=== PATIENT | male | born 1955 | race Caucasian/White ===

== ENCOUNTER 2017-04-07 00:15 | Inpatient (IN) | payer MEDICARE, OTHER ==
[2017-04-07] VITALS (7 sets, daily range): BP systolic 84–120; BP diastolic 55–76; PULSE 86–105; RESP 15–18; TEMP 97.5–98.6; O2SAT 95–97
[~2017-04-07] VITALS: Ht 182.9 cm; Wt 72.6 kg
[~2017-04-07 00:15] MED LIST: MORP30SU PO; POTA-267 PO; RANI150 PO; WARF7.5 PO
[2017-04-07] MEDS ORDERED: GABA300C5 PO (00:40)
[2017-04-07] MEDS ORDERED: TRAD5TAB PO (01:01)
[2017-04-07] MEDS ORDERED: THAL50CA PO (01:01)
[2017-04-07] MEDS ORDERED: WARF-20 PO (01:01)
[2017-04-07] MEDS ORDERED: ACYC400T PO (01:02)
[2017-04-07] MEDS ORDERED: ZANT150T2 PO (01:02)
[2017-04-07] MEDS ORDERED: METO25TA3 PO (01:02)
[2017-04-07] MEDS ORDERED: DEXA4TAB PO (01:05)
[2017-04-07] MEDS ORDERED: ATOR80TA45 PO (01:05)
[2017-04-07 01:24] LABS: INTERNATIONAL NORMALIZED RATIO 1.2 RATIO; PROTHROMBIN TIME - PATIENT 12.6 SEC (9.8-11.6)
[2017-04-07] MEDS ORDERED: CHEMO MEDICATION (01:31)
[2017-04-07 02:03] LABS: AUTOMATED NEUTROPHIL # 8.8 TH/MM3 (1.8-7.7); BASOPHIL % 0.1 % (0.0-2.0); EOSINOPHIL % 0.1 % (0.0-4.0); HEMATOCRIT 34.1 % (39.0-51.0); HEMOGLOBIN 11.5 GM/DL (13.0-17.0); LYMPH % 8.1 % (9.0-44.0); LYMPHOCYTE # 0.9 TH/MM3 (1.0-4.8); MEAN CORPUSCULAR HEMOGLOBIN 30.6 PG (27.0-34.0); MEAN CORPUSCULAR HGB CONC 33.6 % (32.0-36.0); MEAN PLATELET VOLUME 9.1 FL (7.0-11.0); MONO % 12.4 % (0.0-8.0); MONOCYTE # 1.4 TH/MM3 (0-0.9); NEUT % 79.3 % (16.0-70.0); PLATELET COUNT 120 TH/MM3 (150-450); RED BLOOD COUNT 3.75 MIL/MM3 (4.50-5.90); RED CELL DISTRIBUTION WIDTH 16.9 % (11.6-17.2); WHITE BLOOD COUNT 11.1 TH/MM3 (4.0-11.0)
[2017-04-07 02:38] LABS: BANDS 8 % (0-6); CORRECTED NUCLEATED RBC 1 /100 WBC (0-0); LYMPHOCYTES 2 % (9-44); MONOCYTES 6 % (0-8); MYELOCYTES 2 % (0-0); NEUTROPHIL # MANUAL DIFF 10.2 TH/MM3 (1.8-7.7); NUCLEATED RED BLOOD CELL 1 (0-0); POLYS (SEG NEUTROPHILS) 82 % (16-70)
--- NOTE | 2017-04-07 03:23 | PD ---
HPI Chief Complaint: Suicide Ideation/Attempt Time Seen by Provider: 00:31 Travel History International Travel<30 days: No Contact w/Intl Traveler<30days: No Traveled to known affect area: No History of Present Illness HPI 62-year-old white male with a history of multiple myeloma and hemodialysis presents to emergency department under Holly act for making suicidal statements of overdosing on his medicines. The patient states that he has terminal cancer. He had been living with his son. He was just recently [facility]. He has been out of the hospital now only for last few days. He states that she was concerned that he might be dying. He states that he had his hemodialysis yesterday. Patient is followed by Dr. Huerta. Patient denies any fevers fever or chills. No chest pain or shortness of breath. No nausea vomiting. No abdominal pain or urinary symptoms. He denies any bone pain. PFSH Past Medical History Asthma: No Cancer: Yes (MULTIPLE MYELOMA) Cardiovascular Problems: Yes (PT. STATES RAPID PULSE AT TIMES OVER PAST 10 YRS , ONLY LAST 10 MIN) COPD: No Diabetes: No Patient Takes Glucophage: No Diminished Hearing: No Endocrine: No Genitourinary: No Hepatitis: No Hiatal Hernia: No Hypertension: Yes Immune Disorder: No Kidney Stones: Yes Musculoskeletal: No Neurologic: No Psychiatric: No (PT DENIES) Reproductive: No Respiratory: No Immunizations Current: Yes Thyroid Disease: No Past Surgical History Abdominal Surgery: Yes (APPENDECTOMY) Appendectomy: Yes Endocrine Surgery: No Neurologic Surgery: No Other Surgery: Yes Social History Alcohol Use: No (PT DENIES) Tobacco Use: No Substance Use: No Allergies-Medications (Allergen,Severity, Reaction): Coded Allergies: No Known Allergies (Verified , 10/29/12) Reported Meds & Prescriptions Reported Meds & Active Scripts Active Reported [Chemo Medication] Dexamethasone 4 Mg Tab 12 Mg PO SATURDAY Atorvastatin (Atorvastatin Calcium) 80 Mg Tab 80 Mg PO DAILY Acyclovir 400 Mg Tab 400 Mg PO DAILY Metoprolol Tartrate 25 Mg Tab 12.5 Mg PO BID Zantac (Ranitidine HCl) 150 Mg Tab 150 Mg PO DAILY Warfarin 4 Mg Tab 4 Mg PO DAILY Tradjenta (Linagliptin) 5 Mg Tab 5 Mg PO DAILY Thalomid (Thalidomide) 50 Mg Cap 50 Mg PO DAILY Gabapentin 300 Mg Cap 300 Mg PO DAILY Review of Systems General / Constitutional: No: Fever Eyes: No: Visual changes HENT: No: Headaches Cardiovascular: No: Chest Pain or Discomfort Respiratory: No: Shortness of Breath Gastrointestinal: No: Abdominal Pain Genitourinary: No: Dysuria Musculoskeletal: No: Pain Skin: No Rash Neurologic: No: Weakness Psychiatric: Positive: Depression, Mood Disorder, No: Anxiety, Suicidal Ideations, Disorder of Thought, Substance Abuse, Homicidal Ideation Endocrine: No: Polydipsia Hematologic/Lymphatic: No: Easy Bruising Physical Exam Narrative GENERAL: Well-nourished, well-developed patient. Chronically ill appearing. SKIN: Warm and dry. HEAD: Normocephalic and atraumatic. EYES: No scleral icterus. No injection or drainage. ENT: No nasal drainage noted. Mucous membranes pink and somewhat dry. Airway patent. NECK: Supple, trachea midline. Moves head freely without obvious discomfort. Prior dialysis catheter in the right upper chest. There is a dialysis catheter in the left upper chest CARDIOVASCULAR: Regular rate and rhythm without murmurs, gallops, or rubs. RESPIRATORY: Breath sounds equal bilaterally. No accessory muscle use. GASTROINTESTINAL: Abdomen soft, non-tender, nondistended. EXTREMITIES: No cyanosis or edema. BACK: Nontender without obvious deformity. No CVA tenderness. NEURO: Patient is alert and oriented. no sensorimotor deficits. Nonfocal. Normal speech. PSYCH: No delusions. No auditory or visual hallucinations. Data Data Last Documented VS Vital Signs Date Time Temp Pulse Resp B/P (MAP) Pulse Ox O2 Delivery O2 Flow Rate FiO2 04/07/17 02:09 98 16 91/55 (67) 96 Room Air 04/07/17 00:57 98.6 Orders Orders Complete Blood Count With Diff (04/07/17 00:30) Comprehensive Metabolic Panel (04/07/17 00:30) Psych Screen (04/07/17 00:30) Drug Screen, Random Urine (04/07/17 00:30) Alcohol (Ethanol) (04/07/17 00:30) Salicylates (Aspirin) (04/07/17 00:30) Tylenol (Acetaminophen) (04/07/17 00:30) Prothrombin Time / Inr (Pt) (04/07/17 00:35) Act Partial Throm Time (Ptt) (04/07/17 00:35) Labs Laboratory Tests Test 04/07/17 00:50 04/07/17 01:40 Prothrombin Time 12.6 SEC Prothromb Time International Ratio 1.2 RATIO Activated Partial Thromboplast Time 21.9 SEC Salicylates Level LESS THAN 1.7 MG/DL White Blood Count 11.1 TH/MM3 Red Blood Count 3.75 MIL/MM3 Hemoglobin 11.5 GM/DL Hematocrit 34.1 % Mean Corpuscular Volume 91.0 FL Mean Corpuscular Hemoglobin 30.6 PG Mean Corpuscular Hemoglobin Concent 33.6 % Red Cell Distribution Width 16.9 % Platelet Count 120 TH/MM3 Mean Platelet Volume 9.1 FL Neutrophils (%) (Auto) 79.3 % Lymphocytes (%) (Auto) 8.1 % Monocytes (%) (Auto) 12.4 % Eosinophils (%) (Auto) 0.1 % Basophils (%) (Auto) 0.1 % Neutrophils # (Auto) 8.8 TH/MM3 Lymphocytes # (Auto) 0.9 TH/MM3 Monocytes # (Auto) 1.4 TH/MM3 Eosinophils # (Auto) 0.0 TH/MM3 Basophils # (Auto) 0.0 TH/MM3 CBC Comment AUTO DIFF Differential Total Cells Counted 100 Neutrophils % (Manual) 82 % Band Neutrophils % 8 % Lymphocytes % 2 % Monocytes % 6 % Neutrophils # (Manual) 10.2 TH/MM3 Myelocytes 2 % Nucleated Red Blood Cells 1 /100 WBC Differential Comment FINAL DIFF MANUAL Platelet Estimate LOW Platelet Morphology Comment NORMAL MDM Medical Decision Making Medical Screen Exam Complete: Yes Emergency Medical Condition: Yes Medical Record Reviewed: Yes Differential Diagnosis MDM: High Differential diagnoses: Schizophrenia, schizoaffective disorder, bipolar, anxiety, depression, adjustment reaction, mood disorder NOS, ODD, depressive disorder NOS, dementia, dementia with agitation, psychosis NOS, substance induced mood disorder, DMDD, Asperger syndrome, infection,electrolyte abnormality, malingering. Narrative Course We will attempt to get his medical records from [place] The patient is medically cleared. Finn Schroeder Apr 07, 2017 03:23
[2017-04-07 03:56] LABS: ACETAMINOPHEN LESS THAN 2.0 MCG/ML (10.0-30.0); ALBUMIN 2.5 GM/DL (3.4-5.0); ALKALINE PHOSPHATASE 132 U/L (45-117); ALT (GPT) 18 U/L (12-78); AST (GOT) 44 U/L (15-37); BICARBONATE 27.2 MEQ/L (21.0-32.0); BLOOD UREA NITROGEN 12 MG/DL (7-18); CALCIUM 8.3 MG/DL (8.5-10.1); CHLORIDE 102 MEQ/L (98-107); CREATININE 3.12 MG/DL (0.60-1.30); GLOMERULAR FILTRATION RATE 20 ML/MIN (>89); GLUCOSE,RANDOM 101 MG/DL (74-106); SODIUM (NA) 137 MEQ/L (136-145); TOTAL BILIRUBIN ADULT 0.8 MG/DL (0.2-1.0); TOTAL PROTEIN 9.8 GM/DL (6.4-8.2)
[2017-04-07 06:51] LABS: AMORPHOUS SEDIMENT, URINE FEW; BACTERIA, URINE FEW /hpf; BLOOD, URINE MOD (NEG); GLUCOSE,URINE NEG (NEG); HYALINE CAST, URINE 1 /lpf (RARE); KETONE, URINE TRACE mg/dL (NEG); MUCUS URINE FEW /lpf (OCC); NITRITE,URINE NEG (NEG); SQUAMOUS EPITHELIAL CELL URINE 14 /hpf (0-5); URINE COLOR YELLOW (YELLW/STRAW); URINE LEUKOCYTE ESTERASE TRACE (NEG)
[2017-04-07 06:57] LABS: BILIRUBIN, URINE NEG (NEG)
[2017-04-07] MEDS: CEPHALEXIN MONOHYDRATE 250 MG CAP PO SCH ×2 (08:39→15:01)
--- NOTE | 2017-04-07 08:39 | PD ---
Physical Exam Time Seen by Provider: 08:30 Narrative 0830: I reviewed the patient's labs and urinalysis with signs of infection. Reflex to urine culture. Patient on hemodialysis. Keflex 250 mg ordered every 8 hours for calculated creatinine clearance of 31. Data Data Last Documented VS Vital Signs Date Time Temp Pulse Resp B/P (MAP) Pulse Ox O2 Delivery O2 Flow Rate FiO2 04/07/17 04:18 109/62 (78) 04/07/17 03:14 90 15 96 Room Air 04/07/17 00:57 98.6 Orders Orders Complete Blood Count With Diff (04/07/17 00:30) Comprehensive Metabolic Panel (04/07/17 00:30) Psych Screen (04/07/17 00:30) Drug Screen, Random Urine (04/07/17 00:30) Alcohol (Ethanol) (04/07/17 00:30) Salicylates (Aspirin) (04/07/17 00:30) Tylenol (Acetaminophen) (04/07/17 00:30) Prothrombin Time / Inr (Pt) (04/07/17 00:35) Act Partial Throm Time (Ptt) (04/07/17 00:35) Urinalysis - C+S If Indicated (04/07/17 05:48) Urine Culture (04/07/17 06:05) Diet Regular Basic (04/07/17 Breakfast) Cephalexin (Keflex) (04/07/17 08:30) Labs Laboratory Tests Test 04/07/17 00:50 04/07/17 01:40 04/07/17 06:05 Prothrombin Time 12.6 SEC Prothromb Time International Ratio 1.2 RATIO Activated Partial Thromboplast Time 21.9 SEC Blood Urea Nitrogen 12 MG/DL Creatinine 3.12 MG/DL Random Glucose 101 MG/DL Total Protein 9.8 GM/DL Albumin 2.5 GM/DL Calcium Level 8.3 MG/DL Alkaline Phosphatase 132 U/L Aspartate Amino Transf (AST/SGOT) 44 U/L Alanine Aminotransferase (ALT/SGPT) 18 U/L Total Bilirubin 0.8 MG/DL Sodium Level 137 MEQ/L Potassium Level 3.3 MEQ/L Chloride Level 102 MEQ/L Carbon Dioxide Level 27.2 MEQ/L Anion Gap 8 MEQ/L Estimat Glomerular Filtration Rate 20 ML/MIN Salicylates Level LESS THAN 1.7 MG/DL Acetaminophen Level LESS THAN 2.0 MCG/ML Ethyl Alcohol Level LESS THAN 3 MG/DL White Blood Count 11.1 TH/MM3 Red Blood Count 3.75 MIL/MM3 Hemoglobin 11.5 GM/DL Hematocrit 34.1 % Mean Corpuscular Volume 91.0 FL Mean Corpuscular Hemoglobin 30.6 PG Mean Corpuscular Hemoglobin Concent 33.6 % Red Cell Distribution Width 16.9 % Platelet Count 120 TH/MM3 Mean Platelet Volume 9.1 FL Neutrophils (%) (Auto) 79.3 % Lymphocytes (%) (Auto) 8.1 % Monocytes (%) (Auto) 12.4 % Eosinophils (%) (Auto) 0.1 % Basophils (%) (Auto) 0.1 % Neutrophils # (Auto) 8.8 TH/MM3 Lymphocytes # (Auto) 0.9 TH/MM3 Monocytes # (Auto) 1.4 TH/MM3 Eosinophils # (Auto) 0.0 TH/MM3 Basophils # (Auto) 0.0 TH/MM3 CBC Comment AUTO DIFF Differential Total Cells Counted 100 Neutrophils % (Manual) 82 % Band Neutrophils % 8 % Lymphocytes % 2 % Monocytes % 6 % Neutrophils # (Manual) 10.2 TH/MM3 Myelocytes 2 % Nucleated Red Blood Cells 1 /100 WBC Differential Comment FINAL DIFF MANUAL Platelet Estimate LOW Platelet Morphology Comment NORMAL Urine Color YELLOW Urine Turbidity HAZY Urine pH 6.0 Urine Specific [place] 1.024 Urine Protein GREATER THAN 600 mg/dL Urine Glucose (UA) NEG mg/dL Urine Ketones TRACE mg/dL Urine Occult Blood MOD Urine Nitrite NEG Urine Bilirubin NEG Urine Urobilinogen 2.0 MG/DL Urine Leukocyte Esterase TRACE Urine RBC 3 /hpf Urine WBC 9 /hpf Urine Squamous Epithelial Cells 14 /hpf Urine Amorphous Sediment FEW Urine Bacteria FEW /hpf Urine Hyaline Casts 1 /lpf Urine Mucus FEW /lpf Microscopic Urinalysis Comment CULTURE INDICATED Urine Opiates Screen NEG Urine Barbiturates Screen NEG Urine Amphetamines Screen NEG Urine Benzodiazepines Screen POS Urine Cocaine Screen NEG Urine Cannabinoids Screen NEG MDM Supervised Visit with CHRIS: No Narrative Course 0830: I reviewed the patient's labs and urinalysis with signs of infection. Reflex to urine culture. Patient on hemodialysis. Keflex 250 mg ordered every 8 hours for calculated creatinine clearance of 31. Diagnosis Primary Impression: Urinary tract infection Qualified Codes: N39.0 - Urinary tract infection, site not specified Arely Gomez [facility] Apr 07, 2017 08:39
--- NOTE | 2017-04-07 11:18 | MB ---
cc: ÁNGEL SERRANO DATE OF CONSULTATION: 04/07/2017 PHYSICIAN REQUESTING CONSULTATION Emergency department REASON FOR CONSULTATION Holly Act HISTORY OF PRESENT ILLNESS Mr. Benitez is a 62-year-old male with possible history of some depression issues who presents under a Holly Act by [facility]'s Department alleging that the patient stated to the family that he wanted to end it all. Of note the patient has multiple myeloma and is on hemodialysis and told the ED provider that he has terminal cancer. Reviewing the electronic medical record, I see no previous psychiatric contact within our system. The patient is seen and examined. Chart reviewed. Case discussed with nurse in the J pod. On my examination today, the patient admits to making statements regarding wanting to end it all. He says that he had just gone to dialysis and was "feeling pretty low." He endorses poor sleep and poor appetite. He endorses anhedonia. He endorses hopeless and worthless feelings. He is fairly inert and psychomotor slowed. He denies any actual suicidal or homicidal ideation but seems unreliable to contract for safety in his present state. Denies audiovisual hallucinations. No delusions elicited. Denies subjective confusion although mental status testing suggests a delirious process, see below. The remainder of psychiatric ROS is negative. No physical complaints. With the patient's permission, I did endeavor to obtain collateral from his son Blaine Benitez at [phone] and left a generic voice mail requesting a call back. I also tried to reach Blaine at an alternate number [phone] and left a generic voice mail there as well. PAST PSYCHIATRIC HISTORY Unclear if the patient is a reliable historian as he is somewhat confused as I said. The patient initially denies a history of psychiatric diagnosis but then does admit to a course of treatment with antidepressants but says that they were ineffective. He is not currently under the care of a psychiatrist. He denies a history of psychiatric admissions or suicide attempts. FAMILY HISTORY The patient denies family history of serious mental illness or suicide. CHEMICAL DEPENDENCY HISTORY: The patient denies any abuse of drugs or alcohol. SOCIAL HISTORY The patient initially could not tell me with whom he lived but then clarified that he lives with his son, Blaine. He is with three children. He is college educated and previously worked as an junior accountant bookkeeper. He denies any history. Denies any access to guns or firearms. He believes in God. PAST MEDICAL HISTORY See electronic medical record. MEDICATIONS 1. Acyclovir 400 mg daily. 2. Warfarin 4 mg daily. 3. Atorvastatin 80 mg daily. 4. Metoprolol 12.5 mg twice daily. 5. Gabapentin 300 mg daily. 6. Zantac 150 mg daily. 7. Dexamethasone 12 mg on Saturday. 8. Tradjenta 5 mg daily. 9. Thalidomide 50 mg daily. ALLERGIES No known allergies. REVIEW OF SYSTEMS Except as noted in HPI this is negative. PHYSICAL EXAMINATION Vital signs: Temperature 98.6, pulse 90, respirations 15, blood pressure 84/60, pulse oximetry 96% on room air. Physical examination completed by the ED provider. On my examination today, the patient appears to be in no acute physical distress. He is somewhat ill-appearing. No motor abnormalities noted. LABORATORY Reviewed: CBC reveals mild leukocytosis with white blood cell count of 11.1. Mild anemia with a hemoglobin of 11.5 and mild thrombocytopenia with platelet count 120. CMP reveals mild transaminitis and hypokalemia at 3.3. Urine toxicology is positive for benzodiazepines. Alcohol level undetectable. Urinalysis concerning for UTI and urine culture is pending. No head imaging on file. MENTAL STATUS EXAM The patient is in hospital attire. He is fairly disheveled and ill-appearing. He is awake and alert and oriented to person, month and year only. He is unsure of the location. His registration is 3/3 but his recall at three minutes is 0/3. He is able to spell the word world forwards but gives it backwards as WORLD. He is unable to perform vigilance A testing. He is able to name two items but cannot repeat a phrase. He gives the current president as Trump but is unsure of any previous presidents. No motor abnormalities noted. Speech is somewhat slow but otherwise within normal limits for tone and volume. Language and fund of knowledge are fair. Focus and concentration seem impaired. Memory seems impaired on clinical exam. Mood is dysphoric and affect restricted. Thought process somewhat disorganized consistent with his confusional state. No delusions elicited. Denies audiovisual hallucinations. Denies suicidal or homicidal ideation but it is not clear that he is reliable to contract for safety. Insight and judgment seem poor. ASSESSMENT/PLAN 1. Adjustment disorder with depressed mood, F43.21. Rule out major depressive episode. 2. Delirium due to general medical condition, F05. This is a 62-year-old male with psychiatric history as detailed above who is presented to the emergency department under a Holly Act. On my evaluation today, the patient elaborates numerous depressive symptoms. He is confused on my examination today and I wonder about a delirium due to perhaps UTI verses some sort of more persistent neurocognitive disorder. The patient does admit to making statements regarding wanting to end it all to his family but denies suicidal ideation now. I fear that his judgment is quite poor, perhaps because of depressed mood or due to delirium. In any event, I school lunch manager that he is not reliable to contract for safety in his present state. Consequently, I will leave the Holly Act in place and we will plan to admit to the inpatient psychiatric unit for observation. As our inpatient unit is full, I have instructed the nurse to refer the patient for inpatient psychiatric services elsewhere. Recommend the patient be retained in the emergency room until inpatient placement can be found. Thank you very much for this consultation. Ángel Serrano DC/RANDA /10:03 AM /10:43 AM ISABEL
[2017-04-07] MEDS ORDERED: MAGNESIUM HYDROXIDE SUSP 30 ML CUP PO PRN (15:15)
[2017-04-07] MEDS ORDERED: LORazepam 2 MG/ML VIAL IM PRN (15:15)
[2017-04-07] MEDS ORDERED: ACETAMINOPHEN 325 MG TAB PO PRN (15:15)
[2017-04-07] MEDS ORDERED: ALUMINUM/MAGNESIUM/SIMETH 30 ML CUP PO PRN (15:15)
[2017-04-07] MEDS ORDERED: NICOTINE 21 MG/24 HR PATCH T-DERMAL PRN (15:15)
[2017-04-07] MEDS ORDERED: LORazepam 0.5 MG TAB PO PRN (15:15)
[2017-04-07] MEDS ORDERED: BENZTROPINE MESYLATE 2 MG/2 ML VIAL IM PRN (15:15)
[2017-04-07] MEDS ORDERED: BENZTROPINE MESYLATE 1 MG TAB PO PRN (15:15)
[2017-04-07] MEDS ORDERED: diphenhydrAMINE HCL 25 MG CAP PO PRN (15:30)
[2017-04-07] MEDS ORDERED: HYDROmorphone HCL 4 MG TAB PO PRN (17:00)
[2017-04-07] MEDS ORDERED: PROC10003 SQ (17:06)
[2017-04-07] MEDS ORDERED: LORA1TAB12 PO (17:06)
[2017-04-07] MEDS ORDERED: TAMS5CAP PO (17:06)
[2017-04-07] MEDS ORDERED: HYDR4TAB PO (17:06)
[2017-04-07] MEDS ORDERED: MIRA3350 PO (17:06)
[2017-04-07] MEDS ORDERED: VANC1000P IV (17:06)
[2017-04-07] MEDS ORDERED: IPRASOL INH (17:06)
--- NOTE | 2017-04-07 17:09 | PD.CONS ---
HPI Service [facility] Hospitalists Consult Requested By Dr. Dl Serrano Reason for Consult Medical Management Primary Care Physician Dr. Adrian Whitfield MD Diagnoses: History of Present Illness Mr. Benitez is a pleasant 62 y/o male with Multiple Myeloma, diagnosed in 2010 and had multiple pathologic fractures s/p radiation therapy and chemo and underwent autologous bone marrow transplant in 2013, chronic renal failure on HD , and who was recently hospitalized at [facility] from 03/27/17 to 04/05/17 with Methicillin resistant Staph Epidermidis bacteremia and had PermCath removed on 03/30/17. According to the discharge summary from [facility] he was found to have an acute metabolic encephalopathy secondary to sepsis and possible uremia and an infected PermCath with Methicillin resistant Staph Epidermidis and was treated with Vancomycin 1 gram post-dialysis on . The pt states that he only does dialysis two days per week. He states that he did receive his normal dialysis on 04/06/17. Prior to his hospitalization at [facility] the pts Coumadin, which he was taking for recurrent DVTs, was stopped due to hematuria and was following outpt with Urology. Pt was admitted to [facility] on 04/07/17 under Holly Act for reported suicidal ideation. Pt states that after his prolonged hospitalization he wasn't sure he wanted to continue with things and was trying to decide about Hospice. He states that his son thought that he was being suicidal and called the police. Pt denies any suicidal ideation at the time of my evaluation. Review of Systems Constitutional: DENIES: Fever, Chills Eyes: DENIES: Vision loss Ears, nose, mouth, throat: DENIES: Hearing loss Respiratory: DENIES: Cough, Shortness of breath Cardiovascular: DENIES: Chest pain, Palpitations Gastrointestinal: DENIES: Abdominal pain, Black stools, Bloody stools, Diarrhea , Nausea, Vomiting Genitourinary: DENIES: Urgency, Hematuria, Dysuria Musculoskeletal: DENIES: Back pain, Neck pain Integumentary: DENIES: Rash Neurologic: DENIES: Headache Psychiatric: COMPLAINS OF: Depression, DENIES: Confusion Past Family Social History Past Medical History Recently hospitalized at [facility] with Methicillin resistant Staph Epidermidis bacteremia and had PermCath removed on 03/30 Multiple Myeloma, diagnosed in 2010 and had multiple pathologic fractures s/p radiation therapy and chemo and underwent autologous bone marrow transplant in 2014 Chronic renal failure on HD ? Recurrent DVTs, was on chronic anticoagulation with coumadin up until he recently developed hematuria Chemo induced peripheral neuropathy Hx of pathologic fractures due to multiple myeloma, left femur, right shoulder, lumbar vertebrae Steroid induced diabetes mellitus Chronic pain on chronic opiate Past Surgical History Autologous bone marrow transplant 2014 Bone marrow biopsy Appendectomy PermCath placement and recent removal on 03/30/17 Port placement, left chest Orthopedic surgery for femur fracture and humerus fracture Knee arthroscopy Reported Medications -Atorvastatin 80 Mg PO DAILY -Metoprolol Tartrate 12.5 Mg PO BID -Zantac 150 Mg PO DAILY -Warfarin 4 Mg PO DAILY -Tradjenta 5 Mg PO DAILY -Thalomid 50 Mg PO DAILY -Gabapentin 300 Mg PO DAILY -Dilaudid 4mg Q4H PRN -Tamsulosin 0.4mf PO DAILY -Lorazepam 1mg TID PRN Anxiety -Albuterol/Ipratropium 2.5,g-0.5mg/3mL TID -Acyclovir 200 Mg PO BID --Vancomycin 1gram IV --Dexamethasone 4 Mg Tab 12 Mg PO SATURDAY (?4mg ) --Epoetin Juan 10,000units/mL IV Allergies: Coded Allergies: No Known Allergies (Verified , 10/29/12) Family History Father at age 87 from lymphoma Mother at age 86 from Alzheimer dementia Social History Denies any alcohol, tobacco or illicit drug use Physical Exam Vital Signs Vital Signs Date Time Temp Pulse Resp B/P (MAP) Pulse Ox O2 Delivery O2 Flow Rate FiO2 04/07/17 12:02 97.5 95 18 120/76 (91) 97 Room Air 04/07/17 11:46 86 18 116/66 (83) 97 Room Air 04/07/17 04:18 109/62 (78) 04/07/17 03:14 90 15 84/60 (68) 96 Room Air 04/07/17 02:09 98 16 91/55 (67) 96 Room Air 04/07/17 00:57 98.6 94 16 98/56 (70) 96 Room Air Physical Exam GENERAL: This is a well-nourished, well-developed patient, in no apparent distress. SKIN: No rashes, ecchymoses or lesions. Cool and dry. HEENT: Atraumatic. Normocephalic. No temporal or scalp tenderness. No scleral icterus. No injection or drainage. Airway patent. NECK: Trachea midline, supple, nontender. IJ in left neck CARDIO: Regular. RESP: CTA bilaterally. No wheezes, rales, or rhonchi. ABD: +BS, soft, non-tender, nondistended. EXT: Extremities without clubbing, cyanosis, or edema. NEURO: Awake and alert. Motor and sensory grossly within normal limits. Normal speech. Laboratory Laboratory Tests Test 04/07/17 00:50 04/07/17 01:40 04/07/17 06:05 Prothrombin Time 12.6 Prothromb Time International Ratio 1.2 Activated Partial Thromboplast Time 21.9 Blood Urea Nitrogen 12 Creatinine 3.12 Random Glucose 101 Total Protein 9.8 Albumin 2.5 Calcium Level 8.3 Alkaline Phosphatase 132 Aspartate Amino Transf (AST/SGOT) 44 Alanine Aminotransferase (ALT/SGPT) 18 Total Bilirubin 0.8 Sodium Level 137 Potassium Level 3.3 Chloride Level 102 Carbon Dioxide Level 27.2 Anion Gap 8 Estimat Glomerular Filtration Rate 20 Salicylates Level LESS THAN 1.7 Acetaminophen Level LESS THAN 2.0 Ethyl Alcohol Level LESS THAN 3 White Blood Count 11.1 Red Blood Count 3.75 Hemoglobin 11.5 Hematocrit 34.1 Mean Corpuscular Volume 91.0 Mean Corpuscular Hemoglobin 30.6 Mean Corpuscular Hemoglobin Concent 33.6 Red Cell Distribution Width 16.9 Platelet Count 120 Mean Platelet Volume 9.1 Neutrophils (%) (Auto) 79.3 Lymphocytes (%) (Auto) 8.1 Monocytes (%) (Auto) 12.4 Eosinophils (%) (Auto) 0.1 Basophils (%) (Auto) 0.1 Neutrophils # (Auto) 8.8 Lymphocytes # (Auto) 0.9 Monocytes # (Auto) 1.4 Eosinophils # (Auto) 0.0 Basophils # (Auto) 0.0 CBC Comment AUTO DIFF Differential Total Cells Counted 100 Neutrophils % (Manual) 82 Band Neutrophils % 8 Lymphocytes % 2 Monocytes % 6 Neutrophils # (Manual) 10.2 Myelocytes 2 Nucleated Red Blood Cells 1 Differential Comment FINAL DIFF MANUAL Platelet Estimate LOW Platelet Morphology Comment NORMAL Urine Color YELLOW Urine Turbidity HAZY Urine pH 6.0 Urine Specific Pool 1.024 Urine Protein GREATER THAN 600 Urine Glucose (UA) NEG Urine Ketones TRACE Urine Occult Blood MOD Urine Nitrite NEG Urine Bilirubin NEG Urine Urobilinogen 2.0 Urine Leukocyte Esterase TRACE Urine RBC 3 Urine WBC 9 Urine Squamous Epithelial Cells 14 Urine Amorphous Sediment FEW Urine Bacteria FEW Urine Hyaline Casts 1 Urine Mucus FEW Microscopic Urinalysis Comment CULTURE INDICATED Urine Opiates Screen NEG Urine Barbiturates Screen NEG Urine Amphetamines Screen NEG Urine Benzodiazepines Screen POS Urine Cocaine Screen NEG Urine Cannabinoids Screen NEG Date/Time Source Procedure Growth Status 04/07/17 06:05 Urine Clean Catch Urine Culture Pending Worksheet Result Diagram: 04/07/17 0140 04/07/17 0050 Assessment and Plan Problem List: (1) Depression ICD Codes: F32.9 - Major depressive disorder, single episode, unspecified Plan: - Pt is a 62 y/o male with Multiple Myeloma, chronic renal failure on HD, and who was recently hospitalized at [facility] from 03/27/17 to 04/05/17 with Methicillin resistant Staph Epidermidis bacteremia and had PermCath removed on 03/30/17. According to the discharge summary from [facility] he was found to have an acute metabolic encephalopathy secondary to sepsis and possible uremia and an infected PermCath with Methicillin resistant Staph Epidermidis and was treated with Vancomycin 1 gram post-dialysis on , to be completed on . The pt states that he only does dialysis two days per week. He states that he did receive his normal dialysis on 04/06/17. Prior to his hospitalization at [facility] the pts Coumadin, which he was taking for recurrent DVTs, was stopped due to hematuria and was following outpt with Urology. Depression Holly Act for suicidal ideation -Pt was admitted to [facility] on 04/07/17 under Holly Act for reported suicidal ideation. Pt states that after his prolonged hospitalization he wasn't sure he wanted to continue with things and was trying to decide about Hospice. He states that his son thought that he was being suicidal and called the police. Pt denies any suicidal ideation at the time of my evaluation. - Psychiatry is following - Depression management per Psychiatry ESRD on HD Recent Methicillin resistant Staph Epidermidis bacteremia and had PermCath removed on 03/30/17 - Nephrology is consulted - Pt was previously being treated with Vancomycin 1 gram post-dialysis on Tue -Thurs-Sat, to be completed on 04/13/16 according to discharge summary from [facility]. - Monitor labs - Pt also reportedly receives Procrit three times per week according to the discharge summary Multiple Myeloma - diagnosed in 2010 and had multiple pathologic fractures s/p radiation therapy and chemo and underwent autologous bone marrow transplant in 2013 - He follows with Dr. Mayes - Cont. on Thalomid 50 Mg PO DAILY Recurrent DVTs Recent hematuria - Pt had been on Coumadin. This has been on hold due to hematuria - Pt follows as an outpt with Urology - Heparin 5000 units BID for now Steroid induced diabetes mellitus - NovoLog SSI - Accu checks - Home meds continued (2) ESRD (end stage renal disease) ICD Codes: N18.6 - End stage renal disease (3) Myeloma ICD Codes: C90.00 - Multiple myeloma not having achieved remission (4) Anemia ICD Codes: D64.9 - Anemia, unspecified Karen Sharp Apr 07, 2017 17:08
[2017-04-07] MEDS ORDERED: POTASSIUM CHLORIDE 20 MEQ CONTROLLED RELEASE TAB PO ONE (17:15)
--- NOTE | 2017-04-07 17:17 | PD.CONS ---
[facility] Service Nephrology Consult Requested By Reason for Consult ESRD Primary Care Physician Dl Higgins MD History of Present Illness Mr. Azul apparently has multiple myeloma. He has CKD, requiring dialysis. He says he gets dialysis twice weekly but according to previous notes he gets dialysis 3 times /week. Last dialysis was yesterday. He was admitted to [facility] after developing confusion and disorientation. He probably was diagnosed with catheter related sepsis. He is on Vancomycin. PermCath was removed. He now has left IJ Vascath. He has been Holly acted and admitted after he allegedly became suicidal. Patient himself reports that all he wanted to do was talk to hospice about his options. Review of Systems Constitutional: COMPLAINS OF: Fatigue, Weight loss, DENIES: Chills Cardiovascular: DENIES: Chest pain, Palpitations, Syncope Gastrointestinal: DENIES: Abdominal pain, Black stools, Bloody stools Musculoskeletal: DENIES: Joint pain Past Family Social History Allergies: Coded Allergies: No Known Allergies (Verified , 10/29/12) Past Medical History DM 2 Hypertension Multiple myeloma ESRD Anemia Reported Medications Dexamethasone 4 Mg Tab 12 Mg PO SATURDAY Atorvastatin (Atorvastatin Calcium) 80 Mg Tab 80 Mg PO DAILY Acyclovir 400 Mg Tab 400 Mg PO DAILY Metoprolol Tartrate 25 Mg Tab 12.5 Mg PO BID Zantac (Ranitidine HCl) 150 Mg Tab 150 Mg PO DAILY Warfarin 4 Mg Tab 4 Mg PO DAILY Tradjenta (Linagliptin) 5 Mg Tab 5 Mg PO DAILY Thalomid (Thalidomide) 50 Mg Cap 50 Mg PO DAILY Gabapentin 300 Mg Cap 300 Mg PO DAILY Active Ordered Medications Current Medications Medications (Trade) Dose Ordered Sig/Saranya Route Start Time Stop Time Status Last Admin (Keflex) 250 mg Q8HR PO 04/07/17 08:30 04/14/17 08:29 04/07/17 15:01 (Ativan) 0.5 mg Q12H PRN PO 04/07/17 15:15 (Ativan Inj) 0.5 mg Q12H PRN IM 04/07/17 15:15 (Benadryl) 25 mg HS PRN PO 04/07/17 15:30 (Tylenol) 650 mg Q4H PRN PO 04/07/17 15:15 (Milk Of Magnesia Liq) 30 ml DAILY PRN PO 04/07/17 15:15 (Mag-Al Plus Susp Liq) 30 ml Q6H PRN PO 04/07/17 15:15 (Habitrol 21 Mg Patch.24 Hr) 1 patch DAILY PRN T-DERMAL 04/07/17 15:15 (Cogentin) 0.5 mg Q12H PRN PO 04/07/17 15:15 (Cogentin Inj) 0.5 mg Q12H PRN IM 04/07/17 15:15 Miscellaneous Information 1 DAILY T-DERMAL 04/08/17 09:00 (Zovirax) 400 mg DAILY PO 04/08/17 09:00 (Lipitor) 80 mg DAILY PO 04/08/17 09:00 (Decadron) 12 mg Fr@0900 PO 04/12/17 09:00 (Neurontin) 300 mg DAILY PO 04/08/17 09:00 (Lopressor) 12.5 mg BID PO 04/07/17 21:00 (Coumadin) 4 mg DAILY@1600 PO 04/08/17 16:00 Non-Formulary Medication 5 mg DAILY PO 04/08/17 09:00 UNV (Pepcid) 20 mg DAILY PO 04/08/17 09:00 Non-Formulary Medication 50 mg DAILY PO 04/08/17 09:00 UNV Patient Own Medication PT OWN MED: TRADJE... DAILY PO 04/08/17 09:00 UNV Family History reviewed, non contributory Social History Lives with his son in [place]. Physical Exam Vital Signs Vital Signs Date Time Temp Pulse Resp B/P (MAP) Pulse Ox O2 Delivery O2 Flow Rate FiO2 04/07/17 12:02 97.5 95 18 120/76 (91) 97 Room Air 04/07/17 11:46 86 18 116/66 (83) 97 Room Air 04/07/17 04:18 109/62 (78) 04/07/17 03:14 90 15 84/60 (68) 96 Room Air 04/07/17 02:09 98 16 91/55 (67) 96 Room Air 04/07/17 00:57 98.6 94 16 98/56 (70) 96 Room Air Physical Exam GENERAL: awake, alert, oriented. Left IJ Vascath. SKIN: Warm and dry. HEAD: Normocephalic. EYES: No scleral icterus. No injection or drainage. NECK: Supple, trachea midline. No JVD or lymphadenopathy. CARDIOVASCULAR: Regular rate and rhythm without murmurs, gallops, or rubs. RESPIRATORY: Breath sounds equal bilaterally. No accessory muscle use. GASTROINTESTINAL: Abdomen soft, non-tender, nondistended. MUSCULOSKELETAL: No cyanosis, or edema. BACK: Nontender without obvious deformity. No CVA tenderness. Laboratory Laboratory Tests Test 04/07/17 00:50 04/07/17 01:40 04/07/17 06:05 Prothrombin Time 12.6 Prothromb Time International Ratio 1.2 Activated Partial Thromboplast Time 21.9 Blood Urea Nitrogen 12 Creatinine 3.12 Random Glucose 101 Total Protein 9.8 Albumin 2.5 Calcium Level 8.3 Alkaline Phosphatase 132 Aspartate Amino Transf (AST/SGOT) 44 Alanine Aminotransferase (ALT/SGPT) 18 Total Bilirubin 0.8 Sodium Level 137 Potassium Level 3.3 Chloride Level 102 Carbon Dioxide Level 27.2 Anion Gap 8 Estimat Glomerular Filtration Rate 20 Salicylates Level LESS THAN 1.7 Acetaminophen Level LESS THAN 2.0 Ethyl Alcohol Level LESS THAN 3 White Blood Count 11.1 Red Blood Count 3.75 Hemoglobin 11.5 Hematocrit 34.1 Mean Corpuscular Volume 91.0 Mean Corpuscular Hemoglobin 30.6 Mean Corpuscular Hemoglobin Concent 33.6 Red Cell Distribution Width 16.9 Platelet Count 120 Mean Platelet Volume 9.1 Neutrophils (%) (Auto) 79.3 Lymphocytes (%) (Auto) 8.1 Monocytes (%) (Auto) 12.4 Eosinophils (%) (Auto) 0.1 Basophils (%) (Auto) 0.1 Neutrophils # (Auto) 8.8 Lymphocytes # (Auto) 0.9 Monocytes # (Auto) 1.4 Eosinophils # (Auto) 0.0 Basophils # (Auto) 0.0 CBC Comment AUTO DIFF Differential Total Cells Counted 100 Neutrophils % (Manual) 82 Band Neutrophils % 8 Lymphocytes % 2 Monocytes % 6 Neutrophils # (Manual) 10.2 Myelocytes 2 Nucleated Red Blood Cells 1 Differential Comment FINAL DIFF MANUAL Platelet Estimate LOW Platelet Morphology Comment NORMAL Urine Color YELLOW Urine Turbidity HAZY Urine pH 6.0 Urine Specific [place] 1.024 Urine Protein GREATER THAN 600 Urine Glucose (UA) NEG Urine Ketones TRACE Urine Occult Blood MOD Urine Nitrite NEG Urine Bilirubin NEG Urine Urobilinogen 2.0 Urine Leukocyte Esterase TRACE Urine RBC 3 Urine WBC 9 Urine Squamous Epithelial Cells 14 Urine Amorphous Sediment FEW Urine Bacteria FEW Urine Hyaline Casts 1 Urine Mucus FEW Microscopic Urinalysis Comment CULTURE INDICATED Urine Opiates Screen NEG Urine Barbiturates Screen NEG Urine Amphetamines Screen NEG Urine Benzodiazepines Screen POS Urine Cocaine Screen NEG Urine Cannabinoids Screen NEG Date/Time Source Procedure Growth Status 04/07/17 06:05 Urine Clean Catch Urine Culture Pending Worksheet Result Diagram: 04/07/17 0140 04/07/17 0050 Assessment and Plan Problem List: (1) ESRD (end stage renal disease) ICD Codes: N18.6 - End stage renal disease Plan: Last dialysis was yesterday. No indication for dialysis today. Monitor electrolytes and fluid status. Avoid Gadolinium. High protein diet. Fluid restriction to 1500 ml/day. (2) Myeloma ICD Codes: C90.00 - Multiple myeloma not having achieved remission Plan: Has been on chemotherapy. Details of his disease and prognosis are not known to me at this time. (3) Sepsis ICD Codes: A41.9 - Sepsis, unspecified organism Plan: Apparently diagnosed with MRSA sepsis recently. PermCath was removed, and now he has a Vascath. Has been on Vancomycin. We will continue it with dialysis. Review old records. (4) Anemia ICD Codes: D64.9 - Anemia, unspecified Plan: Hemoglobin is acceptable. Assessment and Plan Thanks for the consult. I will follow. Dawit Huber MD Apr 07, 2017 17:17
[2017-04-07] MEDS ORDERED: DEXTROSE 50% IN WATER 50 ML VIAL(D50) IV PUSH PRN (17:30)
[2017-04-07] MEDS ORDERED: GLUCAGON 1 MG/ML VIAL OTHER PRN (17:30)
[2017-04-07] MEDS: INSULIN ASPART SUPPLEMENTAL SCALE SQ SCH (21:00)
[2017-04-07] MEDS: HEPARIN SODIUM - SQ 10,000 UNITS/ML VIAL SQ SCH (21:40)
[2017-04-07] MEDS: TAMSULOSIN HCL 0.4 MG CAP PO SCH (21:41)
[2017-04-07] MEDS: METOPROLOL TARTRATE 25 MG TAB PO SCH (21:41)
[2017-04-08 06:01] LABS: AUTOMATED NEUTROPHIL # 3.5 TH/MM3 (1.8-7.7); BASOPHIL % 0.1 % (0.0-2.0); EOSINOPHIL % 0.4 % (0.0-4.0); HEMATOCRIT 33.1 % (39.0-51.0); HEMOGLOBIN 11.2 GM/DL (13.0-17.0); LYMPH % 16.2 % (9.0-44.0); LYMPHOCYTE # 0.9 TH/MM3 (1.0-4.8); MEAN CELL VOLUME 91.2 FL (80.0-100.0); MEAN CORPUSCULAR HEMOGLOBIN 30.9 PG (27.0-34.0); MEAN CORPUSCULAR HGB CONC 33.9 % (32.0-36.0); MONO % 17.8 % (0.0-8.0); NEUT % 65.5 % (16.0-70.0); PLATELET COUNT 95 TH/MM3 (150-450); RED BLOOD COUNT 3.63 MIL/MM3 (4.50-5.90); RED CELL DISTRIBUTION WIDTH 16.9 % (11.6-17.2); WHITE BLOOD COUNT 5.4 TH/MM3 (4.0-11.0)
[2017-04-08 06:29] VITALS: BP 134/82; PULSE 89; RESP 18; TEMP 97.4; O2SAT 96
[2017-04-08 06:43] LABS: ALBUMIN 2.2 GM/DL (3.4-5.0); ALKALINE PHOSPHATASE 109 U/L (45-117); ALT (GPT) 14 U/L (12-78); AST (GOT) 23 U/L (15-37); BICARBONATE 26.1 MEQ/L (21.0-32.0); BLOOD UREA NITROGEN 21 MG/DL (7-18); CALCIUM 8.3 MG/DL (8.5-10.1); CHLORIDE 104 MEQ/L (98-107); CHOLESTEROL 75 MG/DL (120-200); CHOLESTEROL/ HDL RATIO 2.35 RATIO; CREATININE 4.62 MG/DL (0.60-1.30); GLOMERULAR FILTRATION RATE 13 ML/MIN (>89); GLUCOSE,RANDOM 96 MG/DL (74-106); HDL CHOLESTEROL 31.9 MG/DL (40.0-60.0); LDL CHOLESTEROL 1 MG/DL (0-99); PHOSPHORUS 2.5 MG/DL (2.5-4.9); SODIUM (NA) 137 MEQ/L (136-145); TOTAL BILIRUBIN ADULT 0.7 MG/DL (0.2-1.0); TOTAL PROTEIN 8.8 GM/DL (6.4-8.2); TRIGLYCERIDES 212 MG/DL (42-150)
[2017-04-08 07:21] LABS: BANDS 21 % (0-6); LYMPHOCYTES 6 % (9-44); METAMYELOCYTES 2 % (0-1); MONOCYTES 14 % (0-8); MYELOCYTES 1 % (0-0); NEUTROPHIL # MANUAL DIFF 4.3 TH/MM3 (1.8-7.7); POLYS (SEG NEUTROPHILS) 55 % (16-70); PROMYELOCYTES 1 % (0-0)
[2017-04-08] MEDS: INSULIN ASPART SUPPLEMENTAL SCALE SQ SCH ×4 (07:24→21:00)
[2017-04-08] MEDS: REMOVE OLD PATCH T-DERMAL SCH (07:29)
[2017-04-08] MEDS ORDERED: POTASSIUM CHLORIDE 20 MEQ CONTROLLED RELEASE TAB PO ONE (08:15)
[2017-04-08] MEDS: ATORVASTATIN 80 MG TAB PO SCH (09:00)
[2017-04-08] MEDS ORDERED: NON-FORMULARY DRUG (Linagliptin (Tradjenta) 5 MG) PO SCH (09:00)
[2017-04-08] MEDS: GABAPENTIN 300 MG CAP PO SCH (09:00)
[2017-04-08] MEDS: HEPARIN SODIUM - SQ 10,000 UNITS/ML VIAL SQ SCH ×2 (09:00→21:52)
[2017-04-08] MEDS ORDERED: FAMOTIDINE 20 MG TAB PO SCH (09:00)
[2017-04-08] MEDS ORDERED: PT:TRADJENTA 5 MG PO SCH (09:00)
[2017-04-08] MEDS: ACYCLOVIR 200 MG CAP PO SCH (09:00)
[2017-04-08] MEDS ORDERED: THALIDOMIDE 50 MG PO SCH (09:00)
[2017-04-08] MEDS: METOPROLOL TARTRATE 25 MG TAB PO SCH ×2 (09:00→21:52)
[2017-04-08] MEDS ORDERED: [UNRECOGNIZED DRUG - OTHER] PO SCH (09:00)
--- NOTE | 2017-04-08 10:49 | HHI.HP ---
Provisional Diagnosis Admission Date Apr 07, 2017 at 15:09 [place] I. Adjustment disorder with depressed mood vs major depressive disorder, recurrent , severe Certification of Person's Competence To Provide Express and Informed Consent I have personally examined Reilly Azul , a person being served at [facility] on, Apr 08, 2017 10:49. Express and informed consent means consent voluntarily given in writing, by a competent person, after sufficient explanation and disclosure of the subject matter involved to enable the person to make a knowing and willful decision without any element of force, fraud, deceit, duress, or other form of constraint or coercion. This person is 18 years of age or older, is not now known to be incompetent to consent to treatment with a guardian advocate, and does not have a health care surrogate or proxy currently making medical treatment decisions. I have found this person to be one of the following: [] Competent to provide express and informed consent, as defined above, for voluntary admission to this facility and is competent to provide express and informed consent for treatment. He/she has the consistent capacity to make well reasoned, willful, and knowing decisions concerning his or her medical or mental health treatment. The person fully and consistently understands the purpose of the admission for examination/placement and is fully capable of personally exercising all rights assured [place] [] Incompetent to provide express and informed consent to voluntary admission, and this is incompetent to provide express and informed consent to treatment. The person must be transferred to involuntary status and a petition for a guardian advocate filed with the Circuit Court. [x] Refusing to provide express and informed consent to voluntary admission but is competent to provide express and informed consent for treatment. The person must be discharged or transferred to involuntary status. Form shall be completed within 24 hours of a person's arrival at the receiving facility and filed in the clinical record of each person: 1. Admitted on a voluntary basis 2. Permitted to provide express and informed consent to his/her own treatment 3. Allowed to transfer from involuntary to voluntary status 4. Prior to permitting a person to consent to his or her own treatment after having been previously found incompetent to consent to treatment. History of Present Illness Capacity: Has Capacity HPI As per initial evaluation by Dr. Serrano: "Mr. Azul is a 62-year-old male with possible history of some depression issues who presents under a Holly Act by [facility]'s Department alleging that the patient stated to the family that he wanted to endit all. Of note the patient has multiple myeloma and is on hemodialysis and told the ED provider that he has terminal cancer. Reviewing the electronic medical record, I see no previous psychiatric contact within our system.The patient is seen and examined. Chart reviewed. Case discussed with nurse in the J pod.On my examination today, the patient admits to making statements regarding wanting to end it all. He says that he had just gone to dialysis and was "feeling pretty low." He endorses poor sleep and poor appetite. He endorses anhedonia. He endorses hopeless and worthless feelings. He is fairly inert and psychomotor slowed. He denies any actual suicidal or homicidal ideation but seems unreliable to contract for safety in his present state. Denies audiovisual hallucinations. No delusions elicited. Denies subjective confusion although mental status testing suggests a delirious process, see below. The remainder of psychiatric ROS is negative. No physical complaints.With the patient's permission, I did endeavor to obtain collateral from his son Blaine Azul at [phone] and left a generic voice mail requesting a call back. I also tried to reach Blaine at an alternate number [phone] and left a generic voice mail there as well" Today patient was seen for psychiatric reevaluation. The case was discussed with nurse in charge in morning report. Documentation from weekend psychiatrist and EMR was reviewed. On psychiatric evaluation the patient is calm, superficially cooperative, he looks objectively depressed. She has marked psychomotor retardation and flat affect. However, he reports that he is doing okay, he says that his mood is improved to 8/10 compared with yesterday 2/ 10. The patient says that the reason he was depressed is because he has been very frustrated with his medical situation and after a disagreement with his son. He reports that he never expressed suicidal ideation, he denies SI at this moment. The patient says that he has too many reasons to live for including his family, his son, and also athical and latter-day beliefs. He does report difficulty sleeping, poor energy, poor appetite, but he denies hopelessness, he denies helplessness, he denies worthlessness at this moment. Patient reported that he prefers that his son is not involved in his medical care decisions. He says that he will think about if he wants to meet with his son here in the hospital in order to clarify the situation in a discharge plan. Patient is receptive to take medication to help him with sad mood and poor sleep at night. The patient is fully oriented 3, without any attention deficit , no fluctuation of consciousness at this moment. Patient was able to verbalize and elaborate logically about his medical situation and prognosis. Review of Systems Constitutional: DENIES: Diaphoretic episodes, Fatigue, Fever, Weight gain, Weight loss, Chills, Dizziness, Change in appetite, Night Sweats Endocrine: DENIES: Heat/cold intolerance, Polydipsia, Polyuria, Polyphagia Eyes: DENIES: Blurred vision, Diplopia, Eye inflammation, Eye pain, Vision loss , Photosensitivity, Double Vision Respiratory: DENIES: Apneas, Cough, Snoring, Wheezing, Hemoptysis, Sputum production, Shortness of breath Cardiovascular: DENIES: Chest pain, Palpitations, Syncope, Dyspnea on Exertion , PND, Lower Extremity Edema, Orthopnea, Claudication Gastrointestinal: DENIES: Abdominal pain, Black stools, Bloody stools, Constipation, Diarrhea, Nausea, Vomiting, Difficulty Swallowing, Anorexia Genitourinary: DENIES: Sexual dysfunction, Urinary frequency, Urinary incontinence, Urgency, Hematuria, Dysuria, Nocturia, Penile Discharge, Testicular Pain, Testicular Swelling Musculoskeletal: DENIES: Joint pain, Muscle aches, Stiffness, Joint Swelling, Back pain, Neck pain Integumentary: DENIES: Abnormal pigmentation, Nail changes, Pruritus, Rash Hematologic/lymphatic: DENIES: Bruising, Lymphadenopathy Immunologic/allergic: DENIES: Eczema, Urticaria Neurologic: DENIES: Abnormal gait, Headache, Localized weakness, Paresthesias, Seizures, Speech Problems, Tremor, Poor Balance Psychiatric: COMPLAINS OF: Mood changes, Suicidal Ideation, DENIES: Anxiety, Confusion, Depression, Hallucinations, Agitation, Homicidal Ideation, Delusions Past Psych History Violence risk - self (6 mos) Increased Past Family Social History Coded Allergies: No Known Allergies (Verified , 10/29/12) Reported Medications Epoetin Inj (Procrit Inj) 10,000 Unit/Ml Inj, 98679 UNITS SQ 3XWEEK for Anemia, #12 VIAL 0 Refills 04/07/17 Ipratropium-Albuterol Neb (Duoneb) 0.5-2.5 Mg/3 Ml Neb, 1 NEBULE INH TID NEB for Breathing Treatment, #90 NEBULE 0 Refills 04/07/17 Vancomycin Inj (Vancomycin Inj) 1 Gram Inj, 1000 MG IV TuThSa post dialysis for Infection, BAG 0 Refills To be completed on 04/13/17 04/07/17 Hydromorphone (Hydromorphone) 4 Mg Tab, 4 MG PO Q4HR Y for PAIN, #30 TAB 0 Refills 04/07/17 Lorazepam (Lorazepam) 1 Mg Tab, 1 MG PO Q8H Y for ANXIETY, TAB 0 Refills 04/07/17 Polyethylene Glycol 3350 Powder (Miralax Powder) 17 Gm Powd, 17 GM PO DAILY Y for constipation, #1 CAN 0 Refills Mix and dissolve one measuring cap-ful (17 grams) in water or juice. 04/07/17 Tamsulosin (Flomax) 0.4 Mg Cap, 0.4 MG PO HS for Manage Prostate Problems, #30 CAP 0 Refills 04/07/17 Dexamethasone (Dexamethasone) 4 Mg Tab, 12 MG PO SATURDAY, #60 TAB 0 Refills 04/07/17 Atorvastatin (Atorvastatin) 80 Mg Tab, 80 MG PO DAILY for Cholesterol Management , #30 TAB 0 Refills 04/07/17 Acyclovir (Acyclovir) 400 Mg Tab, 200 MG PO DAILY for Mgmt Viral Infection, TAB 0 Refills 04/07/17 Metoprolol Tartrate (Metoprolol Tartrate) 25 Mg Tab, 12.5 MG PO BID, #60 TAB 0 Refills 04/07/17 Ranitidine (Zantac) 150 Mg Tab, 150 MG PO DAILY for Reduce Stomach Acid, #30 TAB 0 Refills 04/07/17 Warfarin (Warfarin) 4 Mg Tab, 4 MG PO DAILY for Blood Clot Prevention, #30 TAB 0 Refills 04/07/17 Linagliptin (Tradjenta) 5 Mg Tab, 5 MG PO DAILY for Blood Sugar Management, #30 TAB 0 Refills 04/07/17 Thalidomide (Thalomid) 50 Mg Cap, 50 MG PO DAILY for Chemotherapy Management, CAP 0 Refills 04/07/17 Gabapentin (Gabapentin) 300 Mg Cap, 300 MG PO DAILY, #30 CAP 0 Refills 04/07/17 Discontinued Reported Medications Warfarin Sod (Coumadin) 7.5 Mg Tab, 7.5 MG PO DAILY 10/29/12 Morphine Sulfate (Morphine Sulfate) 30 Mg Tab, 15 MG PO Q6 10/29/12 Potassium Chloride (Klor-Con 10) 10 Meq Tab, 10 MEQ PO DAILY 10/29/12 Ranitidine Hcl (Zantac) 150 Mg Tab, 150 MG PO DAILY 10/29/12 Current Medications Medications (Trade) Dose Ordered Sig/[place] Route Start Time Stop Time Status Last Admin (Ativan) 0.5 mg Q12H PRN PO 04/07/17 15:15 04/08/17 03:03 (Ativan Inj) 0.5 mg Q12H PRN IM 04/07/17 15:15 (Benadryl) 25 mg HS PRN PO 04/07/17 15:30 04/08/17 03:03 (Tylenol) 650 mg Q4H PRN PO 04/07/17 15:15 (Milk Of Magnesia Liq) 30 ml DAILY PRN PO 04/07/17 15:15 (Mag-Al Plus Susp Liq) 30 ml Q6H PRN PO 04/07/17 15:15 (Habitrol 21 Mg Patch.24 Hr) 1 patch DAILY PRN T-DERMAL 04/07/17 15:15 (Cogentin) 0.5 mg Q12H PRN PO 04/07/17 15:15 (Cogentin Inj) 0.5 mg Q12H PRN IM 04/07/17 15:15 Miscellaneous Information 1 DAILY T-DERMAL 04/08/17 09:00 (Zovirax) 400 mg DAILY PO 04/08/17 09:00 04/08/17 09:00 (Lipitor) 80 mg DAILY PO 04/08/17 09:00 04/08/17 09:00 (Decadron) 12 mg Fr@0900 PO 04/12/17 09:00 (Neurontin) 300 mg DAILY PO 04/08/17 09:00 04/08/17 09:00 (Lopressor) 12.5 mg BID PO 04/07/17 21:00 04/08/17 09:00 (Pepcid) 20 mg DAILY PO 04/08/17 09:00 04/08/17 09:00 Patient Own Medication PT OWN MED: TRADJE... DAILY PO 04/08/17 09:00 Future Hold (Dilaudid) 4 mg Q4H PRN PO 04/07/17 17:00 (Flomax) 0.4 mg HS PO 04/07/17 21:00 04/07/17 21:41 (Heparin Inj) 5,000 units Q12HR SQ 04/07/17 21:00 04/08/17 09:00 (NovoLOG SUPPLEMENTAL SCALE) 1 ACHS SLIDING SCALE SQ 04/07/17 21:00 (D50w (Vial) Inj) 50 ml UNSCH PRN IV PUSH 04/07/17 17:30 (Glucagon Inj) 1 mg UNSCH PRN OTHER 04/07/17 17:30 Patient Own Medication PT OWN MED: THALO... DAILY PO 04/08/17 09:00 Future Hold (Remeron) 15 mg HS PO 04/08/17 21:00 UNV Physical Exam Vital Signs Vital Signs Date Time Temp Pulse Resp B/P (MAP) Pulse Ox O2 Delivery O2 Flow Rate FiO2 04/08/17 06:29 97.4 89 18 134/82 (99) 96 04/07/17 12:02 Room Air I/O 04/08/17 04/08/17 04/09/17 08:00 16:00 00:00 Intake Total 240 ml Output Total 2 ml Balance 238 ml Lab Results Test 04/08/17 05:22 White Blood Count 5.4 TH/MM3 Red Blood Count 3.63 MIL/MM3 Hemoglobin 11.2 GM/DL Hematocrit 33.1 % Mean Corpuscular Volume 91.2 FL Mean Corpuscular Hemoglobin 30.9 PG Mean Corpuscular Hemoglobin Concent 33.9 % Red Cell Distribution Width 16.9 % Platelet Count 95 TH/MM3 Mean Platelet Volume 9.0 FL Neutrophils (%) (Auto) 65.5 % Lymphocytes (%) (Auto) 16.2 % Monocytes (%) (Auto) 17.8 % Eosinophils (%) (Auto) 0.4 % Basophils (%) (Auto) 0.1 % Neutrophils # (Auto) 3.5 TH/MM3 Lymphocytes # (Auto) 0.9 TH/MM3 Monocytes # (Auto) 1.0 TH/MM3 Eosinophils # (Auto) 0.0 TH/MM3 Basophils # (Auto) 0.0 TH/MM3 CBC Comment AUTO DIFF Differential Total Cells Counted 100 Neutrophils % (Manual) 55 % Band Neutrophils % 21 % Lymphocytes % 6 % Monocytes % 14 % Neutrophils # (Manual) 4.3 TH/MM3 Metamyelocytes 2 % Myelocytes 1 % Promyelocytes 1 % Differential Comment FINAL DIFF MANUAL Platelet Estimate LOW Platelet Morphology Comment NORMAL Blood Urea Nitrogen 21 MG/DL Creatinine 4.62 MG/DL Random Glucose 96 MG/DL Total Protein 8.8 GM/DL Albumin 2.2 GM/DL Calcium Level 8.3 MG/DL Phosphorus Level 2.5 MG/DL Alkaline Phosphatase 109 U/L Aspartate Amino Transf (AST/SGOT) 23 U/L Alanine Aminotransferase (ALT/SGPT) 14 U/L Total Bilirubin 0.7 MG/DL Sodium Level 137 MEQ/L Potassium Level 3.4 MEQ/L Chloride Level 104 MEQ/L Carbon Dioxide Level 26.1 MEQ/L Anion Gap 7 MEQ/L Estimat Glomerular Filtration Rate 13 ML/MIN Triglycerides Level 212 MG/DL Cholesterol Level 75 MG/DL LDL Cholesterol 1 MG/DL HDL Cholesterol 31.9 MG/DL Cholesterol/HDL Ratio 2.35 RATIO Thyroid Stimulating Hormone 3rd Gen 1.700 uIU/ML Date/Time Source Procedure Growth Status 04/07/17 06:05 Urine Clean Catch Urine Culture - Preliminary NO GROWTH IN 24 HOURS. Resulted Mental Status Examination Appearance: Appropriate Consciousness: Alert Orientation: x4 Motor Activity: Abnormal gait (retarded) Speech: Hesitant, Slow Language: Perseveration Fund of Knowledge: Adequate Attention and Concentration: Adequate Memory: Unremarkable Mood: Sad Affect: Sad Thought Process & Associations: Intact Thought Content: Appropriate Hallucination Type: None Delusion Type: None Suicidal Ideation: No Suicidal Plan: No Suicidal Intention: No Homicidal Ideation: No Homicidal Plan: No Homicidal Intention: No Insight: Fair Judgment: Impulsive Assessment & Plan Problem List: (1) Adjustment disorder with depressed mood ICD Codes: F43.21 - Adjustment disorder with depressed mood Assessment & Plan: At the moment of this evaluation the patient seems to be minimizing recent suicidal statement and symptoms of depression. However, patient admits having difficulty sleeping at night, poor concentration level, low level of energy and also decreased sensitivity to frustration. At this moment he denies suicidal and homicidal ideation, he denies visual and auditory hallucinations. Collateral information has not been obtained so far. I will start the patient and Remeron 15 mg at bedtime to help with depression and insomnia. plate worker helper intervention is his still needed for psychosocial assessment, collateral information, individual and group therapy, and to coordinating a safe discharge. Brief supportive psychotherapy, psychoeducation motivation provided. I will consult psychiatry for second opinion, and hospitalist to continue follow-up of his medical conditions. Assessment & Plan Estimated LOS: Braulio Cortes MD Apr 08, 2017 10:49
[2017-04-08] MEDS ORDERED: SODIUM CHLOR 0.9% 1000 ML INJ 1,000 ML IV PRN (11:01)
[2017-04-08] MEDS ORDERED: SODIUM CHLOR 0.9% 1000 ML INJ 1,000 ML OTHER PRN ×2 (11:01)
--- NOTE | 2017-04-08 11:05 | HHI.NPPN ---
Subjective Interval History notes were reviewed. We will plan on dialyzing him tomorrow. Review of Systems General Constitutional: Fatigue Objective Data Data Vital Signs Date Time Temp Pulse Resp B/P (MAP) Pulse Ox O2 Delivery O2 Flow Rate FiO2 04/08/17 06:29 97.4 89 18 134/82 (99) 96 04/07/17 17:00 97.5 105 18 120/75 (90) 95 04/07/17 16:20 04/07/17 12:02 97.5 95 18 120/76 (91) 97 Room Air 04/07/17 11:46 86 18 116/66 (83) 97 Room Air -: 04/08/17 0522 04/08/17 0522 Physical Exam General Appearance: Well Developed, Comfortable, Malnourished Eyes Eye Exam: Pupils Equal Ears & Nose Ears & Nose Exam: Tympanic Membranes Normal Neck Neck Exam: Neck Supple, Trachea Midline Pulmonary Resp Exam: Clear Bilaterally, Breath Sounds Equal Cardiology CV Exam: Regular Gastrointestinal/Abdomen GI Exam: Soft, Non-Tender Extremeties Extremities Exam: No Edema Assessment/Plan Problem List: (1) ESRD (end stage renal disease) ICD Codes: N18.6 - End stage renal disease Plan: We will plan on dialyzing him TTS. Monitor electrolytes and fluid status. Avoid Gadolinium. High protein diet. Fluid restriction to 1500 ml/day. (2) Myeloma ICD Codes: C90.00 - Multiple myeloma not having achieved remission Plan: Has been on chemotherapy. Details of his disease and prognosis are not known to me at this time. (3) Sepsis ICD Codes: A41.9 - Sepsis, unspecified organism Plan: Apparently diagnosed with MRSA sepsis recently. PermCath was removed, and now he has a Vascath. Has been on Vancomycin. We will continue it with dialysis. Stop date is 04/13/17 (4) Anemia ICD Codes: D64.9 - Anemia, unspecified Plan: Hemoglobin is acceptable. Dawit Huber MD Apr 08, 2017 11:05
[2017-04-08] MEDS ORDERED: SODIUM CHLORIDE 0.9% FLUSH 10 ML FLUSH IV FLUSH PRN (11:15)
[2017-04-08] MEDS ORDERED: ALBUMIN 25% INJ 100 ML IV PRN (11:15)
[2017-04-08] MEDS ORDERED: ONDANSETRON HCL 4 MG/2 ML VIAL IV PUSH PRN (11:15)
[2017-04-08] MEDS ORDERED: HEPARIN SODIUM - IV 10,000 UNITS/10 ML VIAL PRN (11:15)
[2017-04-08] MEDS ORDERED: MANNITOL 12.5 GM/50 ML VIAL IV PRN (11:15)
[2017-04-08] MEDS ORDERED: diphenhydrAMINE HCL 25 MG CAP PO PRN (11:15)
[2017-04-08] MEDS ORDERED: GELATIN 12 MM/7 MM FOAM TOP PRN (11:15)
[2017-04-08] MEDS ORDERED: EPOETIN ALFA 10,000 UNITS/ML VIAL IV PUSH PRN (11:15)
[2017-04-08] MEDS ORDERED: HEPARIN SODIUM - IV 10,000 UNITS/10 ML VIAL IV FLUSH PRN (11:15)
[2017-04-08] MEDS ORDERED: cloNIDine HCL 0.1 MG TAB PO PRN (11:15)
[2017-04-08] MEDS ORDERED: ACETAMINOPHEN 325 MG TAB PO PRN (11:15)
[2017-04-08] MEDS ORDERED: NITROGLYCERIN 0.4 MG SL 25 TABS/BTL SL PRN (11:15)
[2017-04-08 12:35] LABS: HEMOGLOBIN A1C 5.9 % (4.3-6.0)
--- NOTE | 2017-04-08 12:40 | HHI.PR ---
Subjective Remarks Pt more confused at the time of examination Nursing staff reports that the pt is intermittently confused. He is without any specific complaints. Objective Vitals Vital Signs Date Time Temp Pulse Resp B/P (MAP) Pulse Ox O2 Delivery O2 Flow Rate FiO2 04/08/17 06:29 97.4 89 18 134/82 (99) 96 04/07/17 17:00 97.5 105 18 120/75 (90) 95 04/07/17 16:20 Result Diagram: 04/08/17 0522 04/08/17 05 Other Results Laboratory Tests Test 04/07/17 00:50 04/07/17 01:40 04/07/17 06:05 04/08/17 05:22 Prothrombin Time 12.6 SEC Prothromb Time International Ratio 1.2 RATIO Activated Partial Thromboplast Time 21.9 SEC Blood Urea Nitrogen 12 MG/DL 21 MG/DL Creatinine 3.12 MG/DL 4.62 MG/DL Random Glucose 101 MG/DL 96 MG/DL Total Protein 9.8 GM/DL 8.8 GM/DL Albumin 2.5 GM/DL 2.2 GM/DL Calcium Level 8.3 MG/DL 8.3 MG/DL Alkaline Phosphatase 132 U/L 109 U/L Aspartate Amino Transf (AST/SGOT) 44 U/L 23 U/L Alanine Aminotransferase (ALT/SGPT) 18 U/L 14 U/L Total Bilirubin 0.8 MG/DL 0.7 MG/DL Sodium Level 137 MEQ/L 137 MEQ/L Potassium Level 3.3 MEQ/L 3.4 MEQ/L Chloride Level 102 MEQ/L 104 MEQ/L Carbon Dioxide Level 27.2 MEQ/L 26.1 MEQ/L Anion Gap 8 MEQ/L 7 MEQ/L Estimat Glomerular Filtration Rate 20 ML/MIN 13 ML/MIN Salicylates Level LESS THAN 1.7 MG/DL Acetaminophen Level LESS THAN 2.0 MCG/ML Ethyl Alcohol Level LESS THAN 3 MG/DL White Blood Count 11.1 TH/MM3 5.4 TH/MM3 Red Blood Count 3.75 MIL/MM3 3.63 MIL/MM3 Hemoglobin 11.5 GM/DL 11.2 GM/DL Hematocrit 34.1 % 33.1 % Mean Corpuscular Volume 91.0 FL 91.2 FL Mean Corpuscular Hemoglobin 30.6 PG 30.9 PG Mean Corpuscular Hemoglobin Concent 33.6 % 33.9 % Red Cell Distribution Width 16.9 % 16.9 % Platelet Count 120 TH/MM3 95 TH/MM3 Mean Platelet Volume 9.1 FL 9.0 FL Neutrophils (%) (Auto) 79.3 % 65.5 % Lymphocytes (%) (Auto) 8.1 % 16.2 % Monocytes (%) (Auto) 12.4 % 17.8 % Eosinophils (%) (Auto) 0.1 % 0.4 % Basophils (%) (Auto) 0.1 % 0.1 % Neutrophils # (Auto) 8.8 TH/MM3 3.5 TH/MM3 Lymphocytes # (Auto) 0.9 TH/MM3 0.9 TH/MM3 Monocytes # (Auto) 1.4 TH/MM3 1.0 TH/MM3 Eosinophils # (Auto) 0.0 TH/MM3 0.0 TH/MM3 Basophils # (Auto) 0.0 TH/MM3 0.0 TH/MM3 CBC Comment AUTO DIFF AUTO DIFF Differential Total Cells Counted 100 100 Neutrophils % (Manual) 82 % 55 % Band Neutrophils % 8 % 21 % Lymphocytes % 2 % 6 % Monocytes % 6 % 14 % Neutrophils # (Manual) 10.2 TH/MM3 4.3 TH/MM3 Myelocytes 2 % 1 % Nucleated Red Blood Cells 1 /100 WBC Differential Comment FINAL DIFF MANUAL FINAL DIFF MANUAL Platelet Estimate LOW LOW Platelet Morphology Comment NORMAL NORMAL Urine Color YELLOW Urine Turbidity HAZY Urine pH 6.0 Urine Specific [place] 1.024 Urine Protein GREATER THAN 600 mg/dL Urine Glucose (UA) NEG mg/dL Urine Ketones TRACE mg/dL Urine Occult Blood MOD Urine Nitrite NEG Urine Bilirubin NEG Urine Urobilinogen 2.0 MG/DL Urine Leukocyte Esterase TRACE Urine RBC 3 /hpf Urine WBC 9 /hpf Urine Squamous Epithelial Cells 14 /hpf Urine Amorphous Sediment FEW Urine Bacteria FEW /hpf Urine Hyaline Casts 1 /lpf Urine Mucus FEW /lpf Microscopic Urinalysis Comment CULTURE INDICATED Urine Opiates Screen NEG Urine Barbiturates Screen NEG Urine Amphetamines Screen NEG Urine Benzodiazepines Screen POS Urine Cocaine Screen NEG Urine Cannabinoids Screen NEG Metamyelocytes 2 % Promyelocytes 1 % Phosphorus Level 2.5 MG/DL Triglycerides Level 212 MG/DL Cholesterol Level 75 MG/DL LDL Cholesterol 1 MG/DL HDL Cholesterol 31.9 MG/DL Cholesterol/HDL Ratio 2.35 RATIO Thyroid Stimulating Hormone 3rd Gen 1.700 uIU/ML Objective Remarks General: NAD, Awake and alert, confused Chest: CTA Cardiac: Regular Abd: +BS, soft ND/NT Ext: No edema A/P Problem List: (1) Depression ICD Codes: F32.9 - Major depressive disorder, single episode, unspecified Plan: - Pt is a 62 y/o male with Multiple Myeloma, chronic renal failure on HD, and who was recently hospitalized at [facility] from 03/27/17 to 04/05/17 with Methicillin resistant Staph Epidermidis bacteremia and had PermCath removed on 03/30/17. According to the discharge summary from [facility] he was found to have an acute metabolic encephalopathy secondary to sepsis and possible uremia and an infected PermCath with Methicillin resistant Staph Epidermidis and was treated with Vancomycin 1 gram post-dialysis on , to be completed on . The pt states that he only does dialysis two days per week. He states that he did receive his normal dialysis on 04/06/17. Prior to his hospitalization at [facility] the pts Coumadin, which he was taking for recurrent DVTs, was stopped due to hematuria and was following outpt with Urology. Depression Holly Act for suicidal ideation -Pt was admitted to [facility] on 04/07/17 under Holly Act for reported suicidal ideation. Pt states that after his prolonged hospitalization he wasn't sure he wanted to continue with things and was trying to decide about Hospice. He states that his son thought that he was being suicidal and called the police. Pt denies any suicidal ideation at the time of my evaluation. - Psychiatry is following - Depression management per Psychiatry - Pt somewhat confused at the time of examination today, ?delirium vs. underlying dementia vs. other - Urine culture with no growth in 24 hours - Thyroid studies are WNL ESRD on HD Recent Methicillin resistant Staph Epidermidis bacteremia and had PermCath removed on 03/30/17 - Nephrology is consulted - Pt was previously being treated with Vancomycin 1 gram post-dialysis on Sat, to be completed on 04/13/16 according to discharge summary from [facility]. - Monitor labs - Pt also reportedly receives Procrit three times per week according to the discharge summary Multiple Myeloma - diagnosed in 2010 and had multiple pathologic fractures s/p radiation therapy and chemo and underwent autologous bone marrow transplant in 2013 - He follows with Dr. Mayes - Cont. on Thalomid 50 Mg PO DAILY Recurrent DVTs Recent hematuria - Pt had been on Coumadin. 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 Assessment and plan formulated with Karen Sharp PA-C. I agree with the above. Karen Sharp Apr 08, 2017 12:40 Bobby Magaña DO Apr 11, 2017 22:07
[2017-04-08] MEDS ORDERED: WARFARIN SOD 4 MG TAB PO SCH (16:00)
[2017-04-08 18:00] VITALS: BP 102/64; PULSE 94; RESP 18; TEMP 97.7; O2SAT 95
[2017-04-08] MEDS ORDERED: MIRTAZAPINE 15 MG TAB PO SCH (21:00)
[2017-04-08] MEDS: TAMSULOSIN HCL 0.4 MG CAP PO SCH (21:53)
[2017-04-09 06:08] VITALS: BP 101/63; PULSE 91; RESP 17; TEMP 97.9; O2SAT 97
[2017-04-09] MEDS: INSULIN ASPART SUPPLEMENTAL SCALE SQ SCH ×4 (08:00→21:00)
[2017-04-09] MEDS: METOPROLOL TARTRATE 25 MG TAB PO SCH ×2 (09:00→20:55)
[2017-04-09] MEDS: REMOVE OLD PATCH T-DERMAL SCH (09:00)
--- NOTE | 2017-04-09 09:32 | HHI.NPPN ---
Subjective General Problems: Anemia Renal Failure: Chronic, End Stage Renal Disease Interval History Seen during dialysis. He is not talkative this morning. Not in distress. (Nadia Aguilar) Review of Systems General Constitutional: Fatigue (Nadia Aguilar) Objective Data Data 04/09/17 04/10/17 19:00 07:00 Intake Total 120 ml Balance 120 ml Intake Oral 120 ml Vital Signs Date Time Temp Pulse Resp B/P (MAP) Pulse Ox O2 Delivery O2 Flow Rate FiO2 04/09/17 06:08 97.9 91 17 101/63 (76) 97 04/08/17 18:00 97.7 94 18 102/64 (77) 95 (Nadia Aguilar) -: 04/08/17 0522 04/08/17 0522 Tubes & Lines: Vas-Cath (Nadia Aguilar) Physical Exam General Appearance: Well Developed, Comfortable, Malnourished (Nadia Aguilar) Eyes Eye Exam: Pupils Equal (Nadia Aguilar) Ears & Nose Ears & Nose Exam: Tympanic Membranes Normal (Nadia Aguilar) Neck Neck Exam: Neck Supple, Trachea Midline (Nadia Aguilar) Pulmonary Resp Exam: Clear Bilaterally, Breath Sounds Equal (Nadia Aguilar) Cardiology CV Exam: Regular (Nadia Aguilar) Gastrointestinal/Abdomen GI Exam: Soft, Non-Tender, Bowel Sounds Present (Nadia Aguilar) Musculoskeletal MS Exam: Joints Intact, Atrophy (Nadia Aguilar) Integumentary Skin Exam: Clear, Warm, Dry, Intact (Nadia Aguilar) Extremeties Extremities Exam: No Edema, Pedal Pulses Palpable (Nadia Aguilar) Neurologic Neuro Exam: Alert (Nadia Aguilar) Psychiatric Psych Remarks Difficult to evaluate (Nadia Aguilar) Assessment/Plan Discussed Condition With: Patient Assessment Summary: Anemia of CKD, Hypertension, End Stage Renal Disease Electrolyte Assessment: Hypokalemia Problem List: (1) ESRD (end stage renal disease) ICD Codes: N18.6 - End stage renal disease Plan: Seen during dialysis today n a 4K, 350 BFR, goal 3L Monitor electrolytes and fluid status. Avoid Gadolinium. High protein diet ordered. Supplements added. Fluid restriction to 1500 ml/day. (2) Myeloma ICD Codes: C90.00 - Multiple myeloma not having achieved remission Plan: Has been on chemotherapy. Details of his disease and prognosis are not known to me at this time. Pt reportedly wanted hospice services. Now is preston acted. (3) Sepsis ICD Codes: A41.9 - Sepsis, unspecified organism Plan: Apparently diagnosed with MRSA sepsis recently. PermCath was removed, and now he has a Vascath. Has been on Vancomycin with dialysis. Stop date is 04/13/17 (4) Anemia ICD Codes: D64.9 - Anemia, unspecified Plan: Hemoglobin is acceptable. (Nadia Aguilar) Plan patient was seen and examined. Agree with above assessment and plan. (Dawit Huber MD) Nadia Aguilar Apr 09, 2017 09:32 Dawit Huber MD Apr 09, 2017 20:49
--- NOTE | 2017-04-09 09:37 | PD.PSY.CON ---
Provisional Diagnosis Admission Date Apr 07, 2017 at 15:09 Kirklin I. 1. Adjustment disorder with depressed mood Rule out major depressive disorder 2. Delirium due to general medical condition Rule out some degree of underlying neurocognitive disorder Kirklin II. Deferred History of Present Illness Service Psychiatry Consult Requested By Dr. Caban Reason for Consult Second opinion for involuntary psychiatric hospitalization Primary Care Physician Dl Higgins MD HPI Patient seen and examined with nurse. Chart reviewed. I saw the patient in consultation on 04/07, and the patient was seen for H&P by Dr. Caban yesterday. I have reviewed his documentation. Case discussed with nurse and in treatment team. On my examination today, patient presents as fairly encephalopathic. He is oriented to person only and is unable to perform attention/concentration testing. Affect is dysphoric and somewhat blunted. Thought process is slowed, and the patient appears generally psychomotor slowed. He is anhedonic and withdrawn. Speech is soft. He denies SI/HI but seems unreliable to contract for safety in his present state. He denies AVH. No delusions. No hypomanic/manic symptoms. Complains of feeling tired. No other physical complaints. I obtained patient's past psychiatric, family, chemical dependency and social history during my initial consultation on 04/07, and these data are unchanged today. I was able to obtain collateral information from patient's son, Blaine, today over the phone. He reports that the patient has no psychiatric history but has been intermittently confused over the last 90 days or so. This past Saturday, patient told Blaine that he was ready for hospice. Patient then called Saturday and entreated his son to come urgently to his house. When Blaine arrived, patient reportedly said he was "ready to end it all" and told Blaine that he wanted to take pills and not wake up. Blaine notes that during this period of confusion over the last 3 months or so patient's functional status has been worsening, and he has been neglecting to eat or bathe and has also been missing dialysis treatments. I discuss plan of care with Blaine in his role as presumptive HCS, and he is in agreement. I have also notified Blaine that there are a few medications, including the Thalidomide, that will need to be brought in from home as they are not stocked in the pharmacy, and Blaine says he will bring them in. Review of Systems ROS Limitations: Poor Historian Other Limited ROS secondary to encephalopathy. Past Family Social History Coded Allergies: No Known Allergies (Verified , 10/29/12) Past Medical History See EMR Reported Medications Epoetin Inj (Procrit Inj) 10,000 Unit/Ml Inj, 19432 UNITS SQ 3XWEEK for Anemia, #12 VIAL 0 Refills 04/07/17 Ipratropium-Albuterol Neb (Duoneb) 0.5-2.5 Mg/3 Ml Neb, 1 NEBULE INH TID NEB for Breathing Treatment, #90 NEBULE 0 Refills 04/07/17 Vancomycin Inj (Vancomycin Inj) 1 Gram Inj, 1000 MG IV TuThSa post dialysis for Infection, BAG 0 Refills To be completed on 04/13/17 04/07/17 Hydromorphone (Hydromorphone) 4 Mg Tab, 4 MG PO Q4HR Y for PAIN, #30 TAB 0 Refills 04/07/17 Lorazepam (Lorazepam) 1 Mg Tab, 1 MG PO Q8H Y for ANXIETY, TAB 0 Refills 04/07/17 Polyethylene Glycol 3350 Powder (Miralax Powder) 17 Gm Powd, 17 GM PO DAILY Y for constipation, #1 CAN 0 Refills Mix and dissolve one measuring cap-ful (17 grams) in water or juice. 04/07/17 Tamsulosin (Flomax) 0.4 Mg Cap, 0.4 MG PO HS for Manage Prostate Problems, #30 CAP 0 Refills 04/07/17 Dexamethasone (Dexamethasone) 4 Mg Tab, 12 MG PO SATURDAY, #60 TAB 0 Refills 04/07/17 Atorvastatin (Atorvastatin) 80 Mg Tab, 80 MG PO DAILY for Cholesterol Management , #30 TAB 0 Refills 04/07/17 Acyclovir (Acyclovir) 400 Mg Tab, 200 MG PO DAILY for Mgmt Viral Infection, TAB 0 Refills 04/07/17 Metoprolol Tartrate (Metoprolol Tartrate) 25 Mg Tab, 12.5 MG PO BID, #60 TAB 0 Refills 04/07/17 Ranitidine (Zantac) 150 Mg Tab, 150 MG PO DAILY for Reduce Stomach Acid, #30 TAB 0 Refills 04/07/17 Warfarin (Warfarin) 4 Mg Tab, 4 MG PO DAILY for Blood Clot Prevention, #30 TAB 0 Refills 04/07/17 Linagliptin (Tradjenta) 5 Mg Tab, 5 MG PO DAILY for Blood Sugar Management, #30 TAB 0 Refills 04/07/17 Thalidomide (Thalomid) 50 Mg Cap, 50 MG PO DAILY for Chemotherapy Management, CAP 0 Refills 04/07/17 Gabapentin (Gabapentin) 300 Mg Cap, 300 MG PO DAILY, #30 CAP 0 Refills 04/07/17 Discontinued Reported Medications Warfarin Sod (Coumadin) 7.5 Mg Tab, 7.5 MG PO DAILY 10/29/12 Morphine Sulfate (Morphine Sulfate) 30 Mg Tab, 15 MG PO Q6 10/29/12 Potassium Chloride (Klor-Con 10) 10 Meq Tab, 10 MEQ PO DAILY 10/29/12 Ranitidine Hcl (Zantac) 150 Mg Tab, 150 MG PO DAILY 10/29/12 Current Medications Medications (Trade) Dose Ordered Sig/Saranya Route Start Time Stop Time Status Last Admin (Ativan) 0.5 mg Q12H PRN PO 04/07/17 15:15 04/08/17 03:03 (Ativan Inj) 0.5 mg Q12H PRN IM 04/07/17 15:15 (Benadryl) 25 mg HS PRN PO 04/07/17 15:30 04/08/17 03:03 (Tylenol) 650 mg Q4H PRN PO 04/07/17 15:15 (Milk Of Magnesia Liq) 30 ml DAILY PRN PO 04/07/17 15:15 (Mag-Al Plus Susp Liq) 30 ml Q6H PRN PO 04/07/17 15:15 (Habitrol 21 Mg Patch.24 Hr) 1 patch DAILY PRN T-DERMAL 04/07/17 15:15 (Cogentin) 0.5 mg Q12H PRN PO 04/07/17 15:15 (Cogentin Inj) 0.5 mg Q12H PRN IM 04/07/17 15:15 Miscellaneous Information 1 DAILY T-DERMAL 04/08/17 09:00 (Zovirax) 400 mg DAILY PO 04/08/17 09:00 04/08/17 09:00 (Lipitor) 80 mg DAILY PO 04/08/17 09:00 04/08/17 09:00 (Decadron) 12 mg Fr@0900 PO 04/12/17 09:00 (Neurontin) 300 mg DAILY PO 04/08/17 09:00 04/08/17 09:00 (Lopressor) 12.5 mg BID PO 04/07/17 21:00 04/08/17 21:52 (Pepcid) 20 mg DAILY PO 04/08/17 09:00 04/08/17 09:00 Patient Own Medication PT OWN MED: TRADJE... DAILY PO 04/08/17 09:00 Future Hold (Dilaudid) 4 mg Q4H PRN PO 04/07/17 17:00 (Flomax) 0.4 mg HS PO 04/07/17 21:00 04/08/17 21:53 (Heparin Inj) 5,000 units Q12HR SQ 04/07/17 21:00 04/08/17 21:52 (NovoLOG SUPPLEMENTAL SCALE) 1 ACHS SLIDING SCALE SQ 04/07/17 21:00 (D50w (Vial) Inj) 50 ml UNSCH PRN IV PUSH 04/07/17 17:30 (Glucagon Inj) 1 mg UNSCH PRN OTHER 04/07/17 17:30 Patient Own Medication PT OWN MED: THALO... DAILY PO 04/08/17 09:00 Future Hold (Remeron) 15 mg HS PO 04/08/17 21:00 04/08/17 21:52 Sodium Chloride 1,000 ml @ 0 mls/hr Q0M PRN OTHER 04/08/17 11:01 (Heparin Inj) 8,000 units UNSCH PRN IV FLUSH 04/08/17 11:15 Sodium Chloride 1,000 ml @ 200 mls/hr Q5H PRN IV 04/08/17 11:01 Sodium Chloride 1,000 ml @ 0 mls/hr Q0M PRN OTHER 04/08/17 11:01 (Mannitol Inj) 12.5 gm UNSCH PRN IV 04/08/17 11:15 Albumin Human 100 ml @ 60 mls/hr UNSCH PRN IV 04/08/17 11:15 (NS Flush) 5 ml UNSCH PRN IV FLUSH 04/08/17 11:15 (Heparin Inj) UNSCH PRN .XX 04/08/17 11:15 (Gentamicin (Dialysis) Inj) 20 mg UNSCH PRN OTHER 04/08/17 11:15 (Zofran Inj) 4 mg UNSCH PRN IV PUSH 04/08/17 11:15 (Tylenol) 650 mg UNSCH PRN PO 04/08/17 11:15 (Benadryl) 25 mg UNSCH PRN PO 04/08/17 11:15 (Nitrostat Sl) 0.4 mg UNSCH PRN SL 04/08/17 11:15 (Catapres) 0.1 mg UNSCH PRN PO 04/08/17 11:15 (Epogen Inj) 10,000 units UNSCH PRN IV PUSH 04/08/17 11:15 (Gelfoam 12 Mm/7 Mm Top) 1 foam UNSCH PRN TOP 04/08/17 11:15 Vancomycin HCl 1000 mg/Sodium Chloride 250 ml @ 250 mls/hr WITH DIALYSIS IV 04/09/17 12:00 04/13/17 11:59 Family Psych History See above Social History See above Patient's Strengths (min. 2) Supportive son. In a monitored setting. Physical Exam Physical exam completed by hospitalist [facility] consultant. On my examination today, the patient appears to be in no acute physical distress. He is fairly ill appearing. No motoric abnormalities noted. Laboratories and vitals signs reviewed: Vital Signs Vital Signs Date Time Temp Pulse Resp B/P (MAP) Pulse Ox O2 Delivery O2 Flow Rate FiO2 04/09/17 06:08 97.9 91 17 101/63 (76) 97 04/07/17 12:02 Room Air I/O 04/09/17 04/09/17 04/10/17 08:00 16:00 00:00 Intake Total 120 ml Balance 120 ml Lab Results Item Value Date Time White Blood Count 5.4 TH/MM3 04/08/17 0522 Hemoglobin 11.2 GM/DL L 04/08/17 0522 Platelet Count 95 TH/MM3 L 04/08/17 0522 Sodium Level 137 MEQ/L 04/08/17 0522 Potassium Level 3.4 MEQ/L L 04/08/17 0522 Chloride Level 104 MEQ/L 04/08/17 0522 Carbon Dioxide Level 26.1 MEQ/L 04/08/17 0522 Creatinine 4.62 MG/DL H # 04/08/17 0522 Estimat Glomerular Filtration Rate 13 ML/MIN L 04/08/17 0522 Blood Urea Nitrogen 21 MG/DL H 04/08/17 0522 Hemoglobin A1c 5.9 % 04/08/17 0522 Aspartate Amino Transf (AST/SGOT) 23 U/L 04/08/17 0522 Alanine Aminotransferase (ALT/SGPT) 14 U/L 04/08/17 0522 Alkaline Phosphatase 109 U/L 04/08/17 0522 Thyroid Stimulating Hormone 3rd Gen 1.700 uIU/ML 04/08/17 0522 Urine Benzodiazepines Screen POS H 04/07/17 0605 Ethyl Alcohol Level LESS THAN 3 MG/DL 04/07/17 0050 Date/Time Source Procedure Growth Status 04/07/17 06:05 Urine Clean Catch Urine Culture - Final NO GROWTH IN 48 HOURS. Complete UA concerning for UTI but culture no growth x 48 hours. EKG sinus rhythm with PVCs. QTcH 424ms, not prolonged. Mental Status Examination Appearance: Disheveled Consciousness: Lethargic Orientation: Person Motor Activity: Other (psychomotor slowed.) Speech: Hesitant, Slow Language: Perseveration Attention and Concentration: Other (impaired) Mood: Other (dysphoric) Affect: Blunt, Other (dysphoric) Thought Process & Associations: Other (slowed) Thought Content: Appropriate Hallucination Type: None Delusion Type: None Suicidal Ideation: No Suicidal Plan: No Suicidal Intention: No Homicidal Ideation: No Homicidal Plan: No Homicidal Intention: No Insight: Poor Judgment: Poor Assessment & Plan Problem List: (1) Adjustment disorder with depressed mood ICD Codes: F43.21 - Adjustment disorder with depressed mood (2) Delirium due to another medical condition ICD Codes: F05 - Delirium due to known physiological condition Assessment & Plan Given the circumstances of the patient's presentation here, collateral obtained from family, and the patient's presentation on my examination today, I concur with Dr. Caban that the patient meets criteria for involuntary psychiatric hospitalization. I have completed the second opinion paperwork. I will additionally request a healthcare surrogate and guardian advocate as I do not believe that he has capacitated in his present state to consent for medications. I will be assuming care of the patient's case. The patient is more frankly encephalopathic today. He remains fairly dysphoric and, I suspect , depressed. --Discontinue Remeron, Benadryl, Ativan, Dilaudid as all of these could worsen mental status. Replace Pepcid with PPI. We will in general try to avoid opiates, anticholinergics, antihistamines and benzodiazepines given their deleterious effect on mental status. --Initiate Haldol 0.5mg BID for delirium with additional Haldol p.r.n. severe agitation. Melatonin as needed for sleep. --Check ammonia, B12, thiamine, RPR, HIV, Head CT for other reversible causes of encephalopathy. --Hospitalist and nephrology input noted and appreciated. Case d/w Dr. Magaña from the hospitalist service. I agree with the Palliative Medicine consultation. Son reports that patient has advanced directives on file at [facility] , and I will request these records be obtained. --Continue other medications and care as ordered. Discharge Planning To be determined. Request HC Surrog/Guard Advoc?: Yes Dl Serrano MD Apr 09, 2017 09:37
--- NOTE | 2017-04-09 10:16 | HHI.PR ---
Subjective Remarks Pt seen in dialysis today No new complaints Pt afebrile Vital signs are stable Pt able to tell me he is at [facility] and that it is 2018 today Objective Vitals Vital Signs Date Time Temp Pulse Resp B/P (MAP) Pulse Ox O2 Delivery O2 Flow Rate FiO2 04/09/17 06:08 97.9 91 17 101/63 (76) 97 04/08/17 18:00 97.7 94 18 102/64 (77) 95 04/09/17 04/09/17 04/10/17 15:00 23:00 07:00 Intake Total 120 ml Balance 120 ml Intake Oral 120 ml Result Diagram: 04/08/17 0522 04/08/17 0522 Other Results Laboratory Tests Test 04/08/17 05:22 White Blood Count 5.4 TH/MM3 Red Blood Count 3.63 MIL/MM3 Hemoglobin 11.2 GM/DL Hematocrit 33.1 % Mean Corpuscular Volume 91.2 FL Mean Corpuscular Hemoglobin 30.9 PG Mean Corpuscular Hemoglobin Concent 33.9 % Red Cell Distribution Width 16.9 % Platelet Count 95 TH/MM3 Mean Platelet Volume 9.0 FL Neutrophils (%) (Auto) 65.5 % Lymphocytes (%) (Auto) 16.2 % Monocytes (%) (Auto) 17.8 % Eosinophils (%) (Auto) 0.4 % Basophils (%) (Auto) 0.1 % Neutrophils # (Auto) 3.5 TH/MM3 Lymphocytes # (Auto) 0.9 TH/MM3 Monocytes # (Auto) 1.0 TH/MM3 Eosinophils # (Auto) 0.0 TH/MM3 Basophils # (Auto) 0.0 TH/MM3 CBC Comment AUTO DIFF Differential Total Cells Counted 100 Neutrophils % (Manual) 55 % Band Neutrophils % 21 % Lymphocytes % 6 % Monocytes % 14 % Neutrophils # (Manual) 4.3 TH/MM3 Metamyelocytes 2 % Myelocytes 1 % Promyelocytes 1 % Differential Comment FINAL DIFF MANUAL Platelet Estimate LOW Platelet Morphology Comment NORMAL Blood Urea Nitrogen 21 MG/DL Creatinine 4.62 MG/DL Random Glucose 96 MG/DL Total Protein 8.8 GM/DL Albumin 2.2 GM/DL Calcium Level 8.3 MG/DL Phosphorus Level 2.5 MG/DL Alkaline Phosphatase 109 U/L Aspartate Amino Transf (AST/SGOT) 23 U/L Alanine Aminotransferase (ALT/SGPT) 14 U/L Total Bilirubin 0.7 MG/DL Sodium Level 137 MEQ/L Potassium Level 3.4 MEQ/L Chloride Level 104 MEQ/L Carbon Dioxide Level 26.1 MEQ/L Anion Gap 7 MEQ/L Estimat Glomerular Filtration Rate 13 ML/MIN Hemoglobin A1c 5.9 % Triglycerides Level 212 MG/DL Cholesterol Level 75 MG/DL LDL Cholesterol 1 MG/DL HDL Cholesterol 31.9 MG/DL Cholesterol/HDL Ratio 2.35 RATIO Thyroid Stimulating Hormone 3rd Gen 1.700 uIU/ML Objective Remarks General: NAD, Awake and alert Chest: CTA Cardiac: Regular Abd: +BS, soft ND/NT Ext: No edema A/P Problem List: (1) Depression ICD Codes: F32.9 - Major depressive disorder, single episode, unspecified Plan: - Pt is a 62 y/o male with Multiple Myeloma, chronic renal failure on HD, and who was recently hospitalized at [facility] from 03/27/17 to 04/05/17 with Methicillin resistant Staph Epidermidis bacteremia and had PermCath removed on 03/30/17. According to the discharge summary from [facility] he was found to have an acute metabolic encephalopathy secondary to sepsis and possible uremia and an infected PermCath with Methicillin resistant Staph Epidermidis and was treated with Vancomycin 1 gram post-dialysis on [id number], to be completed on . The pt states that he only does dialysis two days per week. He states that he did receive his normal dialysis on 04/06/17. Prior to his hospitalization at [facility] the pts Coumadin, which he was taking for recurrent DVTs, was stopped due to hematuria and was following outpt with Urology. Depression [place] Act for suicidal ideation -Pt was admitted to [facility] on 04/07/17 under Holly Act for reported suicidal ideation. Pt states that after his prolonged hospitalization he wasn't sure he wanted to continue with things and was trying to decide about Hospice. He states that his son thought that he was being suicidal and called the police. Pt denies any suicidal ideation at the time of my evaluation. - Psychiatry is following - Depression management per Psychiatry - Discussed the case with Dr. Waite today who has spoken with the pts family and pt reported told his son that he was going to intentionally overdose with pills and wanted his son at the bedside when he did it and this was the reason for the Holly Act. - Pt seems to have some intermittent confusion but on 04/09/17 at the time of my examination pt was AAOx3 ?delirium vs. underlying dementia vs. other - Urine culture with no growth in 48 hours - Thyroid studies are WNL - Pt would benefit from palliative care consultation today to help the pt and family establish goals of care. Pt has expressed wishes to be on Hospice but this needs to be explored further. ESRD on HD Recent Methicillin resistant Staph Epidermidis bacteremia and had PermCath removed on 03/30/17 - Nephrology is following - Pt was previously being treated with Vancomycin 1 gram post-dialysis on Sat-Sat, to be completed on 04/13/16 according to discharge summary from [facility]. - Pt receiving dialysis today, 04/09/17 - Monitor labs - Pt also reportedly receives Procrit three times per week according to the discharge summary Multiple Myeloma - Diagnosed in 2010 and had multiple pathologic fractures s/p radiation therapy and chemo and underwent autologous bone marrow transplant in 2013 - He follows with Dr. Mayes - Cont. on Thalomid 50 Mg PO DAILY - Dr. Magaña spoke with Dr. Mayes on the phone on 04/09/17 about the pts status with his MM, she reports that the pt has progressive MM and at this point is not a candidate for further treatment. She did states that she felt Hospice would be appropriate. Recurrent DVTs Recent hematuria - Pt had been on Coumadin. 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 Assessment and plan formulated with Karen Sharp PA-C. I agree with the above. Karen Sharp Apr 09, 2017 10:16 Bobby Magaña DO Apr 11, 2017 22:08
[2017-04-09] MEDS: VANCOMYCIN INJ 1,000 MG in SODIUM CHLOR 0.9% 250 ML INJ 250 ML IV SCH (11:10)
[2017-04-09] MEDS: GENTAMICIN SULFATE (DIALYSIS USE ONLY) 20 MG/2 ML VIAL OTHER PRN (12:10)
[2017-04-09] MEDS ORDERED: HALOPERIDOL LACTATE 5 MG/ML AMP IM PRN (13:00)
[2017-04-09] MEDS: ATORVASTATIN 80 MG TAB PO SCH (13:21)
[2017-04-09] MEDS: GABAPENTIN 300 MG CAP PO SCH (13:21)
[2017-04-09] MEDS: ACYCLOVIR 200 MG CAP PO SCH (13:21)
[2017-04-09] MEDS: HEPARIN SODIUM - SQ 10,000 UNITS/ML VIAL SQ SCH ×2 (13:23→20:56)
[2017-04-09 13:49] LABS: CREATININE 4.05 MG/DL (0.60-1.30); MAGNESIUM 1.9 MG/DL (1.5-2.5)
[2017-04-09 16:50] LABS: AUTOMATED NEUTROPHIL # 2.7 TH/MM3 (1.8-7.7); BASOPHIL % 0.3 % (0.0-2.0); EOSINOPHIL % 0.7 % (0.0-4.0); HEMATOCRIT 31.3 % (39.0-51.0); HEMOGLOBIN 10.4 GM/DL (13.0-17.0); LYMPH % 17.1 % (9.0-44.0); LYMPHOCYTE # 0.7 TH/MM3 (1.0-4.8); MEAN CELL VOLUME 90.2 FL (80.0-100.0); MEAN CORPUSCULAR HGB CONC 33.2 % (32.0-36.0); MEAN PLATELET VOLUME 8.7 FL (7.0-11.0); MONO % 13.5 % (0.0-8.0); MONOCYTE # 0.5 TH/MM3 (0-0.9); NEUT % 68.4 % (16.0-70.0); PLATELET COUNT 88 TH/MM3 (150-450); RED BLOOD COUNT 3.47 MIL/MM3 (4.50-5.90); RED CELL DISTRIBUTION WIDTH 16.6 % (11.6-17.2); WHITE BLOOD COUNT 3.9 TH/MM3 (4.0-11.0)
--- NOTE | 2017-04-09 16:59 | EKG ---
Date Performed: 04/09/2017 Time Performed: 11:16:01 PTAGE: 62 years EKG: Sinus rhythm WITH OCCASIONAL SUPRAVENTRICULAR PREMATURE COMPLEXES MODERATE T-WAVE ABNORMALITY, CONSIDER ANTERIOR ISCHEMIA. When compared to previous tracing, previously noted Supraventricular tachycardia is no long er present. ABNORMAL ECG PREVIOUS TRACING : 02/19/2003 05.05 DOCTOR: Terrell Rush Interpretating Date/Time 04/09/2017 17:01:40
--- NOTE | 2017-04-09 17:07 | PD.CONS ---
Consult Service Palliative Care . Consult Requested By Dr. Bobby Magaña . Primary Care Physician Dl Higgins MD . Reason for Consultation a. To assist with evaluation and management of symptoms including: Confusion ; depression; neuropathic pain b. To assist medical decision maker(s) with: better understanding of current medical conditions; weighing benefits/burdens of medical treatment options; making medical treatment decisions. . HPI History of Present Illness is an unfortunate 62-year-old male with a known history of multiple myeloma ; chronic renal failure on hemodialysis; recurrent DVTs; chemotherapy-induced peripheral neuropathy; multiple pathologic fractures; steroid induced diabetes mellitus; and chronic pain syndrome who was brought to the ED after making suicidal statements to his son and suggesting that he might intentionally overdose on his medications. The patient has been battling his multiple myeloma since 2010. He is currently under the care of Dr. Silvia Mayes. The patient has had multiple treatment modalities including radiation and chemotherapy and underwent autologous bone marrow transplant in 2013. As noted above he has had multiple pathologic fractures. He has had multiple hospitalizations with complications from his disease and treatment. He was most recently hospitalized at [facility] from 03/27/17 through 04/05/17 for a methicillin-resistant staph epidermidis bacteremia. The patient had an acute metabolic encephalopathy secondary to sepsis and possible uremia. There was concern for his permacath being infected and this was removed on 03/30/17. The patient has been receiving hemodialysis 2 days a week and has been receiving vancomycin 1 g post dialysis for his infection. Dr. Magaña has spoken with Dr. Mayes who feels the patient is no longer a candidate for further aggressive myeloma directed treatments. Son reports that the patient has had worsening intermittent confusion over the past weeks. With his confusion comes changes in goals of medical treatment. On the day of hospital admission he apparently said he was ready to and wanted hospice. When a hospice nurse arrived at the home, he told her didn't want hospice. In the emergency department initial vital signs were as follows: Temperature 98.6; pulse 98; respiratory rate 16; blood pressure 91/55; pulse oximetry 96% on room air Initial physical examination by the emergency behavioral sciences department chair noted the following: Patient was well-developed/well-nourished but chronically ill- appearing. There is a dialysis catheter in the upper chest. Cardiovascular, respiratory, gastrointestinal, neurological, and psychiatric evaluations were unremarkable. Initial diagnostic tests included the following; * CBC showed WBC 11.1; hemoglobin 11.5; platelet count 120. There were 8% bands. * Coagulation profile showed PT 12.6; INR 1.2; PTT 21.9 * Urinalysis was remarkable for moderate occult blood, trace leukocyte esterase , negative nitrites, 9 WBC/hpf, few bacteria. * Urine tox screen was positive for benzodiazepines but otherwise negative. * Salicylate level was less than 1.7 Patient has been seen by psychiatry and nephrology. Psychiatry found him confused and was concerned about delirium. At time of my visit, patient denies pain, SOB. He says the only pain he gets is his neuropathic pain in the lower extremities and that is reasonably well controlled at this time. He feels he is less depressed then when he came in. He is intermittently confused and takes a long time to process my questions and answer them. He seems to have little insight at this point into his illness. . Function/Cognitive Trajectory Patient has grown weaker with multiple hospitalizations and recent sepsis. He has been able to get back and forth to dialysis. Confusion has been present for several weeks per his son. . Review of Systems ROS Limitations: Clinical Condition (Patient is confused -- ROS taken as well as possible from available records and from telephone conversation wtih son.) Constitutional: COMPLAINS OF: Fatigue, Pain, Generalized weakness, DENIES: Diaphoretic episodes, Fever, Weight gain, Weight loss, Chills, Dizziness Endocrine: DENIES: Polydipsia, Polyuria, Polyphagia Eyes: DENIES: Eye pain, Vision loss Ears, nose, mouth, throat: DENIES: Hearing loss, Throat pain, Epistaxis Respiratory: DENIES: Apneas, Cough, Snoring, Shortness of breath Cardiovascular: DENIES: Chest pain, Palpitations, Dyspnea on Exertion Gastrointestinal: DENIES: Constipation, Diarrhea, Nausea, Vomiting, Dyspepsia or heartburn, Vomiting blood Genitourinary: DENIES: Urinary frequency, Urinary incontinence, Hematuria, Dysuria Musculoskeletal: DENIES: Joint pain, Muscle aches, Back pain, Neck pain Integumentary: DENIES: Pruritus, Rash Hematologic/Lymphatics: COMPLAINS OF: History of transfusions, DENIES: Bruising Immunologic/Allergic: DENIES: Eczema Neurologic: COMPLAINS OF: Paresthesias, DENIES: Headache, Localized weakness, Seizures, Tremor Psychiatric: COMPLAINS OF: Confusion, Mood changes, Depression, Agitation, Suicidal Ideation, DENIES: Anxiety Other ROS: Dialysis patient . Past Family Social History Coded Allergies: No Known Allergies (Verified , 10/29/12) Past Medical History Recently hospitalized at [facility] with Methicillin resistant Staph Epidermidis bacteremia and had PermCath removed on 03/30 Multiple Myeloma, diagnosed in 2010 and had multiple pathologic fractures s/p radiation therapy and chemo and underwent autologous bone marrow transplant in 2014 Chronic renal failure on HD ?[id number]-[id number] Recurrent DVTs, was on chronic anticoagulation with coumadin up until he recently developed hematuria Chemo induced peripheral neuropathy Hx of pathologic fractures due to multiple myeloma, left femur, right shoulder, lumbar vertebrae Steroid induced diabetes mellitus Chronic pain on chronic opiate Past Surgical History Autologous bone marrow transplant 2014 Bone marrow biopsy Appendectomy PermCath placement and recent removal on 03/30/17 Port placement, left chest Orthopedic surgery for femur fracture and humerus fracture Knee arthroscopy . Reported Medications Prehospital medications included the following: Atorvastatin (Atorvastatin Calcium) 80 Mg Tab 80 Mg PO DAILY Acyclovir 400 Mg Tab 400 Mg PO DAILY Metoprolol Tartrate 25 Mg Tab 12.5 Mg PO BID Zantac (Ranitidine HCl) 150 Mg Tab 150 Mg PO DAILY Warfarin 4 Mg Tab 4 Mg PO DAILY Tradjenta (Linagliptin) 5 Mg Tab 5 Mg PO DAILY Thalomid (Thalidomide) 50 Mg Cap 50 Mg PO DAILY Gabapentin 300 Mg Cap 300 Mg PO DAILY Dilaudid 4mg Q4H PRN Tamsulosin 0.4mf PO DAILY Lorazepam 1mg TID PRN Anxiety Albuterol/Ipratropium 2.5,g-0.5mg/3mL TID Vancomycin 1gram IV Lcca-Ocsel-Uer Dexamethasone 4 Mg Tab 12 Mg PO SATURDAY (?4mg ) Epoetin Juan 10,000units/mL IV [id number] . . Current Medications Medications (Trade) Dose Ordered Sig/Saranya Route Start Time Stop Time Status Last Admin (Tylenol) 650 mg Q4H PRN PO 04/07/17 15:15 (Milk Of Magnesia Liq) 30 ml DAILY PRN PO 04/07/17 15:15 (Mag-Al Plus Susp Liq) 30 ml Q6H PRN PO 04/07/17 15:15 (Habitrol 21 Mg Patch.24 Hr) 1 patch DAILY PRN T-DERMAL 04/07/17 15:15 Miscellaneous Information 1 DAILY T-DERMAL 04/08/17 09:00 (Zovirax) 400 mg DAILY PO 04/08/17 09:00 04/09/17 13:21 (Lipitor) 80 mg DAILY PO 04/08/17 09:00 04/09/17 13:21 (Decadron) 12 mg Fr@0900 PO 04/12/17 09:00 (Neurontin) 300 mg DAILY PO 04/08/17 09:00 04/09/17 13:21 (Lopressor) 12.5 mg BID PO 04/07/17 21:00 04/08/17 21:52 Patient Own Medication PT OWN MED: TRADJE... DAILY PO 04/08/17 09:00 Future Hold (Flomax) 0.4 mg HS PO 04/07/17 21:00 04/08/17 21:53 (Heparin Inj) 5,000 units Q12HR SQ 04/07/17 21:00 04/09/17 13:23 (NovoLOG SUPPLEMENTAL SCALE) 1 ACHS SLIDING SCALE SQ 04/07/17 21:00 (D50w (Vial) Inj) 50 ml UNSCH PRN IV PUSH 04/07/17 17:30 (Glucagon Inj) 1 mg UNSCH PRN OTHER 04/07/17 17:30 Patient Own Medication PT OWN MED: THALO... DAILY PO 04/08/17 09:00 Future Hold Sodium Chloride 1,000 ml @ 0 mls/hr Q0M PRN OTHER 04/08/17 11:01 04/09/17 12:10 (Heparin Inj) 8,000 units UNSCH PRN IV FLUSH 04/08/17 11:15 Sodium Chloride 1,000 ml @ 200 mls/hr Q5H PRN IV 04/08/17 11:01 Sodium Chloride 1,000 ml @ 0 mls/hr Q0M PRN OTHER 04/08/17 11:01 (Mannitol Inj) 12.5 gm UNSCH PRN IV 04/08/17 11:15 Albumin Human 100 ml @ 60 mls/hr UNSCH PRN IV 04/08/17 11:15 04/09/17 09:56 (NS Flush) 5 ml UNSCH PRN IV FLUSH 04/08/17 11:15 (Heparin Inj) UNSCH PRN .XX 04/08/17 11:15 04/09/17 12:10 (Gentamicin (Dialysis) Inj) 20 mg UNSCH PRN OTHER 04/08/17 11:15 04/09/17 12:10 (Zofran Inj) 4 mg UNSCH PRN IV PUSH 04/08/17 11:15 (Tylenol) 650 mg UNSCH PRN PO 04/08/17 11:15 (Nitrostat Sl) 0.4 mg UNSCH PRN SL 04/08/17 11:15 (Catapres) 0.1 mg UNSCH PRN PO 04/08/17 11:15 (Epogen Inj) 10,000 units UNSCH PRN IV PUSH 04/08/17 11:15 (Gelfoam 12 Mm/7 Mm Top) 1 foam UNSCH PRN TOP 04/08/17 11:15 Vancomycin HCl 1000 mg/Sodium Chloride 250 ml @ 250 mls/hr WITH DIALYSIS IV 04/09/17 12:00 04/13/17 11:59 04/09/17 11:10 (Protonix) 20 mg DAILY PO 04/10/17 09:00 (Haldol) 0.5 mg BID PO 04/09/17 21:00 (Melatonin) 5 mg HS PRN PO 04/09/17 21:00 (Haldol Inj) 0.5 mg Q8H PRN IM 04/09/17 13:00 . Family History Father at age 87 from lymphoma Mother at age 86 from Alzheimer dementia . Substance Use Tobacco: Non-smoker Alcohol: No hx of abuse Prescription med abuse: No hx of abuse Illicits: No known use of illicits . Psychosocial History Originally from [place], [place]. Has lived in [place] about 30 years. College educated. Worked as an commercial accountant. No history. x 7 years Three children: Jerardo lives locally and has been the primary caregiver. Preston lives locally and has been less involved. Landon lives in [place] and has not seen his father for many years. . Spiritual/Cultural Factors Roman Catholic background. Believes in God. . Living Will: Never completed Health Care Surrogate: Never completed Durable Power of Conference Reservationist: Never completed Date completed: No one is able to find an advance directive. . Health Care Surrogate(s): No written designation of health care surrogate available. . Documented care wishes: No written documentation of health care preferences / wishes available. . Today's verbally stated goals: Patient is confused and has little insight into his illness at this time. He tells me he has many treatment options remaining for his multiple myeloma and plans to pursue them. . Family/friends goals: Son says patient has been increasingly confused. Patient goes back and forth regarding aggressive goals vs hospice and now does not seem to understand there are really no more aggressive options. Son believes strongly that it is in the patient's best interest to forego further aggressive care including hemodialysis , transition to "comfort measures only," and enroll with hospice. . Ethical and Legal Issues I find the patient incapacitated to make his own health care decisions. He does not have insight into his own medical condition. It is unclear if he will regain capacity. As we have no written designation of health care surrogate, and the patient is legally , healthcare proxy decision-making would fall to the patient's 3 sons. The patient's son-- Jerardo -- has been making most of the medical decisions to date as he has been the primary caregiver. I have placed calls to the 2 other sons to see if they agree to yield to Jerardo as the health care decision-maker. ,. Physical Exam Vital Signs Date Time Temp Pulse Resp B/P (MAP) Pulse Ox O2 Delivery O2 Flow Rate FiO2 04/09/17 06:08 97.9 91 17 101/63 (76) 97 04/08/17 18:00 97.7 94 18 102/64 (77) 95 . 04/09/17 04/10/17 19:00 07:00 Intake Total 120 ml Output Total 700 ml Balance -580 ml Intake Oral 120 ml Hemodialysis 700 ml . Exam CONSTITUTIONAL/GENERAL: This is an adequately nourished patient, in no apparent distress. Intermittently confused with some cognitive slowing. TUBES/LINES/DRAINS: Dialysis catheter left neck SKIN: No jaundice, rashes, or lesions. No wounds seen anteriorly. Skin temperature appropriate. Not diaphoretic. HEAD: Atraumatic. Normocephalic. EYES: Pupils equal and round and reactive. Extraocular motions intact. No scleral icterus. No injection or drainage. Fundi not examined. ENT: Hearing grossly normal. Nose without bleeding or purulent drainage. Throat without visible erythema, exudates, masses, or lesions. NECK: Trachea midline. Supple, nontender. No palpable thyroid enlargement or nodularity. CARDIOVASCULAR: Regular rate and rhythm without murmurs, gallops, or rubs. No JVD. Peripheral pulses symmetric. RESPIRATORY/CHEST: Symmetric, unlabored respirations. Clear to auscultation. Breath sounds equal bilaterally. No wheezes, rales, or rhonchi. Occasional cough. GASTROINTESTINAL: Abdomen soft, non-tender, nondistended. No hepato-splenomegaly , or palpable masses. No guarding. Bowel sounds present. GENITOURINARY: Without palpable bladder distension. MUSCULOSKELETAL: Extremities without clubbing, cyanosis, or edema. No joint tenderness or effusion noted. No calf tenderness. No mottling. LYMPHATICS: No palpable cervical or supraclavicular adenopathy. NEUROLOGICAL: Awake and alert. Motor and sensory grossly within normal limits. Follows commands. Intermittently confused. Cognitively slow. Moves all extremities. PSYCHIATRIC: No obvious anxiety/depression. No apparent hallucinations or other psychotic thought process. . Diagnostic Tests Laboratory Laboratory Tests Test 04/07/17 00:50 04/07/17 01:40 04/07/17 06:05 04/08/17 05:22 Prothrombin Time 12.6 SEC (9.8-11.6) Prothromb Time International Ratio 1.2 RATIO Activated Partial Thromboplast Time 21.9 SEC (24.3-30.1) Blood Urea Nitrogen 12 MG/DL (7-18) 21 MG/DL (7-18) Creatinine 3.12 MG/DL (0.60-1.30) 4.62 MG/DL (0.60-1.30) Random Glucose 101 MG/DL (74-106) 96 MG/DL (74-106) Total Protein 9.8 GM/DL (6.4-8.2) 8.8 GM/DL (6.4-8.2) Albumin 2.5 GM/DL (3.4-5.0) 2.2 GM/DL (3.4-5.0) Calcium Level 8.3 MG/DL (8.5-10.1) 8.3 MG/DL (8.5-10.1) Alkaline Phosphatase 132 U/L (45-117) 109 U/L (45-117) Aspartate Amino Transf (AST/SGOT) 44 U/L (15-37) 23 U/L (15-37) Alanine Aminotransferase (ALT/SGPT) 18 U/L (12-78) 14 U/L (12-78) Total Bilirubin 0.8 MG/DL (0.2-1.0) 0.7 MG/DL (0.2-1.0) Sodium Level 137 MEQ/L (136-145) 137 MEQ/L (136-145) Potassium Level 3.3 MEQ/L (3.5-5.1) 3.4 MEQ/L (3.5-5.1) Chloride Level 102 MEQ/L (98-107) 104 MEQ/L (98-107) Carbon Dioxide Level 27.2 MEQ/L (21.0-32.0) 26.1 MEQ/L (21.0-32.0) Anion Gap 8 MEQ/L (5-15) 7 MEQ/L (5-15) Estimat Glomerular Filtration Rate 20 ML/MIN (>89) 13 ML/MIN (>89) Salicylates Level LESS THAN 1.7 MG/DL Acetaminophen Level LESS THAN 2.0 MCG/ML Ethyl Alcohol Level LESS THAN 3 MG/DL (0-5) White Blood Count 11.1 TH/MM3 (4.0-11.0) 5.4 TH/MM3 (4.0-11.0) Red Blood Count 3.75 MIL/MM3 (4.50-5.90) 3.63 MIL/MM3 (4.50-5.90) Hemoglobin 11.5 GM/DL (13.0-17.0) 11.2 GM/DL (13.0-17.0) Hematocrit 34.1 % (39.0-51.0) 33.1 % (39.0-51.0) Mean Corpuscular Volume 91.0 FL (80.0-100.0) 91.2 FL (80.0-100.0) Mean Corpuscular Hemoglobin 30.6 PG (27.0-34.0) 30.9 PG (27.0-34.0) Mean Corpuscular Hemoglobin Concent 33.6 % (32.0-36.0) 33.9 % (32.0-36.0) Red Cell Distribution Width 16.9 % (11.6-17.2) 16.9 % (11.6-17.2) Platelet Count 120 TH/MM3 (150-450) 95 TH/MM3 (150-450) Mean Platelet Volume 9.1 FL (7.0-11.0) 9.0 FL (7.0-11.0) Neutrophils (%) (Auto) 79.3 % (16.0-70.0) 65.5 % (16.0-70.0) Lymphocytes (%) (Auto) 8.1 % (9.0-44.0) 16.2 % (9.0-44.0) Monocytes (%) (Auto) 12.4 % (0.0-8.0) 17.8 % (0.0-8.0) Eosinophils (%) (Auto) 0.1 % (0.0-4.0) 0.4 % (0.0-4.0) Basophils (%) (Auto) 0.1 % (0.0-2.0) 0.1 % (0.0-2.0) Neutrophils # (Auto) 8.8 TH/MM3 (1.8-7.7) 3.5 TH/MM3 (1.8-7.7) Lymphocytes # (Auto) 0.9 TH/MM3 (1.0-4.8) 0.9 TH/MM3 (1.0-4.8) Monocytes # (Auto) 1.4 TH/MM3 (0-0.9) 1.0 TH/MM3 (0-0.9) Eosinophils # (Auto) 0.0 TH/MM3 (0-0.4) 0.0 TH/MM3 (0-0.4) Basophils # (Auto) 0.0 TH/MM3 (0-0.2) 0.0 TH/MM3 (0-0.2) CBC Comment AUTO DIFF AUTO DIFF Differential Total Cells Counted 100 100 Neutrophils % (Manual) 82 % (16-70) 55 % (16-70) Band Neutrophils % 8 % (0-6) 21 % (0-6) Lymphocytes % 2 % (9-44) 6 % (9-44) Monocytes % 6 % (0-8) 14 % (0-8) Neutrophils # (Manual) 10.2 TH/MM3 (1.8-7.7) 4.3 TH/MM3 (1.8-7.7) Myelocytes 2 % (0-0) 1 % (0-0) Nucleated Red Blood Cells 1 /100 WBC (0-0) Differential Comment FINAL DIFF MANUAL FINAL DIFF MANUAL Platelet Estimate LOW (NORMAL) LOW (NORMAL) Platelet Morphology Comment NORMAL (NORMAL) NORMAL (NORMAL) Urine Color YELLOW (YELLW/STRAW) Urine Turbidity HAZY (CLEAR) Urine pH 6.0 (5.0-8.5) Urine Specific Martin 1.024 (1.002-1.035) Urine Protein GREATER THAN 600 mg/dL Urine Glucose (UA) NEG mg/dL (NEG) Urine Ketones TRACE mg/dL (NEG) Urine Occult Blood MOD (NEG) Urine Nitrite NEG (NEG) Urine Bilirubin NEG (NEG) Urine Urobilinogen 2.0 MG/DL (LESS THAN Urine Leukocyte Esterase TRACE (NEG) Urine RBC 3 /hpf (0-3) Urine WBC 9 /hpf (0-5) Urine Squamous Epithelial Cells 14 /hpf (0-5) Urine Amorphous Sediment FEW Urine Bacteria FEW /hpf (NONE) Urine Hyaline Casts 1 /lpf (RARE) Urine Mucus FEW /lpf (OCC) Microscopic Urinalysis Comment CULTURE INDICATED Urine Opiates Screen NEG (NEG) Urine Barbiturates Screen NEG (NEG) Urine Amphetamines Screen NEG (NEG) Urine Benzodiazepines Screen POS (NEG) Urine Cocaine Screen NEG (NEG) Urine Cannabinoids Screen NEG (NEG) Metamyelocytes 2 % (0-1) Promyelocytes 1 % (0-0) Phosphorus Level 2.5 MG/DL (2.5-4.9) Hemoglobin A1c 5.9 % (4.3-6.0) Triglycerides Level 212 MG/DL (42-150) Cholesterol Level 75 MG/DL (120-200) LDL Cholesterol 1 MG/DL (0-99) HDL Cholesterol 31.9 MG/DL (40.0-60.0) Cholesterol/HDL Ratio 2.35 RATIO Thyroid Stimulating Hormone 3rd Gen 1.700 uIU/ML (0.358-3.740) Test 04/09/17 09:30 04/09/17 16:28 Blood Urea Nitrogen 18 MG/DL (7-18) Creatinine 4.05 MG/DL (0.60-1.30) Random Glucose 94 MG/DL (74-106) Calcium Level 10.0 MG/DL (8.5-10.1) Magnesium Level 1.9 MG/DL (1.5-2.5) Sodium Level 139 MEQ/L (136-145) Potassium Level 4.3 MEQ/L (3.5-5.1) Chloride Level 103 MEQ/L (98-107) Carbon Dioxide Level 30.0 MEQ/L (21.0-32.0) Anion Gap 6 MEQ/L (5-15) Estimat Glomerular Filtration Rate 15 ML/MIN (>89) . Result Diagram: 04/08/1722 04/09/17 0930 Microbiology Microbiology Date/Time Source Procedure Growth Status 04/07/17 06:05 Urine Clean Catch Urine Culture - Final NO GROWTH IN 48 HOURS. Complete Patient/Family Conference Present at Family Conference: Son-- Jerardo . Family Conference Time (mins): 30 Family Conference Location: Telephone Issues Discussed: * Palliative care role, purpose, approach * Additional medical, psychosocial, and spiritual history * Patients general health, functional status, and cognitive changes in the months leading up to the current hospitalization * Family understanding of the current medical problems * Family understanding of prognosis * Patients goals of care as best understood from conversations and/or values * Current medical treatment options and benefits/burdens of those options * Likely scenarios comparing ongoing aggressive care with a transition to comfort measures only * Questions answered to the best of my ability . Assessment and Plan Disease Oriented Problem List: (1) Myeloma Comment: End stage. Has been through multiple treatment modalities including bone marrow transplant. Heme / onc (Dr. Mayes) does not feel he is a candidate for further cancer directed treatments. . . (2) Anemia Comment: Probably myeloma related. . (3) Thrombocytopenia Comment: Probably secondary to the myeloma. . (4) ESRD (end stage renal disease) Comment: On hemodialysis. . (5) Recurrent deep vein thrombosis (DVT) (6) Hypoalbuminemia (7) Delirium due to another medical condition (8) Adjustment disorder with depressed mood Symptom Scale: (1) Neuropathic pain 0-10 Scale: Unable to quantify Comment: Mostly inovlves lower extremities. [place] to be chemo induced. Patient reports it is adequately controlled at this time. . (2) Confusion 0-10 Scale: Unable to quantify Comment: . (3) Depression 0-10 Scale: Unable to quantify Comment: Probably secondary to delirium from disease, medications. Also exacerbated by depression and adjustment disorder. Pertinent Non-Medical Issues Psychosocial: x 7 years. 3 sons -- jerardo is most involved. Preston also lives locally but is peripherally involved. Landon lives in [place], [place] and has not seen his father for years. Spiritual: Chart indicates he comes from a Roman Catholic tradition. He believes in God. Legal: No known advance directive. Since he is legally , health care proxy would fall to his three adult children. Ethical issues impacting care: No known ethical issues at this time. . Important Contacts Blaine Azul (son) [phone] and [phone] Jerardo is the primary caregiver. Preston Azul [phone] (also lives locally, but has been less involved in patient's care) Landon Azul (1/2 brother of Jerardo and Preston -- lives in [place] and has not seen his father for years) [phone] . Prognosis Patient has end stage Multiple Myeloma. He has had frequent hospitalizations, multiple pathologic fractures, and is dialysis dependent. His oncologist does not consider him a candidate for further aggressive disease directed treatments. Hospice has been recommended. In my clinical opinion, the patient has a terminal condition. . Code Status: Full Code Plan == Code Status : Code status will remain FULL CODE until legal decision maker( s) are clear. == Decision making: Patient is frequently confused and has little insight at this time into his disease. I believe he is incapacitated to make his own health care decisions. As there is no known designated health care surrogate and there is no legal spouse, proxy decision making would fall to his three sons. The son he lives with -- Omkar -- has been making most of the health decisions with his father. I have placed calls to the other two sons to see if they want to be part of all decisions or if they want to yield to Jerardo who is happy to do assume this role. == Goals of medical treatment: Patient is confused and cannot provide his own coherent goals. Son, Jerardo, believes that it would be in the patient's best interest to forego further aggressive care, stop dialysis, enroll with hospice, and transition to comfort measures only. We will see if the other sons want to weigh in on this. == Symptoms: * Neuropathic pain: appears to be adequately controlled on the gabapentin. Should he need an opiate, would recommend low dose methadone (e.g. 2.5 mg po/sl q 6 hours prn pain/sob) as methadone does not require kidneys for metabolism. * Confusion: As noted above, this is probably a medical delirium. Agree with the haloperidol. No further recommendations at this time. * Depression: Might benefit from an anti-depressant. Will yield to psych in this regard. == Palliative care has left message with the two sons we have not spoken to in order to clarify decision maker. == If other sons agree with Jerardo, the plan will be... * Change code status to DNR * Hospice consult * Discharge to [facility] in [place] * Discontinue dialysis . Thank you for the opportunity to participate in the care of Mr. Azul. . Attestation To help prompt me to consider important information that might be impacting today's encounter and assessment, information from prior notes written by myself or my colleagues may have been "brought forward" into today's note. My signature on this note, however, is an attestation that I personally performed the exam, history, and/or decision-making noted today, and, unless otherwise indicated, the interactions with patient, family, and staff as well as the review of records all occurred today. I also attest that the listed assessment and stated plan reflect my best clinical judgment today based on the combination of historical information, prior notes, and today's exam/ interactions. When time spent is documented, it refers only to time spent today by the signer, or if indicated, combined time spent today by collaborating physician/nurse practitioner. . Jed Randolph MD Apr 09, 2017 17:07
[2017-04-09 17:29] LABS: BANDS 9 % (0-6); LYMPHOCYTES 13 % (9-44); METAMYELOCYTES 2 % (0-1); MONOCYTES 9 % (0-8); MYELOCYTES 2 % (0-0); POLYS (SEG NEUTROPHILS) 65 % (16-70)
[2017-04-09 18:00] VITALS: BP 110/73; PULSE 94; RESP 18; TEMP 98.6; O2SAT 98
[2017-04-09] MEDS: HALOPERIDOL 0.5 MG TAB PO SCH (20:55)
[2017-04-09] MEDS: TAMSULOSIN HCL 0.4 MG CAP PO SCH (20:55)
[2017-04-09] MEDS ORDERED: MELATONIN 5 MG TAB PO PRN (21:00)
[2017-04-10 06:06] VITALS: BP 89/59; PULSE 97; RESP 18; TEMP 98.1; O2SAT 91
[2017-04-10 07:40] VITALS: BP 94/62; PULSE 96; RESP 18; TEMP 98.1; O2SAT 96
[2017-04-10] MEDS: INSULIN ASPART SUPPLEMENTAL SCALE SQ SCH ×4 (08:00→20:06)
[2017-04-10] MEDS: HALOPERIDOL 0.5 MG TAB PO SCH ×2 (08:23→20:03)
[2017-04-10] MEDS: PANTOPRAZOLE SOD 20 MG DELAYED RELEASE TAB PO SCH (08:23)
[2017-04-10] MEDS: ATORVASTATIN 80 MG TAB PO SCH (08:24)
[2017-04-10] MEDS: GABAPENTIN 300 MG CAP PO SCH (08:24)
[2017-04-10] MEDS: ACYCLOVIR 200 MG CAP PO SCH (08:27)
[2017-04-10] MEDS: METOPROLOL TARTRATE 25 MG TAB PO SCH ×2 (08:27→20:03)
[2017-04-10] MEDS: REMOVE OLD PATCH T-DERMAL SCH (09:00)
[2017-04-10] MEDS: HEPARIN SODIUM - SQ 10,000 UNITS/ML VIAL SQ SCH (09:00)
--- NOTE | 2017-04-10 09:47 | HHI.PR ---
Subjective Remarks Patient awake and watching TV able to provide his name correctly, reports feeling, "pretty well." Offers no complaints Objective Vitals Vital Signs Date Time Temp Pulse Resp B/P (MAP) Pulse Ox O2 Delivery O2 Flow Rate FiO2 04/10/17 07:40 98.1 96 18 94/62 (73) 96 04/10/17 06:06 98.1 97 18 89/59 (69) 91 04/09/17 18:00 98.6 94 18 110/73 (85) 98 Result Diagram: 04/09/17 1628 04/09/17 0930 Other Results Laboratory Tests Test 04/08/17 05:22 04/09/17 09:30 04/09/17 16:28 White Blood Count 5.4 TH/MM3 3.9 TH/MM3 Red Blood Count 3.63 MIL/MM3 3.47 MIL/MM3 Hemoglobin 11.2 GM/DL 10.4 GM/DL Hematocrit 33.1 % 31.3 % Mean Corpuscular Volume 91.2 FL 90.2 FL Mean Corpuscular Hemoglobin 30.9 PG 30.0 PG Mean Corpuscular Hemoglobin Concent 33.9 % 33.2 % Red Cell Distribution Width 16.9 % 16.6 % Platelet Count 95 TH/MM3 88 TH/MM3 Mean Platelet Volume 9.0 FL 8.7 FL Neutrophils (%) (Auto) 65.5 % 68.4 % Lymphocytes (%) (Auto) 16.2 % 17.1 % Monocytes (%) (Auto) 17.8 % 13.5 % Eosinophils (%) (Auto) 0.4 % 0.7 % Basophils (%) (Auto) 0.1 % 0.3 % Neutrophils # (Auto) 3.5 TH/MM3 2.7 TH/MM3 Lymphocytes # (Auto) 0.9 TH/MM3 0.7 TH/MM3 Monocytes # (Auto) 1.0 TH/MM3 0.5 TH/MM3 Eosinophils # (Auto) 0.0 TH/MM3 0.0 TH/MM3 Basophils # (Auto) 0.0 TH/MM3 0.0 TH/MM3 CBC Comment AUTO DIFF AUTO DIFF Differential Total Cells Counted 100 100 Neutrophils % (Manual) 55 % 65 % Band Neutrophils % 21 % 9 % Lymphocytes % 6 % 13 % Monocytes % 14 % 9 % Neutrophils # (Manual) 4.3 TH/MM3 3.0 TH/MM3 Metamyelocytes 2 % 2 % Myelocytes 1 % 2 % Promyelocytes 1 % Differential Comment FINAL DIFF MANUAL FINAL DIFF MANUAL Platelet Estimate LOW LOW Platelet Morphology Comment NORMAL NORMAL Blood Urea Nitrogen 21 MG/DL 18 MG/DL Creatinine 4.62 MG/DL 4.05 MG/DL Random Glucose 96 MG/DL 94 MG/DL Total Protein 8.8 GM/DL Albumin 2.2 GM/DL Calcium Level 8.3 MG/DL 10.0 MG/DL Phosphorus Level 2.5 MG/DL Alkaline Phosphatase 109 U/L Aspartate Amino Transf (AST/SGOT) 23 U/L Alanine Aminotransferase (ALT/SGPT) 14 U/L Total Bilirubin 0.7 MG/DL Sodium Level 137 MEQ/L 139 MEQ/L Potassium Level 3.4 MEQ/L 4.3 MEQ/L Chloride Level 104 MEQ/L 103 MEQ/L Carbon Dioxide Level 26.1 MEQ/L 30.0 MEQ/L Anion Gap 7 MEQ/L 6 MEQ/L Estimat Glomerular Filtration Rate 13 ML/MIN 15 ML/MIN Hemoglobin A1c 5.9 % Triglycerides Level 212 MG/DL Cholesterol Level 75 MG/DL LDL Cholesterol 1 MG/DL HDL Cholesterol 31.9 MG/DL Cholesterol/HDL Ratio 2.35 RATIO Thyroid Stimulating Hormone 3rd Gen 1.700 uIU/ML Magnesium Level 1.9 MG/DL Atypical Lymphocytes % Ammonia 28 MCMOL/L Vitamin B12 Level GREATER THAN 2000 PG/ML Objective Remarks General: NAD, Awake and alert Chest: CTA Cardiac: Regular Abd: +BS, soft ND/NT Ext: No edema A/P Problem List: (1) Depression ICD Codes: F32.9 - Major depressive disorder, single episode, unspecified Plan: - Pt is a 62 y/o male with Multiple Myeloma, chronic renal failure on HD, and who was recently hospitalized at [facility] from 03/27/17 to 04/05/17 with Methicillin resistant Staph Epidermidis bacteremia and had PermCath removed on 03/30/17. According to the discharge summary from [facility] he was found to have an acute metabolic encephalopathy secondary to sepsis and possible uremia and an infected PermCath with Methicillin resistant Staph Epidermidis and was treated with Vancomycin 1 gram post-dialysis on [id number], to be completed on . The pt states that he only does dialysis two days per week. He states that he did receive his normal dialysis on 04/06/17. Prior to his hospitalization at [facility] the pts Coumadin, which he was taking for recurrent DVTs, was stopped due to hematuria and was following outpt with Urology. Depression [place] Act for suicidal ideation -[place] [facility] Act for reported suicidal ideation. Pt states that after his prolonged hospitalization he wasn't sure he wanted to continue with things and was trying to decide about Hospice. He states that his son thought that he was being suicidal and called the police. Pt denies any suicidal ideation at the time of my evaluation. - Psychiatry is following - Depression management per Psychiatry - Discussed the case with Dr. Waite today who has spoken with the pts family and pt reported told his son that he was going to intentionally overdose with pills and wanted his son at the bedside when he did it and this was the reason for the Holly Act. - Pt seems to have some intermittent confusion but on 04/09/17 at the time of examination pt was AAOx3 ?delirium vs. underlying dementia vs. other - Urine culture with no growth in 48 hours - Thyroid studies are WNL - Palliative care consultation 04/09/17 to help the pt and family establish goals of care. Pt has expressed wishes to be on Hospice but this needs to be explored further. - per Palliative consult note -> If other sons agree with [place], the plan will be... Change code status to DNR Hospice consult Discharge to [facility] in [place] Discontinue dialysis -await other sons ESRD on HD Recent Methicillin resistant Staph Epidermidis bacteremia and had PermCath removed on 03/30/17 - Nephrology is following - Pt was previously being treated with Vancomycin 1 gram post-dialysis on Sat-Sat, to be completed on 04/13/16 according to discharge summary from [facility]. - Pt receiving dialysis, 04/09/17 - Monitor labs - Pt also reportedly receives Procrit three times per week according to the previous discharge summary Multiple Myeloma - Diagnosed in 2010 and had multiple pathologic fractures s/p radiation therapy and chemo and underwent autologous bone marrow transplant in 2013 - He follows with Dr. Mayes - Cont. on Thalomid 50 Mg PO DAILY - Dr. Magaña spoke with Dr. Mayes on the phone on 04/09/17 about the pts status with his MM, she reports that the pt has progressive MM and at this point is not a candidate for further treatment. She did states that she felt Hospice would be appropriate. Recurrent DVTs Recent hematuria - Pt had been on Coumadin. 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 Assessment and plan formulated with Majo Vasquez PA-C. I agree with the above. Majo Vasquez Apr 10, 2017 09:47 Bobby Magaña DO Apr 11, 2017 22:09
--- NOTE | 2017-04-10 10:31 | HHI.HCSW ---
Snorkelling Instructor Visit Significant Family/Friend Left message with son, Landon, to inquire if he would like to be involved with medical decision making for Mr. Azul. Unable to reach. Left message requesting call back. Nery Garg MSW, [employer]IVESTOCK SLAUGHTERER Apr 10, 2017 10:31
--- NOTE | 2017-04-10 11:01 | HHI.NPPN ---
Subjective General Problems: Anemia Renal Failure: Chronic, End Stage Renal Disease Interval History He is still preston acted. Appears competent and coherent today. There is discussion about possible hospice transfer and/or court proceedings tomorrow. (Nadia Aguilar) Review of Systems General Constitutional: Fatigue (Nadia Aguilar) Objective Data Data Vital Signs Date Time Temp Pulse Resp B/P (MAP) Pulse Ox O2 Delivery O2 Flow Rate FiO2 04/10/17 07:40 98.1 96 18 94/62 (73) 96 04/10/17 06:06 98.1 97 18 89/59 (69) 91 04/09/17 18:00 98.6 94 18 110/73 (85) 98 (Nadia Aguilar) -: 04/09/17 1628 04/09/17 0930 Tubes & Lines: Vas-Cath (Nadia Aguilar) Physical Exam General Appearance: Well Developed, Comfortable, Malnourished (Nadia Aguilar) Eyes Eye Exam: Pupils Equal (Nadia Aguilar) Ears & Nose Ears & Nose Exam: Tympanic Membranes Normal (Nadia Aguilar) Neck Neck Exam: Neck Supple, Trachea Midline (Nadia Aguilar) Pulmonary Resp Exam: Clear Bilaterally, Breath Sounds Equal (Nadia Aguilar) Cardiology CV Exam: Regular (Nadia Aguilar) Gastrointestinal/Abdomen GI Exam: Soft, Non-Tender, Bowel Sounds Present (Nadia Aguilar) Musculoskeletal MS Exam: Joints Intact, Atrophy (Nadia Aguilar) Integumentary Skin Exam: Clear, Warm, Dry, Intact (Nadia Aguilar) Extremeties Extremities Exam: No Edema, Pedal Pulses Palpable (Nadia Aguilar) Neurologic Neuro Exam: Alert (Nadia Aguilar) Psychiatric Psych Remarks Difficult to evaluate (Nadia Aguilar) Assessment/Plan Discussed Condition With: Patient Assessment Summary: Anemia of CKD, Hypertension, End Stage Renal Disease Electrolyte Assessment: Hypokalemia Problem List: (1) ESRD (end stage renal disease) ICD Codes: N18.6 - End stage renal disease Plan: Dialysis will be TTS, due tomorrow Monitor electrolytes and fluid status. Avoid Gadolinium. High protein diet ordered. Supplements added. Fluid restriction to 1500 ml/day. (2) Myeloma ICD Codes: C90.00 - Multiple myeloma not having achieved remission Plan: Has been on chemotherapy. Details of his disease and prognosis are not known to me at this time. Pt reportedly wanted hospice services at admission, possible transfer tomorrow. Palliative following. Now is preston acted. (3) Sepsis ICD Codes: A41.9 - Sepsis, unspecified organism Plan: Apparently diagnosed with MRSA sepsis recently. PermCath was removed, and now he has a Vascath. Has been on Vancomycin with dialysis. Stop date is 04/13/17 (4) Anemia ICD Codes: D64.9 - Anemia, unspecified Plan: Hemoglobin is acceptable. (Nadia Aguilar) Plan patient was seen and examined. Agree with above assessment and plan. Family apparently is considering hospice (Dawit Huber MD) Nadia Aguilar Apr 10, 2017 11:01 Dawit Huber MD Apr 10, 2017 17:49
--- NOTE | 2017-04-10 11:55 | HHI.PYPN ---
Subjective Remarks Patient seen and examined with nurse. Chart reviewed. Case discussed with nursing staff. On my exam, patient remains confused: he is oriented to person and month only. He is unable to complete Vigilance A testing. He denies AVH. Mood is "ok." Denies SI/HI. He is more alert today. Denies side effects from medications. No physical complaints. Review of Systems ROS Limitations: Poor Historian Except as stated in HPI: all other systems reviewed are Neg Mental Status Examination Appearance: Disheveled Consciousness: Alert Orientation: Person, Date/Time (month) Motor Activity: Other (a little less psychomotor slowed.) Speech: Hesitant, Slow Language: Adequate Attention and Concentration: Other (remains impaired) Mood: Other ("ok") Affect: Blunt Thought Process & Associations: Other (slowed) Thought Content: Appropriate Hallucination Type: None Delusion Type: None Suicidal Ideation: No Suicidal Plan: No Suicidal Intention: No Homicidal Ideation: No Homicidal Plan: No Homicidal Intention: No Insight: Poor Judgment: Poor Results Labs Item Value Date Time White Blood Count 3.9 TH/MM3 L 04/09/17 1628 Hemoglobin 10.4 GM/DL L 04/09/17 1628 Platelet Count 88 TH/MM3 L 04/09/17 1628 Ammonia 28 MCMOL/L 04/09/17 1628 Vitamin B12 Level GREATER THAN 2000 PG/ML H 04/09/17 1628 Thyroid Stimulating Hormone 3rd Gen 1.700 uIU/ML 04/08/17 0522 Labs reviewed. Leukopenia noted. Anemia stable. NH3, B12, TSH wnl. Thiamine , RPR, HIV pending. Head CT not yet done. Vitals/IOs Vital Signs Date Time Temp Pulse Resp B/P (MAP) Pulse Ox O2 Delivery O2 Flow Rate FiO2 04/10/17 07:40 98.1 96 18 94/62 (73) 96 04/07/17 12:02 Room Air Intake and Output 04/10/17 04/10/17 04/11/17 08:00 16:00 00:00 Intake Total 240 ml Balance 240 ml Assessment & Plan Problem List: (1) Adjustment disorder with depressed mood ICD Codes: F43.21 - Adjustment disorder with depressed mood (2) Delirium due to another medical condition ICD Codes: F05 - Delirium due to known physiological condition Assessment & Plan Continue with Haldol as ordered for delirium. Could consider titrating this agent, but patient has only received 2 doses so far. Patient seems more alert today but remains encephalopathic. AMS workup so far unrevealing, although there are some outstanding labs and we will get the head CT today. Hospitalist , nephrology, and palliative medicine big machine consultant input noted and appreciated. Continue to monitor on medical psychiatric unit. Continue other medications and care as ordered. Justification for Cont. Inpt. Impairment in self-care. High risk for decompensation in less restrictive environment. Discharge Planning To be determined. Request HC Surrog/Guard Advoc?: Yes Dl Serrano MD Apr 10, 2017 11:55
--- NOTE | 2017-04-10 15:18 | RADRPT ---
EXAM DATE/TIME: 04/10/2017 14:48 [facility] COMPARISON: No previous studies available for comparison. INDICATIONS : Altered mental status with confusion. RADIATION DOSE: 56.35 CTDIvol (mGy) MEDICAL HISTORY : Hypertension. Renal failure, acute. Deep venous thrombosis.Multiple myeloma. SURGICAL HISTORY : AV Shunt. ENCOUNTER: Initial ACUITY: 1 day PAIN SCALE: 4/10 LOCATION: Bilateral cranial TECHNIQUE: Multiple contiguous axial images were obtained of the head. Using automated exposure control and adj ustment of the mA and/or kV according to patient size, radiation dose was kept as low as reasonably a chievable to obtain optimal diagnostic quality images. DICOM format image data is available electro nically for review and comparison. FINDINGS: CEREBRUM: The ventricles are normal for age. No evidence of midline shift, mass lesion, hemorrhage or acute in farction. No extra-axial fluid collections are seen. POSTERIOR FOSSA: The cerebellum and brainstem are intact. The 4th ventricle is midline. The cerebellopontine angle i s unremarkable. EXTRACRANIAL: The visualized portion of the orbits is intact. SKULL: Scattered lucencies are seen in the bony calvarium. This can be seen with multiple myeloma. Correla tion suggested. CONCLUSION: Abnormal calvarium as described above Cranial contents unremarkable. Danie Serrano MD FACR on April 10, 2017 at 15:14 Board Certified Radiologist. This report was verified electronically.
[2017-04-10 16:09] VITALS: BP 93/58; PULSE 94; RESP 22; TEMP 97.7; O2SAT 94
[2017-04-10] MEDS: TAMSULOSIN HCL 0.4 MG CAP PO SCH (20:03)
--- NOTE | 2017-04-10 20:13 | HHI.HCPN ---
Reason for visit a. To assist with evaluation and management of symptoms including: Confusion ; depression; neuropathic pain b. To assist medical decision maker(s) with: better understanding of current medical conditions; weighing benefits/burdens of medical treatment options; making medical treatment decisions. . Subjective/Interval History Patient is sleeping at time of my arrival. He awakens easily. He denies pain, sob. He reports his mood is improving. He denies feeling confused, but still has poor insight into his illness and his capacity to make his own health care decisions remains in doubt. No other complaints. The palliative care team has spoken with all three sons. Landon and Preston are opting out of decision making leaving health care proxy responsibility to son Jerardo, who accepts. . Family/friend interactions The palliative care team has spoken with all three sons. Landon and Preston are opting out of decision making leaving health care proxy responsibility to son Jerardo, who accepts. I have personally notified Dr. Magaña. . Advance Directives Living Will: Never completed Health Care Surrogate: Never completed Durable Power of Painter Interior Finish: Never completed Advance Directive Specifics Date completed: No one is able to find an advance directive. . Health Care Surrogate(s): No written designation of health care surrogate available. . Documented care wishes: No written documentation of health care preferences / wishes available. . Objective Vital Signs Date Time Temp Pulse Resp B/P (MAP) Pulse Ox O2 Delivery O2 Flow Rate FiO2 04/10/17 16:09 97.7 94 22 93/58 (70) 94 04/10/17 07:40 98.1 96 18 94/62 (73) 96 04/10/17 06:06 98.1 97 18 89/59 (69) 91 . Physical Exam CONSTITUTIONAL/GENERAL: This is an adequately nourished patient, in no apparent distress. Intermittently confused with some cognitive slowing. TUBES/LINES/DRAINS: Dialysis catheter left neck SKIN: No jaundice, rashes, or lesions. No wounds seen anteriorly. Skin temperature appropriate. Not diaphoretic. HEAD: Atraumatic. Normocephalic. EYES: Pupils equal and round. Extraocular motions intact. No scleral icterus. No injection or drainage. Fundi not examined. ENT: Hearing grossly normal. Nose without bleeding or purulent drainage. NECK: Trachea midline. Supple, nontender. CARDIOVASCULAR: Regular rate and rhythm without murmurs, gallops, or rubs. No JVD. Peripheral pulses symmetric. RESPIRATORY/CHEST: Symmetric, unlabored respirations. Clear to auscultation. Breath sounds equal bilaterally. No wheezes, rales, or rhonchi. No cough heard today. GASTROINTESTINAL: Abdomen soft, non-tender, nondistended. No hepato-splenomegaly , or palpable masses. No guarding. Bowel sounds present. GENITOURINARY: Not examined. MUSCULOSKELETAL: Extremities without clubbing, cyanosis, or edema. LYMPHATICS: Not examined. NEUROLOGICAL: Awake and alert. Motor and sensory grossly within normal limits. Follows commands. Intermittently confused. Cognitively slow. Moves all extremities. PSYCHIATRIC: No obvious anxiety/depression. No apparent hallucinations or other psychotic thought process. . Diagnostic Tests Laboratory Laboratory Tests Test 04/08/17 05:22 04/09/17 09:30 04/09/17 16:28 White Blood Count 5.4 TH/MM3 (4.0-11.0) 3.9 TH/MM3 (4.0-11.0) Red Blood Count 3.63 MIL/MM3 (4.50-5.90) 3.47 MIL/MM3 (4.50-5.90) Hemoglobin 11.2 GM/DL (13.0-17.0) 10.4 GM/DL (13.0-17.0) Hematocrit 33.1 % (39.0-51.0) 31.3 % (39.0-51.0) Mean Corpuscular Volume 91.2 FL (80.0-100.0) 90.2 FL (80.0-100.0) Mean Corpuscular Hemoglobin 30.9 PG (27.0-34.0) 30.0 PG (27.0-34.0) Mean Corpuscular Hemoglobin Concent 33.9 % (32.0-36.0) 33.2 % (32.0-36.0) Red Cell Distribution Width 16.9 % (11.6-17.2) 16.6 % (11.6-17.2) Platelet Count 95 TH/MM3 (150-450) 88 TH/MM3 (150-450) Mean Platelet Volume 9.0 FL (7.0-11.0) 8.7 FL (7.0-11.0) Neutrophils (%) (Auto) 65.5 % (16.0-70.0) 68.4 % (16.0-70.0) Lymphocytes (%) (Auto) 16.2 % (9.0-44.0) 17.1 % (9.0-44.0) Monocytes (%) (Auto) 17.8 % (0.0-8.0) 13.5 % (0.0-8.0) Eosinophils (%) (Auto) 0.4 % (0.0-4.0) 0.7 % (0.0-4.0) Basophils (%) (Auto) 0.1 % (0.0-2.0) 0.3 % (0.0-2.0) Neutrophils # (Auto) 3.5 TH/MM3 (1.8-7.7) 2.7 TH/MM3 (1.8-7.7) Lymphocytes # (Auto) 0.9 TH/MM3 (1.0-4.8) 0.7 TH/MM3 (1.0-4.8) Monocytes # (Auto) 1.0 TH/MM3 (0-0.9) 0.5 TH/MM3 (0-0.9) Eosinophils # (Auto) 0.0 TH/MM3 (0-0.4) 0.0 TH/MM3 (0-0.4) Basophils # (Auto) 0.0 TH/MM3 (0-0.2) 0.0 TH/MM3 (0-0.2) CBC Comment AUTO DIFF AUTO DIFF Differential Total Cells Counted 100 100 Neutrophils % (Manual) 55 % (16-70) 65 % (16-70) Band Neutrophils % 21 % (0-6) 9 % (0-6) Lymphocytes % 6 % (9-44) 13 % (9-44) Monocytes % 14 % (0-8) 9 % (0-8) Neutrophils # (Manual) 4.3 TH/MM3 (1.8-7.7) 3.0 TH/MM3 (1.8-7.7) Metamyelocytes 2 % (0-1) 2 % (0-1) Myelocytes 1 % (0-0) 2 % (0-0) Promyelocytes 1 % (0-0) Differential Comment FINAL DIFF MANUAL FINAL DIFF MANUAL Platelet Estimate LOW (NORMAL) LOW (NORMAL) Platelet Morphology Comment NORMAL (NORMAL) NORMAL (NORMAL) Blood Urea Nitrogen 21 MG/DL (7-18) 18 MG/DL (7-18) Creatinine 4.62 MG/DL (0.60-1.30) 4.05 MG/DL (0.60-1.30) Random Glucose 96 MG/DL (74-106) 94 MG/DL (74-106) Total Protein 8.8 GM/DL (6.4-8.2) Albumin 2.2 GM/DL (3.4-5.0) Calcium Level 8.3 MG/DL (8.5-10.1) 10.0 MG/DL (8.5-10.1) Phosphorus Level 2.5 MG/DL (2.5-4.9) Alkaline Phosphatase 109 U/L (45-117) Aspartate Amino Transf (AST/SGOT) 23 U/L (15-37) Alanine Aminotransferase (ALT/SGPT) 14 U/L (12-78) Total Bilirubin 0.7 MG/DL (0.2-1.0) Sodium Level 137 MEQ/L (136-145) 139 MEQ/L (136-145) Potassium Level 3.4 MEQ/L (3.5-5.1) 4.3 MEQ/L (3.5-5.1) Chloride Level 104 MEQ/L (98-107) 103 MEQ/L (98-107) Carbon Dioxide Level 26.1 MEQ/L (21.0-32.0) 30.0 MEQ/L (21.0-32.0) Anion Gap 7 MEQ/L (5-15) 6 MEQ/L (5-15) Estimat Glomerular Filtration Rate 13 ML/MIN (>89) 15 ML/MIN (>89) Hemoglobin A1c 5.9 % (4.3-6.0) Triglycerides Level 212 MG/DL (42-150) Cholesterol Level 75 MG/DL (120-200) LDL Cholesterol 1 MG/DL (0-99) HDL Cholesterol 31.9 MG/DL (40.0-60.0) Cholesterol/HDL Ratio 2.35 RATIO Thyroid Stimulating Hormone 3rd Gen 1.700 uIU/ML (0.358-3.740) Magnesium Level 1.9 MG/DL (1.5-2.5) Atypical Lymphocytes % (0-0) Ammonia 28 MCMOL/L (11-32) Vitamin B12 Level GREATER THAN 2000 PG/ML Rapid Plasma Reagin NON-REACTIVE (NON-REACTVE) HIV (1&2) Antibody NEGATIVE (NEGATIVE) . Result Diagram: 04/09/17 1628 04/09/17 0930 Microbiology Microbiology Date/Time Source Procedure Growth Status 04/07/17 06:05 Urine Clean Catch Urine Culture - Final NO GROWTH IN 48 HOURS. Complete . Imaging Last Impressions Head CT 04/09/17 0000 Signed Impressions: Service Date/Time: Monday, April 10, 2017 14:48 - CONCLUSION: Abnormal calvarium as described above Cranial contents unremarkable. Danie Serrano MD FACR . Assessment and Plan Disease Oriented Problem List: (1) Myeloma Comment: End stage. Has been through multiple treatment modalities including bone marrow transplant. Heme / onc (Dr. Mayes) does not feel he is a candidate for further cancer directed treatments. . . (2) Anemia Comment: Probably myeloma related. . (3) Thrombocytopenia Comment: Probably secondary to the myeloma. . (4) ESRD (end stage renal disease) Comment: On hemodialysis. . (5) Recurrent deep vein thrombosis (DVT) (6) Hypoalbuminemia (7) Delirium due to another medical condition (8) Adjustment disorder with depressed mood Symptom Scale: (1) Neuropathic pain 0-10 Scale: Unable to quantify Comment: Mostly inovlves lower extremities. Rawlings to be chemo induced. Patient reports it is adequately controlled at this time. . (2) Confusion 0-10 Scale: Unable to quantify Comment: . (3) Depression 0-10 Scale: Unable to quantify Comment: Probably secondary to delirium from disease, medications. Also exacerbated by depression and adjustment disorder. Pertinent Non-Medical Issues Psychosocial: x 7 years. 3 sons -- jerardo is most involved. Preston also lives locally but is peripherally involved. Landon lives in [place], [place] and has not seen his father for years. Spiritual: Chart indicates he comes from a [employer] tradition. He believes in God. Legal: No known advance directive. Since he is legally , health care proxy would fall to his three adult children. Preston and Landon have opted out leaving Jerardo as the legal proxy. Ethical issues impacting care: No known ethical issues at this time. . Important Contacts Blaine Azul (son and proxy) [phone] and [phone] Jerardo is the primary caregiver. Preston Azul [phone] (also lives locally, but has been less involved in patient's care) Landon Azul (1/2 brother of Lakshmi -- lives in [place] and has not seen his father for years) [phone] . Prognosis Patient has end stage Multiple Myeloma. He has had frequent hospitalizations, multiple pathologic fractures, and is dialysis dependent. His oncologist does not consider him a candidate for further aggressive disease directed treatments. Hospice has been recommended. In my clinical opinion, the patient has a terminal condition. . Code Status: Full Code Plan == Code Status : Full Code at this time . Scheduled for hospice consult visit on 04/11/17 and code status will be revisited. == Decision making: Patient is frequently confused and has little insight at this time into his disease. I believe he is incapacitated to make his own health care decisions. As there is no known designated health care surrogate and there is no legal spouse, proxy decision making would fall to his three sons. Sons Landon and Preston have opted out via telephone conversations. Son , Jerardo, is therefore the legal health care proxy. == Goals of medical treatment: Patient is confused and cannot provide his own coherent goals. Son, Jerardo, believes that it would be in the patient's best interest to forego further aggressive care, stop dialysis, enroll with hospice, and transition to comfort measures only. We will see if the other sons want to weigh in on this. == Symptoms: * Neuropathic pain: appears to be adequately controlled on the gabapentin. Should he need an opiate, would recommend low dose methadone (e.g. 2.5 mg po/sl q 6 hours prn pain/sob) as methadone does not require kidneys for metabolism. * Confusion: As noted above, this is probably a medical delirium. Agree with the haloperidol. No further recommendations at this time. * Depression: Might benefit from an anti-depressant. Will yield to psych in this regard. == Hospice consult has been placed. Proxy cannot meet with hospice until 0900 on 04/11/17. If all agree with prior plan, will likely... * Discharge to [facility] in [place] * Discontinue dialysis . . Attestation To help prompt me to consider important information that might be impacting today's encounter and assessment, information from prior notes written by myself or my colleagues may have been "brought forward" into today's note. My signature on this note, however, is an attestation that I personally performed the exam, history, and/or decision-making noted today, and, unless otherwise indicated, the interactions with patient, family, and staff as well as the review of records all occurred today. I also attest that the listed assessment and stated plan reflect my best clinical judgment today based on the combination of historical information, prior notes, and today's exam/ interactions. When time spent is documented, it refers only to time spent today by the signer, or if indicated, combined time spent today by collaborating physician/nurse practitioner. . Jed Randolph MD Apr 10, 2017 20:13
[2017-04-11 06:02] VITALS: BP 99/63; PULSE 105; RESP 18; TEMP 99; O2SAT 95
[2017-04-11] MEDS: INSULIN ASPART SUPPLEMENTAL SCALE SQ SCH ×2 (08:00→12:00)
[2017-04-11] MEDS: GABAPENTIN 300 MG CAP PO SCH (08:04)
[2017-04-11] MEDS: PANTOPRAZOLE SOD 20 MG DELAYED RELEASE TAB PO SCH (08:04)
[2017-04-11] MEDS: METOPROLOL TARTRATE 25 MG TAB PO SCH (08:05)
[2017-04-11] MEDS: ATORVASTATIN 80 MG TAB PO SCH (08:05)
[2017-04-11] MEDS: ACYCLOVIR 200 MG CAP PO SCH (08:05)
[2017-04-11] MEDS: HALOPERIDOL 0.5 MG TAB PO SCH (08:05)
[2017-04-11] MEDS: REMOVE OLD PATCH T-DERMAL SCH (08:08)
--- NOTE | 2017-04-11 08:31 | HHI.PR ---
Subjective Remarks No new complaints. Objective Vitals Vital Signs Date Time Temp Pulse Resp B/P (MAP) Pulse Ox O2 Delivery O2 Flow Rate FiO2 04/11/17 06:02 99.0 105 18 99/63 (75) 95 04/10/17 16:09 97.7 94 22 93/58 (70) 94 Result Diagram: 04/09/17 1628 04/09/17 0930 Other Results Laboratory Tests Test 04/09/17 09:30 04/09/17 16:28 Blood Urea Nitrogen 18 MG/DL Creatinine 4.05 MG/DL Random Glucose 94 MG/DL Calcium Level 10.0 MG/DL Magnesium Level 1.9 MG/DL Sodium Level 139 MEQ/L Potassium Level 4.3 MEQ/L Chloride Level 103 MEQ/L Carbon Dioxide Level 30.0 MEQ/L Anion Gap 6 MEQ/L Estimat Glomerular Filtration Rate 15 ML/MIN White Blood Count 3.9 TH/MM3 Red Blood Count 3.47 MIL/MM3 Hemoglobin 10.4 GM/DL Hematocrit 31.3 % Mean Corpuscular Volume 90.2 FL Mean Corpuscular Hemoglobin 30.0 PG Mean Corpuscular Hemoglobin Concent 33.2 % Red Cell Distribution Width 16.6 % Platelet Count 88 TH/MM3 Mean Platelet Volume 8.7 FL Neutrophils (%) (Auto) 68.4 % Lymphocytes (%) (Auto) 17.1 % Monocytes (%) (Auto) 13.5 % Eosinophils (%) (Auto) 0.7 % Basophils (%) (Auto) 0.3 % Neutrophils # (Auto) 2.7 TH/MM3 Lymphocytes # (Auto) 0.7 TH/MM3 Monocytes # (Auto) 0.5 TH/MM3 Eosinophils # (Auto) 0.0 TH/MM3 Basophils # (Auto) 0.0 TH/MM3 CBC Comment AUTO DIFF Differential Total Cells Counted 100 Neutrophils % (Manual) 65 % Band Neutrophils % 9 % Lymphocytes % 13 % Monocytes % 9 % Neutrophils # (Manual) 3.0 TH/MM3 Metamyelocytes 2 % Myelocytes 2 % Differential Comment FINAL DIFF MANUAL Atypical Lymphocytes % Platelet Estimate LOW Platelet Morphology Comment NORMAL Ammonia 28 MCMOL/L Vitamin B12 Level GREATER THAN 2000 PG/ML Rapid Plasma Reagin NON-REACTIVE HIV (1&2) Antibody NEGATIVE Imaging Last Impressions Head CT 04/09/17 0000 Signed Impressions: Service Date/Time: Monday, April 10, 2017 14:48 - CONCLUSION: Abnormal calvarium as described above Cranial contents unremarkable. Danie Serrano MD FACR Objective Remarks General: NAD, Awake and alert Chest: CTA Cardiac: Regular Abd: +BS, soft ND/NT Ext: No edema A/P Problem List: (1) Depression ICD Codes: F32.9 - Major depressive disorder, single episode, unspecified Plan: - Pt is a 62 y/o male with Multiple Myeloma, chronic renal failure on HD, and who was recently hospitalized at [facility] from 03/27/17 to 04/05/17 with Methicillin resistant Staph Epidermidis bacteremia and had PermCath removed on 03/30/17. According to the discharge summary from [facility] he was found to have an acute metabolic encephalopathy secondary to sepsis and possible uremia and an infected PermCath with Methicillin resistant Staph Epidermidis and was treated with Vancomycin 1 gram post-dialysis on [id number], to be completed on . The pt states that he only does dialysis two days per week. He states that he did receive his normal dialysis on 04/06/17. Prior to his hospitalization at [facility] the pts Coumadin, which he was taking for recurrent DVTs, was stopped due to hematuria and was following outpt with Urology. Depression Holly Act for suicidal ideation -Pt was admitted to [facility] on 04/07/17 under Holly Act for reported suicidal ideation. Pt states that after his prolonged hospitalization he wasn't sure he wanted to continue with things and was trying to decide about Hospice. He states that his son thought that he was being suicidal and called the police. Pt denies any suicidal ideation at the time of my evaluation. - Psychiatry is following - Depression management per Psychiatry - Discussed the case with Dr. Waite today who has spoken with the pts family and pt reported told his son that he was going to intentionally overdose with pills and wanted his son at the bedside when he did it and this was the reason for the Holly Act. - Pt seems to have some intermittent confusion but on 04/09/17 at the time of examination pt was AAOx3 ?delirium vs. underlying dementia vs. other - Urine culture with no growth in 48 hours - Thyroid studies are WNL - Palliative care consultation 04/09/17 to help the pt and family establish goals of care. Pt has expressed wishes to be on Hospice but this needs to be explored further. - family/palliative making arrangement for hospice - ESRD on HD Recent Methicillin resistant Staph Epidermidis bacteremia and had PermCath removed on 03/30/17 - Nephrology is following - Pt was previously being treated with Vancomycin 1 gram post-dialysis on Sat-Sat, to be completed on 04/13/16 according to discharge summary from [facility]. - Pt receiving dialysis, 04/09/17 - Monitor labs - Pt also reportedly receives Procrit three times per week according to the previous discharge summary Multiple Myeloma - Diagnosed in 2010 and had multiple pathologic fractures s/p radiation therapy and chemo and underwent autologous bone marrow transplant in 2013 - He follows with Dr. Mayes - Cont. on Thalomid 50 Mg PO DAILY - Dr. Magaña spoke with Dr. Mayes on the phone on 04/09/17 about the pts status with his MM, she reports that the pt has progressive MM and at this point is not a candidate for further treatment. She did states that she felt Hospice would be appropriate. Recurrent DVTs Recent hematuria - Pt had been on Coumadin. 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 Assessment and plan formulated with Majo Vasquez PA-C. I agree with the above. Majo Vasquez Apr 11, 2017 08:31 Bobby Magaña DO Apr 11, 2017 11:43
[2017-04-11 08:35] VITALS: O2SAT 95
[2017-04-11] MEDS: VANCOMYCIN INJ 1,000 MG in SODIUM CHLOR 0.9% 250 ML INJ 250 ML IV SCH (10:22)
[2017-04-11] MEDS: GENTAMICIN SULFATE (DIALYSIS USE ONLY) 20 MG/2 ML VIAL OTHER PRN (10:23)
--- NOTE | 2017-04-11 11:12 | HHI.NPPN ---
Subjective General Problems: Anemia Renal Failure: Chronic, End Stage Renal Disease Interval History Seen during dialysis.His son, HUNG, is meeting with hospice this morning. He is alert, verbal, appears competent. (Nadia Aguilar) Review of Systems General Constitutional: Fatigue (Nadia Aguilar) Objective Data Data 04/11/17 04/12/17 19:00 07:00 Intake Total 200 ml Balance 200 ml Intake Oral 200 ml Vital Signs Date Time Temp Pulse Resp B/P (MAP) Pulse Ox O2 Delivery O2 Flow Rate FiO2 04/11/17 08:35 95 21 04/11/17 06:02 99.0 105 18 99/63 (75) 95 04/10/17 16:09 97.7 94 22 93/58 (70) 94 (Nadia Aguilar) -: 04/09/17 1628 04/09/17 0930 Imaging Last [address] 04/09/17 0000 Signed Impressions: Service Date/Time: Monday, April 10, 2017 14:48 - CONCLUSION: Abnormal calvarium as described above Cranial contents unremarkable. Danie Serrano MD FACR Tubes & Lines: Vas-Cath (Nadia Aguilar) Physical Exam General Appearance: Well Developed, No Acute Distress, Comfortable, Malnourished (Nadia Aguilar) Eyes Eye Exam: Pupils Equal (Nadia Aguilar) Ears & Nose Ears & Nose Exam: Tympanic Membranes Normal (Nadia Aguilar) Neck Neck Exam: Neck Supple, Trachea Midline (Nadia Aguilar) Pulmonary Resp Exam: Clear Bilaterally, Breath Sounds Equal (Nadia Aguilar) Cardiology CV Exam: Regular (Nadia Aguilar) Gastrointestinal/Abdomen GI Exam: Soft, Non-Tender, Bowel Sounds Present (Nadia Aguilar) Musculoskeletal MS Exam: Joints Intact, Atrophy, Unable to Ambulate (Nadia Aguilar) Integumentary Skin Exam: Clear, Warm, Dry, Intact (Nadia Aguilar) Extremeties Extremities Exam: No Edema, Pedal Pulses Palpable (Nadia Aguilar) Neurologic Neuro Exam: Alert, Awake, Oriented, Speech Clear, Moving All Extremities (Nadia Aguilar) Psychiatric Psych Exam: Appropriate Responses (Nadia Aguilar) Assessment/Plan Discussed Condition With: Patient Assessment Summary: Anemia of CKD, Hypertension, End Stage Renal Disease Electrolyte Assessment: Hypokalemia Problem List: (1) ESRD (end stage renal disease) ICD Codes: N18.6 - End stage renal disease Plan: Seen during dialysis on a 3K, 350 BFR, goal 2L Continue Dialysis TTS Vascath in L IJ for HD use Monitor electrolytes and fluid status. Avoid Gadolinium. High protein diet ordered. Supplements added. Fluid restriction to 1500 ml/day. (2) Myeloma ICD Codes: C90.00 - Multiple myeloma not having achieved remission Plan: Has been on chemotherapy. Details of his disease and prognosis are not known to me at this time. Pt reportedly wanted hospice services at admission, possible transfer after meeting with hospice services today. (3) Sepsis ICD Codes: A41.9 - Sepsis, unspecified organism Plan: Apparently diagnosed with MRSA sepsis recently. Most likely due to Permcath, which was remoed. He now has a Vascath. Has been on Vancomycin with dialysis. Stop date is 04/13/17 (4) Anemia ICD Codes: D64.9 - Anemia, unspecified Plan: Hemoglobin is acceptable. (Nadia Aguilar) Plan patient was seen and examined. Agree with above assessment and plan. (Dawit Huber MD) Nadia Aguilar Apr 11, 2017 11:12 Dawit Huber MD Apr 11, 2017 15:05
--- NOTE | 2017-04-11 14:06 | HHI.PYPN ---
Subjective Remarks Patient seen and examined with nurse. Chart reviewed. Case d/w Dr. Magaña and Dr. Randolph. Case discussed with nursing staff; no behavioral issues overnight. Patient was apparently refusing hospice placement this morning, although son (acting as HCS) was supportive of placement. On my exam, patient presents as alert but confused. He is ambivalent about hospice but does not decline placement for me. Mental Status Examination Appearance: Disheveled Consciousness: Alert Orientation: Person, Date/Time (month) Motor Activity: Other (a little less psychomotor slowed.) Speech: Hesitant, Slow Language: Adequate Attention and Concentration: Other (remains impaired) Mood: Other ("ok") Affect: Blunt Thought Process & Associations: Other (slowed) Thought Content: Appropriate Hallucination Type: None Delusion Type: None Suicidal Ideation: No Suicidal Plan: No Suicidal Intention: No Homicidal Ideation: No Homicidal Plan: No Homicidal Intention: No Insight: Poor Judgment: Poor Results Labs Date/Time Source Procedure Growth Status 04/07/17 06:05 Urine Clean Catch Urine Culture - Final NO GROWTH IN 48 HOURS. Complete Vitals/IOs Vital Signs Date Time Temp Pulse Resp B/P (MAP) Pulse Ox O2 Delivery O2 Flow Rate FiO2 04/11/17 08:35 95 21 04/11/17 06:02 99.0 105 18 99/63 (75) 04/07/17 12:02 Room Air Intake and Output 04/11/17 04/11/17 04/12/17 08:00 16:00 00:00 Intake Total 0 ml 200 ml Output Total 1200 ml Balance 0 ml -1000 ml Assessment & Plan Problem List: (1) Adjustment disorder with depressed mood ICD Codes: F43.21 - Adjustment disorder with depressed mood (2) Delirium due to another medical condition ICD Codes: F05 - Delirium due to known physiological condition Assessment & Plan Estimated LOS: days Request HC Surrog/Guard Advoc?: Yes Dl Serrano MD Apr 11, 2017 14:06
[2017-04-11] MEDS ORDERED: SODIUM CHLORID 0.9% 500 ML INJ 500 ML IV ONE (14:15)
--- NOTE | 2017-04-11 14:23 | HHI.PR ---
Subjective Remarks Called to reevaluate pt d/t hypotension. Pt with NO acute complaints. But drifting off to sleep during conversation. Objective Vitals Vital Signs Date Time Temp Pulse Resp B/P (MAP) Pulse Ox O2 Delivery O2 Flow Rate FiO2 04/11/17 08:35 95 21 04/11/17 06:02 99.0 105 18 99/63 (75) 95 04/10/17 16:09 97.7 94 22 93/58 (70) 94 04/11/17 04/11/17 04/12/17 15:00 23:00 07:00 Intake Total 200 ml Output Total 1200 ml Balance -1000 ml Intake Oral 200 ml Hemodialysis 1200 ml Result Diagram: 04/09/17 1628 04/09/17 0930 Imaging Last Impressions Head CT 04/09/17 0000 Signed Impressions: Service Date/Time: Monday, April 10, 2017 14:48 - CONCLUSION: Abnormal calvarium as described above Cranial contents unremarkable. Danie Serrano MD FACR Objective Remarks General: NAD, Awake and alert but then drifting off to sleep Chest: CTA Cardiac: Regular Abd: +BS, soft ND/NT Ext: No edema A/P Problem List: (1) Depression ICD Codes: F32.9 - Major depressive disorder, single episode, unspecified Plan: - Pt is a 62 y/o male with Multiple Myeloma, chronic renal failure on HD, and who was recently hospitalized at [facility] from 03/27/17 to 04/05/17 with Methicillin resistant Staph Epidermidis bacteremia and had PermCath removed on 03/30/17. According to the discharge summary from [facility] he was found to have an acute metabolic encephalopathy secondary to sepsis and possible uremia and an infected PermCath with Methicillin resistant Staph Epidermidis and was treated with Vancomycin 1 gram post-dialysis on Rit-Gychm-Heu, to be completed on . The pt states that he only does dialysis two days per week. He states that he did receive his normal dialysis on 04/06/17. Prior to his hospitalization at [facility] the pts Coumadin, which he was taking for recurrent DVTs, was stopped due to hematuria and was following outpt with Urology. Depression [place] Act for suicidal ideation -Pt was admitted to [facility] on 04/07/17 under [place] Act for reported suicidal ideation. Pt states that after his prolonged hospitalization he wasn't sure he wanted to continue with things and was trying to decide about Hospice. He states that his son thought that he was being suicidal and called the police. Pt denies any suicidal ideation at the time of my evaluation. - Psychiatry is following - Depression management per Psychiatry - Discussed the case with Dr. Waite today who has spoken with the pts family and pt reported told his son that he was going to intentionally overdose with pills and wanted his son at the bedside when he did it and this was the reason for the [place] Act. - Pt seems to have some intermittent confusion but on 04/09/17 at the time of examination pt was AAOx3 ?delirium vs. underlying dementia vs. other - Urine culture with no growth in 48 hours - Thyroid studies are WNL - family/POA requesting hospice and DNR - code status changed to DNR - Case d/w Palliative Medicine, Dr. Randolph (04/11/17) - Case d/w Psychiatry, Dr. Alex (04/11/17) - Dr. Alex in agreement with discharge to hospice care center today. ESRD on HD Recent Methicillin resistant Staph Epidermidis bacteremia and had PermCath removed on 03/30/17 - Nephrology is following - Pt was previously being treated with Vancomycin 1 gram post-dialysis on Sat-Sat, to be completed on 04/13/16 according to discharge summary from [facility]. - Pt receiving dialysis, 04/09/17 - Monitor labs - Pt also reportedly receives Procrit three times per week according to the previous discharge summary Multiple Myeloma - Diagnosed in 2010 and had multiple pathologic fractures s/p radiation therapy and chemo and underwent autologous bone marrow transplant in 2013 - He follows with Dr. Mayes - Cont. on Thalomid 50 Mg PO DAILY - Dr. Magaña spoke with Dr. Mayes on the phone on 04/09/17 about the pts status with his MM, she reports that the pt has progressive MM and at this point is not a candidate for further treatment. She did states that she felt Hospice would be appropriate. Recurrent DVTs Recent hematuria - Pt had been on Coumadin. This has been on hold due to hematuria - Pt follows as an outpt with Urology - Heparin 5000 units BID for now Steroid induced diabetes mellitus - NovoLog SSI - Accu checks - Home meds continued (2) ESRD (end stage renal disease) ICD Codes: N18.6 - End stage renal disease (3) Myeloma ICD Codes: C90.00 - Multiple myeloma not having achieved remission (4) Anemia ICD Codes: D64.9 - Anemia, unspecified Bobby Magaña DO Apr 11, 2017 14:23
[2017-04-11] MEDS ORDERED: HALO0.5T PO (14:30)
--- NOTE | 2017-04-11 14:30 | HHI.DS ---
Psychiatry Discharge Summary Inpatient Psychiatric care?: Yes Advance Directive: No Reason Not Provided: offered Mental Health AdvanceDirective: No Health Care Proxy: No Admission Admission Date Apr 07, 2017 at 15:09 Admission Diagnosis: (1) Adjustment disorder with depressed mood ICD Code: F43.21 - Adjustment disorder with depressed mood Brief History Patient seen and examined with nurse. Chart reviewed. I saw the patient in consultation on 04/07, and the patient was seen for H&P by Dr. Caban yesterday. I have reviewed his documentation. Case discussed with nurse and in treatment team. On my examination today, patient presents as fairly encephalopathic. He is oriented to person only and is unable to perform attention/concentration testing. Affect is dysphoric and somewhat blunted. Thought process is slowed, and the patient appears generally psychomotor slowed. He is anhedonic and withdrawn. Speech is soft. He denies SI/HI but seems unreliable to contract for safety in his present state. He denies AVH. No delusions. No hypomanic/manic symptoms. Complains of feeling tired. No other physical complaints. I obtained patient's past psychiatric, family, chemical dependency and social history during my initial consultation on 04/07, and these data are unchanged today. I was able to obtain collateral information from patient's son, Blaine, today over the phone. He reports that the patient has no psychiatric history but has been intermittently confused over the last 90 days or so. This past Saturday, patient told Blaine that he was ready for hospice. Patient then called Saturday and entreated his son to come urgently to his house. When Blaine arrived, patient reportedly said he was "ready to end it all" and told Blaine that he wanted to take pills and not wake up. Blaine notes that during this period of confusion over the last 3 months or so patient's functional status has been worsening, and he has been neglecting to eat or bathe and has also been missing dialysis treatments. I discuss plan of care with Blaine in his role as presumptive HCS, and he is in agreement. I have also notified Blaine that there are a few medications, including the Thalidomide, that will need to be brought in from home as they are not stocked in the pharmacy, and Blaine says he will bring them in. Tobacco Use In Past 30 Days: No Tobacco Past 30 Days Alcohol Use: Never Hospital Course Patient was admitted to a locked, inpatient psychiatric unit. A general medical consultation was obtained. Nephrology consultation was obtained. Palliative medicine consultation was obtained. Patient was seen and examined on the unit by psychiatry and also visited by counselor. Psychotropic medications were adjusted. Patient tolerated medications well without side effects. Patient had some improvement in presenting psychiatric symptomatology during the course of his hospital stay. In particular, the patient became more alert although he remained quite confused on mental status testing. There was no evidence of any suicidality or homicidality on the inpatient unit. Collateral was obtained from patient's son, Marshall. Son Marshall, acting as healthcare surrogate, has elected to pursue hospice for patient, and the patient has been accepted to hospice facility. On the day of discharge: Patient seen and examined on my morning round with nurse. Chart reviewed. Case discussed with nursing staff. No behavioral issues overnight. On my examination this morning, the patient remains quite confused although he is more alert. He is disoriented, his delayed recall is impaired, and he is unable to perform attention/concentration testing. He denies any suicidal or homicidal ideation. He denies any audiovisual hallucinations. He denies issues with mood. He denies side effects from medications. He remains incapacitated to make medical/psychiatric treatment decisions at this time secondary to ongoing encephalopathic state. I was called urgently to the floor this afternoon as patient was becoming increasingly hypotensive and tachycardic. Shortly after my arrival, I was joined by Dr. Randolph and Dr. Magaña. We have evaluated the patient and Dr. Randolph feels that patient is appropriate for hospice placement. Patient is agreeable to proceeding to hospice this afternoon. I have myself notified son Marshall of patient's change in status and plan for transfer to hospice today. He thanks me for the call and is in agreement with the plan. Patient no longer meets criteria for involuntary psychiatric hospitalization, and an appropriate less restrictive setting has been found, namely hospice. Patient will be transferred to hospice today. Patient to return to psychiatric emergency room for any concerning psychiatric symptoms. Results Blood Pressure 99 / 63 Vital Signs Date Time Temp Pulse Resp B/P (MAP) Pulse Ox O2 Delivery O2 Flow Rate FiO2 04/11/17 08:35 95 21 04/11/17 06:02 99.0 105 18 99/63 (75) 04/07/17 12:02 Room Air Laboratory Tests Test 04/09/17 09:30 04/09/17 16:28 Creatinine 4.05 MG/DL (0.60-1.30) Estimat Glomerular Filtration Rate 15 ML/MIN (>89) White Blood Count 3.9 TH/MM3 (4.0-11.0) Red Blood Count 3.47 MIL/MM3 (4.50-5.90) Hemoglobin 10.4 GM/DL (13.0-17.0) Hematocrit 31.3 % (39.0-51.0) Platelet Count 88 TH/MM3 (150-450) Monocytes (%) (Auto) 13.5 % (0.0-8.0) Lymphocytes # (Auto) 0.7 TH/MM3 (1.0-4.8) Band Neutrophils % 9 % (0-6) Monocytes % 9 % (0-8) Metamyelocytes 2 % (0-1) Myelocytes 2 % (0-0) Platelet Estimate LOW (NORMAL) Vitamin B12 Level GREATER THAN 2000 PG/ML Laboratory Results Test 04/08/17 05:22 Cholesterol Level 75 MG/DL (120-200) HDL Cholesterol 31.9 MG/DL (40.0-60.0) Hemoglobin A1c 5.9 % (4.3-6.0) LDL Cholesterol 1 MG/DL (0-99) Triglycerides Level 212 MG/DL (42-150) Summary of Procedures None done Imaging Last Impressions Head CT 04/09/17 0000 Signed Impressions: Service Date/Time: Monday, April 10, 2017 14:48 - CONCLUSION: Abnormal calvarium as described above Cranial contents unremarkable. Danie Serrano MD FACR Pending results at discharge: Yes (Thiamine level) Medications # of Antipsychotic meds at D/C: 1 Approp Antipsych med options 1 - Minimum of three failed multiple trials of monotherapy. 2 - Documented plan to taper to monotherapy due to previous use of multiple meds OR cross-taper in progress at D/C. 3 - Documentation of augmentation of Clozapine. 4 - Justification other than those listed in allowable values 1-3, document here : Discharge Discharge Date: Apr 11, 2017 Discharge Diagnosis: (1) Delirium due to another medical condition Diagnosis: Principal ICD Code: F05 - Delirium due to known physiological condition Pt Condition on Discharge: Deteriorating (medically deteriorating. Psychiatrically stable.) Discharge Disposition: Hospice/Med Facility Discharge Instructions Diet Instructions: Renal Failure Diet Activities you can perform: Weight Bearing as Murali Scheduled Appointment: as per counselor's notes New Medications: Haloperidol (Haloperidol) 0.5 Mg Tab 0.5 MG PO BID for Delirium for 15 Days, #30 TAB 1 Refill Continued Medications: Gabapentin (Gabapentin) 300 Mg Cap 300 MG PO DAILY, #30 CAP 0 Refills Hydromorphone (Hydromorphone) 4 Mg Tab 4 MG PO Q4HR PRN for PAIN, #30 TAB 0 Refills Lorazepam (Lorazepam) 1 Mg Tab 1 MG PO Q8H PRN for ANXIETY, TAB 0 Refills Discontinued Medications: Acyclovir (Acyclovir) 400 Mg Tab 200 MG PO DAILY for Mgmt Viral Infection, TAB 0 Refills Atorvastatin (Atorvastatin) 80 Mg Tab 80 MG PO DAILY for Cholesterol Management, #30 TAB 0 Refills Dexamethasone (Dexamethasone) 4 Mg Tab 12 MG PO SATURDAY, #60 TAB 0 Refills Epoetin Inj (Procrit Inj) 10,000 Unit/Ml Inj 38145 UNITS SQ 3XWEEK for Anemia, #12 VIAL 0 Refills Ipratropium-Albuterol Neb (Duoneb) 0.5-2.5 Mg/3 Ml Neb 1 NEBULE INH TID NEB for Breathing Treatment, #90 NEBULE 0 Refills Linagliptin (Tradjenta) 5 Mg Tab 5 MG PO DAILY for Blood Sugar Management, #30 TAB 0 Refills Metoprolol Tartrate (Metoprolol Tartrate) 25 Mg Tab 12.5 MG PO BID, #60 TAB 0 Refills Polyethylene Glycol 3350 Powder (Miralax Powder) 17 Gm Powd 17 GM PO DAILY PRN for constipation, #1 CAN 0 Refills Mix and dissolve one measuring cap-ful (17 grams) in water or juice. Ranitidine (Zantac) 150 Mg Tab 150 MG PO DAILY for Reduce Stomach Acid, #30 TAB 0 Refills Tamsulosin (Flomax) 0.4 Mg Cap 0.4 MG PO HS for Manage Prostate Problems, #30 CAP 0 Refills Thalidomide (Thalomid) 50 Mg Cap 50 MG PO DAILY for Chemotherapy Management, CAP 0 Refills Vancomycin Inj (Vancomycin Inj) 1 Gram Inj 1000 MG IV TuThSa post dialysis for Infection, BAG 0 Refills To be completed on 04/13/17 Warfarin (Warfarin) 4 Mg Tab 4 MG PO DAILY for Blood Clot Prevention, #30 TAB 0 Refills Discharge Time > 30 minutes Mental Status Examination Appearance: Disheveled Consciousness: Alert Orientation: Person Motor Activity: Other (minimal psychomotor slowing today. No hand tremor, no dystonia, no dyskinesia, no other motor abnormalities noted.) Speech: Hesitant, Slow Language: Adequate Attention and Concentration: Other (impaired) Memory: Impaired Mood: Appropriate Affect: Blunt Thought Process & Associations: Other (slowed) Thought Content: Appropriate Hallucination Type: None Delusion Type: None Suicidal Ideation: No Suicidal Plan: No Suicidal Intention: No Homicidal Ideation: No Homicidal Plan: No Homicidal Intention: No Insight: Poor Judgment: Poor Discharge/Advance Care Plan Health Problems: (1) Delirium due to another medical condition Goals to promote your health * To prevent worsening of your condition and complications * To maintain your health at the optimal level Directions to meet your goals Take your medications as prescribed Follow your dietary instruction Follow activity as directed Keep your appointments as scheduled Take your immunizations and boosters as scheduled If your symptoms worsen call your PCP, if no PCP go to Urgent Care Center or Emergency Room For 29/10 questions related to your inpatient stay or results of tests pending at discharge, please contact Dr. Dl Serrano at Smoking is Dangerous to Your Health. Avoid second hand smoking Dl Serrano MD Apr 11, 2017 14:30
[2017-04-11 14:33] VITALS: BP 74/48; PULSE 107; RESP 20; O2SAT 95
--- NOTE | 2017-04-11 20:31 | HHI.HCPN ---
Reason for visit a. To assist with evaluation and management of symptoms including: Confusion ; depression; neuropathic pain b. To assist medical decision maker(s) with: better understanding of current medical conditions; weighing benefits/burdens of medical treatment options; making medical treatment decisions. . Subjective/Interval History Plans were in place to have patient discharged to [facility]. today. The patient's son heavily endorsed this plan. The patient who is awake and alert but still somewhat confused explicitly said he did not want hospice care. We were in the process of arranging another meeting with the son, the patient, and the palliative care team. However the patient returned from dialysis and per his primary nurse on the floor looked poorly. Vital signs showed a systolic blood pressure in the 70s. I visited the patient at that time with Dr. Magaña and Dr. Serrano the patient denied pain and denied shortness of breath. He was answering questions somewhat slowly and easily drifted to sleep but answers were for the most part appropriate. He, nevertheless, had poor insight and understanding of his illness. Dr. Magaña, Dr. Serrano and myself felt he was incapacitated to make his own health care decisions. I explained to the patient that he was not tolerating dialysis. I also explained that he was not well enough to tolerate any further cancer directed treatments at this time. I recommended that we focus on comfort at this time. Should he improve and become strong enough to tolerate either further dialysis or further cancer directed treatments he could always choose to do so. Patient agreed. I approve going forward with hospice enrollment. Dr. Magaña and Dr. Serrano agreed on discharging the patient to hospice care. CODE STATUS was changed to NO CODE. Case was discussed with the hospice nurse. [facility] orders will be provided by the [facility] physician. . Family/friend interactions I did not personally speak to the patient's son today. The hospice nurse had a conversation. The patient's son endorsed hospice care at the [facility] in [place]. . Advance Directives Living Will: Never completed Health Care Surrogate: Never completed Durable Power of Gas Leak Inspector: Never completed Advance Directive Specifics Date completed: No one is able to find an advance directive. . Health Care Surrogate(s): No written designation of health care surrogate available. . Documented care wishes: No written documentation of health care preferences / wishes available. . Significant change in goals: Son and patient have accepted discharge to [facility]. . Objective Vital Signs Date Time Temp Pulse Resp B/P (MAP) Pulse Ox O2 Delivery O2 Flow Rate FiO2 04/11/17 15:10 2.00 04/11/17 14:33 107 20 74/48 (57) 95 04/11/17 08:35 95 21 04/11/17 06:02 99.0 105 18 99/63 (75) 95 . Physical Exam CONSTITUTIONAL/GENERAL: This is an adequately nourished patient, in no apparent distress. Intermittently confused with some cognitive slowing. Easily drifts off to sleep. TUBES/LINES/DRAINS: Dialysis catheter left neck SKIN: No jaundice, rashes, or lesions. No wounds seen anteriorly. Skin temperature appropriate. Not diaphoretic. HEAD: Atraumatic. Normocephalic. EYES: Pupils equal and round. Extraocular motions intact. No scleral icterus. No injection or drainage. Fundi not examined. ENT: Hearing grossly normal. Nose without bleeding or purulent drainage. NECK: Trachea midline. Supple, nontender. CARDIOVASCULAR: Regular rate and rhythm without murmurs, gallops, or rubs. No JVD. Peripheral pulses symmetric. RESPIRATORY/CHEST: Symmetric, unlabored respirations. Clear to auscultation. Breath sounds equal bilaterally. No wheezes, rales, or rhonchi. No cough heard today. GASTROINTESTINAL: Abdomen soft, non-tender, nondistended. No hepato-splenomegaly , or palpable masses. No guarding. Bowel sounds present. GENITOURINARY: Not examined. MUSCULOSKELETAL: Extremities without clubbing, cyanosis, or edema. LYMPHATICS: Not examined. NEUROLOGICAL: Somewhat sleepy. Can easily drift off to sleep if not engaged in conversation. Follows commands. Intermittently confused. Cognitively slow. Moves all extremities. PSYCHIATRIC: No obvious anxiety/depression. No apparent hallucinations or other psychotic thought process. . Diagnostic Tests Laboratory Laboratory Tests Test 04/09/17 09:30 04/09/17 16:28 Blood Urea Nitrogen 18 MG/DL (7-18) Creatinine 4.05 MG/DL (0.60-1.30) Random Glucose 94 MG/DL (74-106) Calcium Level 10.0 MG/DL (8.5-10.1) Magnesium Level 1.9 MG/DL (1.5-2.5) Sodium Level 139 MEQ/L (136-145) Potassium Level 4.3 MEQ/L (3.5-5.1) Chloride Level 103 MEQ/L (98-107) Carbon Dioxide Level 30.0 MEQ/L (21.0-32.0) Anion Gap 6 MEQ/L (5-15) Estimat Glomerular Filtration Rate 15 ML/MIN (>89) White Blood Count 3.9 TH/MM3 (4.0-11.0) Red Blood Count 3.47 MIL/MM3 (4.50-5.90) Hemoglobin 10.4 GM/DL (13.0-17.0) Hematocrit 31.3 % (39.0-51.0) Mean Corpuscular Volume 90.2 FL (80.0-100.0) Mean Corpuscular Hemoglobin 30.0 PG (27.0-34.0) Mean Corpuscular Hemoglobin Concent 33.2 % (32.0-36.0) Red Cell Distribution Width 16.6 % (11.6-17.2) Platelet Count 88 TH/MM3 (150-450) Mean Platelet Volume 8.7 FL (7.0-11.0) Neutrophils (%) (Auto) 68.4 % (16.0-70.0) Lymphocytes (%) (Auto) 17.1 % (9.0-44.0) Monocytes (%) (Auto) 13.5 % (0.0-8.0) Eosinophils (%) (Auto) 0.7 % (0.0-4.0) Basophils (%) (Auto) 0.3 % (0.0-2.0) Neutrophils # (Auto) 2.7 TH/MM3 (1.8-7.7) Lymphocytes # (Auto) 0.7 TH/MM3 (1.0-4.8) Monocytes # (Auto) 0.5 TH/MM3 (0-0.9) Eosinophils # (Auto) 0.0 TH/MM3 (0-0.4) Basophils # (Auto) 0.0 TH/MM3 (0-0.2) CBC Comment AUTO DIFF Differential Total Cells Counted 100 Neutrophils % (Manual) 65 % (16-70) Band Neutrophils % 9 % (0-6) Lymphocytes % 13 % (9-44) Monocytes % 9 % (0-8) Neutrophils # (Manual) 3.0 TH/MM3 (1.8-7.7) Metamyelocytes 2 % (0-1) Myelocytes 2 % (0-0) Differential Comment FINAL DIFF MANUAL Atypical Lymphocytes % (0-0) Platelet Estimate LOW (NORMAL) Platelet Morphology Comment NORMAL (NORMAL) Ammonia 28 MCMOL/L (11-32) Vitamin B12 Level GREATER THAN 2000 PG/ML Rapid Plasma Reagin NON-REACTIVE (NON-REACTVE) HIV (1&2) Antibody NEGATIVE (NEGATIVE) . Result Diagram: 04/09/17 1628 04/09/17 0930 Microbiology Microbiology Date/Time Source Procedure Growth Status 04/07/17 06:05 Urine Clean Catch Urine Culture - Final NO GROWTH IN 48 HOURS. Complete . Imaging Last Impressions Head CT 04/09/17 0000 Signed Impressions: Service Date/Time: Monday, April 10, 2017 14:48 - CONCLUSION: Abnormal calvarium as described above Cranial contents unremarkable. Danie Serrano MD FACR . Assessment and Plan Disease Oriented Problem List: (1) Myeloma Comment: End stage. Has been through multiple treatment modalities including bone marrow transplant. Heme / onc (Dr. Mayes) does not feel he is a candidate for further cancer directed treatments. . . (2) Anemia Comment: Probably myeloma related. . (3) Thrombocytopenia Comment: Probably secondary to the myeloma. . (4) ESRD (end stage renal disease) Comment: On hemodialysis. . (5) Recurrent deep vein thrombosis (DVT) (6) Hypoalbuminemia (7) Delirium due to another medical condition (8) Adjustment disorder with depressed mood (9) Hypotension Comment: Had systolic blood pressures in the 70s after dialysis on 04/11/17 . Symptom Scale: (1) Neuropathic pain 0-10 Scale: Unable to quantify Comment: Mostly inovlves lower extremities. Bonnyman to be chemo induced. Patient reports it is adequately controlled at this time. . (2) Confusion 0-10 Scale: Unable to quantify Comment: Confusion is probably multifactorial. Part of this is likely a medical delirium. . (3) Depression 0-10 Scale: Unable to quantify Comment: Probably secondary to delirium from disease, medications. Also exacerbated by depression and adjustment disorder. Pertinent Non-Medical Issues Psychosocial: x 7 years. 3 sons -- jerardo is most involved. Preston also lives locally but is peripherally involved. Landon lives in [place], [place] and has not seen his father for years. Spiritual: Chart indicates he comes from a Shinto tradition. He believes in God. Legal: No known advance directive. Since he is legally , health care proxy would fall to his three adult children. Preston and Landon have opted out leaving Jerardo as the legal proxy. Ethical issues impacting care: No known ethical issues at this time. . Important Contacts Blaine Azul (son and proxy) [phone] and [phone] Jerardo is the primary caregiver. Preston Azul [phone] (also lives locally, but has been less involved in patient's care) Landon Azul (1/2 brother of Lakshmi -- lives in [place] and has not seen his father for years) [phone] . Prognosis Patient has end stage Multiple Myeloma. He has had frequent hospitalizations, multiple pathologic fractures, and is dialysis dependent. His oncologist does not consider him a candidate for further aggressive disease directed treatments. He is having difficulty tolerating dialysis due to hypotension Hospice has been recommended. In my clinical opinion, the patient has a terminal condition. . Code Status: No Code (CODE STATUS changed to No Code on 04/11/17.) Plan == Code Status : Code status changed to NO CODE on 04/11/17. == Decision making: Patient is frequently confused and has little insight at this time into his disease. I believe he is incapacitated to make his own health care decisions. As there is no known designated health care surrogate and there is no legal spouse, proxy decision making would fall to his three sons. Sons Landon and Preston have opted out via telephone conversations. Son , Jerardo, is therefore the legal health care proxy. == Goals of medical treatment: Patient is confused and cannot provide his own coherent goals. Son is opting to enroll patient in hospice and discharge him to the hospice care center in [place]. == Symptoms: * Neuropathic pain: appears to be adequately controlled on the gabapentin. Should he need an opiate, would recommend low dose methadone (e.g. 2.5 mg po/sl q 6 hours prn pain/sob) as methadone does not require kidneys for metabolism. * Confusion: As noted above, this is probably a medical delirium. Agree with the haloperidol. No further recommendations at this time. * Depression: Might benefit from an anti-depressant. Will yield to psych in this regard. * Hypotension : Having difficulty tolerating dialysis. == Discharge to hospice care center today. == Case discussed with hospice nurse. Hospice orders will be provided by hospice care center physician. . . Time Spent Total Floor Time (mins): 40 (Total floor time was greater than 35 minutes and included chart review, patient exam, collaboration with hospice nurse; above- referenced discussions and collaboration with the patient's psychiatrist and consulting medical physician.) Face to Face Time (mins): 15 >50% Counseling/Coord of Care: Yes Attestation To help prompt me to consider important information that might be impacting today's encounter and assessment, information from prior notes written by myself or my colleagues may have been "brought forward" into today's note. My signature on this note, however, is an attestation that I personally performed the exam, history, and/or decision-making noted today, and, unless otherwise indicated, the interactions with patient, family, and staff as well as the review of records all occurred today. I also attest that the listed assessment and stated plan reflect my best clinical judgment today based on the combination of historical information, prior notes, and today's exam/ interactions. When time spent is documented, it refers only to time spent today by the signer, or if indicated, combined time spent today by collaborating physician/nurse practitioner. . Jed Randolph MD Apr 11, 2017 20:31
[2017-04-12] MEDS ORDERED: DEXAMETHASONE 4 MG TAB PO SCH (09:00)
== END 2017-04-11 16:12 | disposition hospice, inpatient (51) | DRG 881 ==
LOC: NEPD 00:15 → NEDA 15:09 → H4EA 16:30
PROVIDERS: ADMIT Psychiatry & Neurology Psychiatry; ATTEND Psychiatry & Neurology Psychiatry
PROC: 5A1D70Z Performance of Urinary Filtration, Intermittent, Less than 6 Hours Per Day (ICD-10-PCS; principal; 2017-04-09)
DX: F43.21 Adjustment disorder with depressed mood (principal); T80.211A Bloodstream infection due to central venous catheter, initial encounter; C90.00 Multiple myeloma not having achieved remission; N18.6 End stage renal disease; Z94.81 Bone marrow transplant status; F05 Delirium due to known physiological condition; D69.59 Other secondary thrombocytopenia; I95.9 Hypotension, unspecified; I12.0 Hypertensive chronic kidney disease with stage 5 chronic kidney disease or end stage renal disease; R45.851 Suicidal ideations; G47.00 Insomnia, unspecified; E87.6 Hypokalemia; G62.0 Drug-induced polyneuropathy; G89.29 Other chronic pain; E09.9 Drug or chemical induced diabetes mellitus without complications; E88.09 Other disorders of plasma-protein metabolism, not elsewhere classified; Y84.8 Other medical procedures as the cause of abnormal reaction of the patient, or of later complication, without mention of misadventure at the time of the procedure; D63.1 Anemia in chronic kidney disease; R31.9 Hematuria, unspecified; Z66 Do not resuscitate; Z51.5 Encounter for palliative care; T45.1X5A Adverse effect of antineoplastic and immunosuppressive drugs, initial encounter; T38.0X5A Adverse effect of glucocorticoids and synthetic analogues, initial encounter; Z79.891 Long term (current) use of opiate analgesic; Z99.2 Dependence on renal dialysis; Z92.3 Personal history of irradiation; Z92.21 Personal history of antineoplastic chemotherapy; Z86.718 Personal history of other venous thrombosis and embolism; Z86.14 Personal history of Methicillin resistant Staphylococcus aureus infection; Z91.15 Patient's noncompliance with renal dialysis; Z79.01 Long term (current) use of anticoagulants
CPT/HCPCS: 70450; 80048; 80053; 80061; 80307; 81001; 82140; 82607; 82948; 83036; 83735; 84100; 84425; 84443; 85007; 85027; 85610; 85730; 86592; 86703; 87086; 90935; 93005; 96365; 96374; 96375; 99285; J1580; J1644; J3370; J7030; J7050; P9047; Q4081